=== PATIENT | male | born 1975 ===

== ENCOUNTER 2017-11-29 15:31 | Inpatient (IN) | payer SELFPAY ==
[2017-11-29] MEDS ORDERED: Sodium Chloride 0.9% 1,000 ML IV STA ×2 (16:01→20:28)
--- NOTE | 2017-11-29 16:06 | ED PDOC ---
HPI: Abdomen Chief Complaint (Nursing): Abdominal Pain Chief Complaint (Provider): abdominal pain History Per: Patient Onset/Duration Of Symptoms: Hrs Current Symptoms Are (Timing): Still Present Pain Scale Rating Of: 8 Location Of Pain/Discomfort: LLQ, Suprapubic Quality Of Discomfort: Stabbing, Gas Associated Symptoms: Chills, Urinary Symptoms. denies: Nausea, Vomiting, Diarrhea Exacerbating Factors: Movement Alleviating Factors: Rest Additional Complaint(s): 42 yo M with no known medical hx presented to ED with abdominal pain since 8 pm last night. Pain was 5/10 last night, and 8/10 this morning, which prompted visit to PMD, who referred to ED. Pt describes pain as stabbing in nature, started in LLQ, and radiates to suprapubic area. Alleviating factors- laying down. Aggravating factors - walking/movement. Did not take any meds at home. ROS: positive for dysuria- burning with urination x 2 days, chills, subjective fever; all other systems reviewed and negative. PMD: Dr. Ramiro Reese Denies chronic medical problems Surgeries: appendectomy age 6 Allergies: nkda Meds: none Social hx: denies tobacco, drug use, social alcohol use Fam hx: paternal DM2 Past Medical History Reviewed: Vital Signs Vital Signs: Last Vital Signs Temp 99.2 F 11/29/17 15:35 Pulse 101 H 11/29/17 15:35 Resp 16 11/29/17 15:35 BP 120/83 11/29/17 15:35 Pulse Ox 98 11/29/17 19:47 - Medical History PMH: No Chronic Diseases - Surgical History Surgical History: Appendectomy - Family History Family History: States: Diabetes - Social History Alcohol: Occasional Drugs: Denies - Allergies Allergies/Adverse Reactions: Allergies Allergy/AdvReac Type Severity Reaction Status Date / Time No Known Allergies Allergy Verified 11/29/17 15:35 Review of Systems ROS Statement: Except As Marked, All Systems Reviewed And Found Negative Constitutional: Positive for: Fever, Chills Gastrointestinal: Positive for: Abdominal Pain Genitourinary Male: Positive for: Dysuria Physical Exam - Reviewed Vital Signs Reviewed: Yes - Physical Exam Appears: Positive for: Non-toxic Skin: Positive for: Normal Color, Warm, Dry Eye Exam: Positive for: EOMI, PERRL ENT: Positive for: Pharynx Is (clear) Neck: Positive for: Supple Cardiovascular/Chest: Positive for: Regular Rate, Rhythm, Chest Non Tender Respiratory: Positive for: Normal Breath Sounds. Negative for: Accessory Muscle Use, Wheezing, Respiratory Distress Pulses-Post. Tibialis (L): 2+ Pulses-Post. Tibialis (R): 2+ Pulses-Radial (L): 2+ Pulses-Radial (R): 2+ Gastrointestinal/Abdominal: Positive for: Bowel Sounds, Soft, Tenderness (LLQ> suprapubic>RLQ) Back: Positive for: R CVA Tenderness. Negative for: L CVA Tenderness Extremity: Positive for: Capillary Refill (less than 2 sec). Negative for: Tenderness, Pedal Edema, Deformity Neurologic/Psych: Positive for: Alert, Oriented - Laboratory Results Result Diagrams: 11/29/17 16:25 11/29/17 16:25 - ECG O2 Sat by Pulse Oximetry: 98 Medical Decision Making Medical Decision Making: - CBC - CMP - 1L NS bolus - Urine dip - CT Abd/Pelvis w/ IV contrast -------- CBC: WBC 15.2 CT: IMPRESSION: Findings most compatible with marked segmental colitis affecting the sigmoid colon with prominent sympathetic cystitis favored as well. Two small abscesses are suspected cephalad to the dome of the urinary bladder. Extraluminal loculated peritoneal gas may indicate bowel perforation though this is not definite. Clinically correlate further. Etiology is likely infectious no inflammatory or even ischemic causes are not excluded. Underlying neoplasm is not favored but is not completely excluded. Blood cultures Started zosyn and vancomycin Continue fluids Admit to hospitalist service - Dr. Chowdary contacted, spoke to Dr. Bell. General surgery consult - Dr. Bell spoke to surgical first assistant. Attending: Dr. Missy Marks. Disposition - Clinical Impression Clinical Impression: Colitis, Abdominal pain - Patient ED Disposition Is Patient to be Admitted: Yes - Disposition Disposition Time: 19:46 Condition: STABLE - Pt Status Changed To: Hospital Disposition Of: Inpatient - Admit Certification Admit to Inpatient:: After my assessment, the patient will require hospitalization for at least two midnights. This is because of the severity of symptoms shown, intensity of services needed, and/or the medical risk in this patient being treated as an outpatient.
[2017-11-29 16:39] LABS: BASO % 0.2 % (0.0-2.0); EOS % 0.3 % (0.0-4.0); HEMOGLOBIN 15.5 g/dL (12.0-18.0); LYMPH # 1.8 K/uL (1.0-4.3); LYMPH % 11.9 % (20.0-40.0); MEAN CORPUSCULAR HGB CONC 33.7 g/dL (33.0-37.0); MEAN PLATELET VOLUME 8.8 fl (7.2-11.7); MONO # 1.4 K/uL (0.0-0.8); MONO % 9.2 % (0.0-10.0); NEUT # 11.9 K/uL (1.8-7.0); NEUT % 78.4 % (50.0-75.0); RBC 5.18 Mil/uL (4.40-5.90); RED CELL DISTRIBUTION WIDTH 14.5 % (11.5-14.5); WHITE BLOOD COUNT 15.2 K/uL (4.8-10.8)
[2017-11-29 16:51] LABS: ALB/GLOB RATIO 1.1 (1.0-2.1); ALBUMIN 4.5 g/dL (3.5-5.0); ALT/SGPT 27 U/L (21-72); AST/SGOT 31 U/L (17-59); BLOOD UREA NITROGEN 14 mg/dl (9-20); CALCIUM 9.5 mg/dL (8.4-10.2); GFR AFRICAN-AMERICAN > 60; GFR NON-AFRICAN AMERICAN > 60
[2017-11-29] MEDS ORDERED: Sodium Chloride 0.9% 50 ML IV ONE (16:54)
[2017-11-29] MEDS ORDERED: Iohexol 300 100 ML IJ ONE (16:54)
--- NOTE | 2017-11-29 18:12 | CT ---
Date of service: 11/29/2017 PROCEDURE: CT Abdomen and Pelvis with contrast HISTORY: Abd pain COMPARISON: None. TECHNIQUE: Following the intravenous administration of iodinated contrast material, a CT examination of the abdomen and pelvis performed from the domes of the diaphragms to the symphysis pubis with reformatted datasets provided not only axial but also sagittal and coronal planes. Oral contrast was not administered as per referring physician request. Contrast dose: Omnipaque 300, 95 cc Radiation dose: Total exam DLP = to 68.91 mGy-cm. This CT exam was performed using one or more of the following dose reduction techniques: Automated exposure control, adjustment of the mA and/or kV according to patient size, and/or use of iterative reconstruction technique. FINDINGS: LOWER THORAX: Unremarkable. LIVER: Unremarkable. No gross lesion or ductal dilatation. GALLBLADDER AND BILE DUCTS: Unremarkable. PANCREAS: Unremarkable. No gross lesion or ductal dilatation. SPLEEN: Unremarkable. ADRENALS: Unremarkable. No mass. KIDNEYS AND URETERS: Unremarkable. No hydronephrosis. No solid mass. VASCULATURE: Unremarkable. No aortic aneurysm. BOWEL: Stomach is collapsed and not well evaluated. No bowel obstruction is identified. However, there is gross thickening of the sigmoid colon with local pericolic reaction and limited inferior abdominal ascites associated. Reactive changes appear to extend to the urinary bladder which is collapsed but is suspected to have thickened tsang as well. There is a small area of fluid and gas collected between the urinary bladder and the sigmoid colon but close to the bladder. This may represent 2 small abscesses on the order of 1.5 cm greatest dimension in each case. No large abscess formation is appreciated or prominent free intrarenal gas. Extra luminal loculated gas is not excluded cephalad to the urinary bladder and may reflect sigmoid perforation. APPENDIX: Not clearly identified. Overall pattern does not favor appendicitis. Clinically correlate further. PERITONEUM: Please see bowel section above. No free intra peritoneal gas. LYMPH NODES: Unremarkable. No enlarged lymph nodes. BLADDER: Please see bowel section above. REPRODUCTIVE: Unremarkable. BONES: No acute fracture. OTHER FINDINGS: None. IMPRESSION: Findings most compatible with marked segmental colitis affecting the sigmoid colon with prominent sympathetic cystitis favored as well. Two small abscesses are suspected cephalad to the dome of the urinary bladder. Extraluminal loculated peritoneal gas may indicate bowel perforation though this is not definite. Clinically correlate further. Etiology is likely infectious no inflammatory or even ischemic causes are not excluded. Underlying neoplasm is not favored but is not completely excluded. The appendix is not identified and is not felt to be the cause of the impression described above. Clinically correlate further.
[2017-11-29] MEDS ORDERED: Piperacillin/Tazobact 3.375 GM in Sodium Chloride 0.9% 100 ML IVPB STA (18:54)
--- NOTE | 2017-11-29 19:51 | CP.PCM.HP ---
History of Present Illness - History of Present Illness History of Present Illness: 42 yo male with no significant PMH history came complaining of severe, persistent LLQ pain, non-radiating since last night accompanied with dysuria. Denied nausea or vomiting. Also denied fever or chills. Present on Admission - Present on Admission Any Indicators Present on Admission: No History of DVT/PE: No History of Uncontrolled Diabetes: No Urinary Catheter: No Decubitus Ulcer Present: No Review of Systems - Review of Systems All systems: reviewed and no additional remarkable complaints except (aside from those mentioned above, 12 point system review were negative by me) Past Patient History - Tetanus Immunizations Tetanus Immunization: Unknown - Past Medical History & Family History Past Medical History?: No Past Family History: Reviewed and not pertinent - Past Social History Smoking Status: Never Smoked Chewing Tobacco Use: No Cigar Use: No Alcohol: Occasional Drugs: Denies Home Situation {Lives}: With Family - CARDIAC Hx Cardiac Disorders: No - PULMONARY Hx Respiratory Disorders: No - NEUROLOGICAL Hx Neurological Disorder: No - HEENT Hx HEENT Problems: No - RENAL Hx Chronic Kidney Disease: No - ENDOCRINE/METABOLIC Hx Endocrine Disorders: No - HEMATOLOGICAL/ONCOLOGICAL Hx Blood Disorders: No - INTEGUMENTARY Hx Dermatological Problems: No - MUSCULOSKELETAL/RHEUMATOLOGICAL Hx Musculoskeletal Disorders: No - GASTROINTESTINAL Hx Gastrointestinal Disorders: No - GENITOURINARY/GYNECOLOGICAL Hx Genitourinary Disorders: No - PSYCHIATRIC Hx Psychophysiologic Disorder: No - SURGICAL HISTORY Hx Appendectomy: Yes (at 6 years old) - ANESTHESIA Hx Anesthesia: Yes Meds Allergies/Adverse Reactions: Allergies Allergy/AdvReac Type Severity Reaction Status Date / Time No Known Allergies Allergy Verified 11/29/17 15:35 Physical Exam - Constitutional Appears: No Acute Distress - Head Exam Head Exam: ATRAUMATIC - Eye Exam Eye Exam: PERRL. absent: Scleral icterus - ENT Exam ENT Exam: Mucous Membranes Moist - Neck Exam Neck exam: Negative for: Meningismus - Respiratory Exam Respiratory Exam: absent: Rales, Rhonchi, Wheezes, Respiratory Distress - Cardiovascular Exam Cardiovascular Exam: Tachycardia - GI/Abdominal Exam GI & Abdominal Exam: Soft, Tenderness (tenderness on LLQ on palpation). absent : Guarding, Rebound - Rectal Exam Rectal Exam: Deferred - Extremities Exam Extremities exam: Negative for: calf tenderness, pedal edema - Back Exam Back exam: absent: tenderness - Neurological Exam Neurological exam: Alert, Oriented x3 - Psychiatric Exam Psychiatric exam: Normal Affect - Skin Skin Exam: Dry, Intact Results - Vital Signs Recent Vital Signs: Last Vital Signs Temp 99.2 F 11/29/17 15:35 Pulse 101 H 11/29/17 15:35 Resp 16 11/29/17 15:35 BP 120/83 11/29/17 15:35 Pulse Ox 98 11/29/17 19:47 - Labs Result Diagrams: 11/29/17 16:25 11/29/17 16:25 Labs: Laboratory Results - last 24 hr 11/29/17 11/29/17 16:25 16:25 WBC 15.2 H RBC 5.18 Hgb 15.5 Hct 46.1 MCV 89.0 MCH 30.0 MCHC 33.7 RDW 14.5 Plt Count 284 MPV 8.8 Neut % (Auto) 78.4 H Lymph % (Auto) 11.9 L [place] % (Auto) 9.2 Eos % (Auto) 0.3 Baso % (Auto) 0.2 Neut # (Auto) 11.9 H Lymph # (Auto) 1.8 [place] # (Auto) 1.4 H Eos # (Auto) 0.0 Baso # (Auto) 0.0 Sodium 140 Potassium 4.2 Chloride 98 Carbon Dioxide 30 Anion Gap 16 BUN 14 Creatinine 0.8 Est GFR ( Amer) > 60 Est GFR (Non-Af Amer) > 60 Random Glucose 87 Calcium 9.5 Total Bilirubin 1.2 AST 31 ALT 27 Alkaline Phosphatase 65 Total Protein 8.3 H Albumin 4.5 Globulin 3.9 Albumin/Globulin Ratio 1.1 Assessment & Plan - Assessment and Plan (Free Text) Assessment: 42 yo male with no significant PMH history came complaining of severe, persistent LLQ pain, non-radiating since last night accompanied with dysuria. Denied nausea or vomiting. Also denied fever or chills. 1. Sepsis secondary to Sigmoid Colitis with Abscess Formation and possible Perforation surgical consult with Dr Marks (called by ER) blood culture x 2 keep NPO IV hydration with NSS 200cc/hr Morphine 2mg IV q 4hrs prn continue Zosyn 3.375 gm IV q 6hrs Flagyl 500mg IV q 8
[2017-11-29] MEDS ORDERED: Piperacillin/Tazobact 3.375 gm Inj IVPB ONE (20:16)
[2017-11-29] MEDS ORDERED: Vancomycin 1 g Inj ONE (20:17)
--- NOTE | 2017-11-29 20:34 | CP.PCM.CON ---
<CastroAdilene mendez - Last Filed: 11/29/17 20:23> History of Present Illness - History of Present Illness History of Present Illness: General Surgery - Dr. Marks 42yo M w/ no PMH, presenting with lower abdominal pain x1day. Pt states the pain started yesterday night, sudden onset with gradual worsening of the pain over the course of the evening. He describes it as located in the lower abdomen and suprapubic region, non-radiating, 8/10, worsened by movement and walking around. He also admits to subjective Fevers and Dysuria. Pt denies any Chills, Nausea, Vomiting, Diarrhea, Constipation, Hematuria, Pneumaturia, SOB or chest pain. He states that he had 1 episode of the pain about 1 week ago but it was milder and went away on it's own. PMH: none PSH: Open Appendectomy at age 6 No home medications NKDA Social: No Smoking, Social ETOH, No illicit drug use Family hx: Father w/ DM Pt was seen in the ED. Vitals w/ mild tachycardia in low 100s, Afebrile, Normotensive. Labs significant for WBC of 15.2, otherwise WNL. A CT abdomen/ pelvis was done which showed marked sigmoid colitis and prominent cystitis, 2 small abscesses above the dome of the urinary bladder and extraluminal loculated peritoneal gas. Review of Systems - Review of Systems All systems: reviewed and no additional remarkable complaints except (as per HPI ) Past Patient History - Tetanus Immunizations Tetanus Immunization: Unknown - Past Medical History & Family History Past Medical History?: No Past Family History: Reviewed and not pertinent - Past Social History Alcohol: Occasional Drugs: Denies - CARDIAC Hx Cardiac Disorders: No - PULMONARY Hx Respiratory Disorders: No - NEUROLOGICAL Hx Neurological Disorder: No - HEENT Hx HEENT Problems: No - RENAL Hx Chronic Kidney Disease: No - ENDOCRINE/METABOLIC Hx Endocrine Disorders: No - HEMATOLOGICAL/ONCOLOGICAL Hx Blood Disorders: No - INTEGUMENTARY Hx Dermatological Problems: No - MUSCULOSKELETAL/RHEUMATOLOGICAL Hx Musculoskeletal Disorders: No - GASTROINTESTINAL Hx Gastrointestinal Disorders: No - GENITOURINARY/GYNECOLOGICAL Hx Genitourinary Disorders: No - PSYCHIATRIC Hx Psychophysiologic Disorder: No - SURGICAL HISTORY Hx Appendectomy: Yes - ANESTHESIA Hx Anesthesia: Yes Meds Allergies/Adverse Reactions: Allergies Allergy/AdvReac Type Severity Reaction Status Date / Time No Known Allergies Allergy Verified 11/29/17 15:35 - Medications Medications: Current Medications Sodium Chloride (Sodium Chloride 0.9%) 1,000 mls @ 100 mls/hr IV .Q10H STA Stop: 11/30/17 02:00 Last Admin: 11/29/17 16:29 Dose: 100 mls/hr Metronidazole (Flagyl 500mg/100ml Ns) 100 mls @ 100 mls/hr IVPB Q8 ROSARIO PRN Reason: Protocol Lactated Ringer's (Lactated Ringer's) 1,000 mls @ 125 mls/hr IV .Q8H ROSARIO Piperacillin Sod/Tazobactam (Sod 3.375 gm/ Sodium Chloride) 100 mls @ 100 mls/ hr IVPB Q6 ROSARIO PRN Reason: Protocol Ketorolac Tromethamine (Toradol) 15 mg IVP Q6 PRN PRN Reason: Pain, moderate (4-7) Physical Exam - Constitutional Appears: No Acute Distress - Head Exam Head Exam: ATRAUMATIC, NORMAL INSPECTION, NORMOCEPHALIC - Eye Exam Eye Exam: EOMI, Normal appearance - ENT Exam ENT Exam: Mucous Membranes Dry - Respiratory Exam Respiratory Exam: NORMAL BREATHING PATTERN. absent: Respiratory Distress - Cardiovascular Exam Cardiovascular Exam: Tachycardia, REGULAR RHYTHM - GI/Abdominal Exam GI & Abdominal Exam: Firm (LLQ and Suprapubic region), Guarding, Mass (LLQ/ Suprapubic), Tenderness. absent: Distended, Hernia, Rigid - Neurological Exam Neurological exam: Alert, Oriented x3 - Psychiatric Exam Psychiatric exam: Normal Affect, Normal Mood - Skin Skin Exam: Dry, Intact Results - Vital Signs Recent Vital Signs: Last Vital Signs Temp 99.2 F 11/29/17 15:35 Pulse 101 H 11/29/17 15:35 Resp 16 11/29/17 15:35 BP 120/83 11/29/17 15:35 Pulse Ox 98 11/29/17 20:09 - Labs Result Diagrams: 11/29/17 16:25 11/29/17 16:25 Labs: Laboratory Results - last 24 hr 11/29/17 11/29/17 16:25 16:25 WBC 15.2 H RBC 5.18 Hgb 15.5 Hct 46.1 MCV 89.0 MCH 30.0 MCHC 33.7 RDW 14.5 Plt Count 284 MPV 8.8 Neut % (Auto) 78.4 H Lymph % (Auto) 11.9 L [place] % (Auto) 9.2 Eos % (Auto) 0.3 Baso % (Auto) 0.2 Neut # (Auto) 11.9 H Lymph # (Auto) 1.8 [place] # (Auto) 1.4 H Eos # (Auto) 0.0 Baso # (Auto) 0.0 Sodium 140 Potassium 4.2 Chloride 98 Carbon Dioxide 30 Anion Gap 16 BUN 14 Creatinine 0.8 Est GFR ( Amer) > 60 Est GFR (Non-Af Amer) > 60 Random Glucose 87 Calcium 9.5 Total Bilirubin 1.2 AST 31 ALT 27 Alkaline Phosphatase 65 Total Protein 8.3 H Albumin 4.5 Globulin 3.9 Albumin/Globulin Ratio 1.1 - Imaging and Cardiology CT scan - abdomen Status: Image reviewed by me, Report reviewed by me Assessment & Plan - Assessment and Plan (Free Text) Assessment: 42yo M w/ acute sigmoid colitis, likely diverticulitis, w/ small pericolonic abscess and cystitis -Admitted to medical service -Maintain NPO for now -IVF hydration -IV ABx: Zosyn -Pain control prn -Urinalysis and Urine Cx, r/o colovesical fistula -Serial abdominal exams -No surgical intervention planned at this time, will continue to monitor, possible OR if worsens clinically DW Dr. Kendrick Castro PGY4 <Francheska Marks - Last Filed: 11/30/17 10:57> Meds - Medications Medications: Current Medications Metronidazole (Flagyl 500mg/100ml Ns) 100 mls @ 100 mls/hr IVPB Q8 ROSARIO PRN Reason: Protocol Last Admin: 11/30/17 00:51 Dose: 100 mls/hr Piperacillin Sod/Tazobactam (Sod 3.375 gm/ Sodium Chloride) 100 mls @ 100 mls/ hr IVPB Q6 ROSARIO PRN Reason: Protocol Last Admin: 11/30/17 09:50 Dose: 100 mls/hr Lactated Ringer's (Lactated Ringer's) 1,000 mls @ 150 mls/hr IV .Q6H40M [facility] Last Admin: 11/30/17 09:05 Dose: 150 mls/hr Ketorolac Tromethamine (Toradol) 15 mg IVP Q6 PRN PRN Reason: Pain, moderate (4-7) Morphine Sulfate (Morphine) 2 mg IVP Q6 PRN PRN Reason: Pain, moderate (4-7) Results - Vital Signs Recent Vital Signs: Last Vital Signs Temp 97.8 F 11/30/17 08:00 Pulse 64 11/30/17 08:00 Resp 20 11/30/17 08:00 BP 112/74 11/30/17 08:00 Pulse Ox 100 11/30/17 08:00 - Labs Result Diagrams: 11/30/17 05:00 11/30/17 05:00 Labs: Laboratory Results - last 24 hr 11/29/17 11/29/17 11/29/17 16:25 16:25 20:17 WBC 15.2 H RBC 5.18 Hgb 15.5 Hct 46.1 MCV 89.0 MCH 30.0 MCHC 33.7 RDW 14.5 Plt Count 284 MPV 8.8 Neut % (Auto) 78.4 H Lymph % (Auto) 11.9 L [place] % (Auto) 9.2 Eos % (Auto) 0.3 Baso % (Auto) 0.2 Neut # (Auto) 11.9 H Lymph # (Auto) 1.8 [place] # (Auto) 1.4 H Eos # (Auto) 0.0 Baso # (Auto) 0.0 pO2 VBG pH VBG pCO2 VBG HCO3 VBG Total CO2 VBG O2 Sat (Calc) VBG Base Excess VBG Potassium Glucose Lactate FiO2 Sodium 140 Potassium 4.2 Chloride 98 Carbon Dioxide 30 Anion Gap 16 BUN 14 Creatinine 0.8 Est GFR ( Amer) > 60 Est GFR (Non-Af Amer) > 60 Random Glucose 87 Calcium 9.5 Total Bilirubin 1.2 AST 31 ALT 27 Alkaline Phosphatase 65 Total Protein 8.3 H Albumin 4.5 Globulin 3.9 Albumin/Globulin Ratio 1.1 Venous Blood Potassium Urine Color Yellow Urine Clarity Slighty-cloudy Urine pH 7.0 Ur Specific [place] 1.026 Urine Protein Negative Urine Glucose (UA) Neg Urine Ketones Trace Urine Blood Negative Urine Nitrate Negative Urine Bilirubin Negative Urine Urobilinogen 0.2-1.0 Ur Leukocyte Esterase Large Urine RBC (Auto) 2 Urine Microscopic WBC 34 H 11/29/17 11/30/17 11/30/17 22:55 05:00 05:00 WBC 10.8 RBC 4.77 Hgb 14.6 Hct 42.7 MCV 89.4 MCH 30.6 MCHC 34.2 RDW 14.3 Plt Count 288 MPV 8.9 Neut % (Auto) 66.8 Lymph % (Auto) 21.4 [place] % (Auto) 9.8 Eos % (Auto) 1.4 Baso % (Auto) 0.6 Neut # (Auto) 7.2 H Lymph # (Auto) 2.3 [place] # (Auto) 1.1 H Eos # (Auto) 0.1 Baso # (Auto) 0.1 pO2 34 VBG pH 7.39 VBG pCO2 48 VBG HCO3 26.6 VBG Total CO2 30.6 H VBG O2 Sat (Calc) 78.6 H VBG Base Excess 3.3 H VBG Potassium 3.6 Glucose 83 Lactate 1.0 FiO2 21.0 Sodium 134.0 140 Potassium 4.0 Chloride 101.0 100 Carbon Dioxide 28 Anion Gap 16 BUN 12 Creatinine 1.0 Est GFR ( Amer) > 60 Est GFR (Non-Af Amer) > 60 Random Glucose 81 Calcium 9.2 Total Bilirubin 1.6 H AST 25 ALT 27 Alkaline Phosphatase 55 Total Protein 7.3 Albumin 3.8 Globulin 3.5 Albumin/Globulin Ratio 1.1 Venous Blood Potassium 3.6 Urine Color Urine Clarity Urine pH Ur Specific [place] Urine Protein Urine Glucose (UA) Urine Ketones Urine Blood Urine Nitrate Urine Bilirubin Urine Urobilinogen Ur Leukocyte Esterase Urine RBC (Auto) Urine Microscopic WBC Assessment & Plan - Assessment and Plan (Free Text) Plan: Patient seen and examined at bedside with resident staff. Moderate-severe sigmoid diverticulitis with pericolonic/pelvic fluid. Localized peritonitis. Subjective pain and WBC improved with PO and Abx. Low abd tenderness slightly improved but still significant on my exam. Continue strict NPO for now with IV abx and IVF. Strict in's and out's. Can remove portillo if patient able to void freely. Increase IVF rate and monitor Cr. Serial abdominal exams. - Date & Time Date: 11/30/17
[2017-11-29 20:40] LABS: URINE BILIRUBIN NEGATIVE (NEGATIVE); URINE BLOOD NEGATIVE (NEGATIVE); URINE CLARITY SLIGHTY-CLOUDY (Clear); URINE COLOR YELLOW (YELLOW); URINE GLUCOSE (UA) NEG (Normal); URINE LEUKOCYTE ESTERASE LARGE Leu/uL (Negative); URINE PROTEIN NEGATIVE (NEGATIVE); URINE UROBILINOGEN 0.2-1.0 mg/dL (0.2-1.0)
[2017-11-29] MEDS: Lactated Ringer's 1,000 ML IV SCH (21:44)
[2017-11-29 22:58] LABS: VENOUS BLOOD GAS BASE EXCESS 3.3 mmol/L (0.0-2.0); VENOUS BLOOD GAS PCO2 48 mmHg (40-60); VENOUS BLOOD GAS PO2 34 mm/Hg (30-55); VENOUS BLOOD PH 7.39 (7.32-7.43)
[2017-11-29] MEDS: Piperacillin/Tazobact 3.375 GM in Sodium Chloride 0.9% 100 ML IVPB SCH (23:26)
[2017-11-30] MEDS: metroNIDAZOLE 500mg/100ml NS 100 ML IVPB SCH ×2 (00:51→09:42)
[2017-11-30] MEDS: Piperacillin/Tazobact 3.375 GM in Sodium Chloride 0.9% 100 ML IVPB SCH ×4 (03:58→22:34)
[2017-11-30] MEDS: Lactated Ringer's 1,000 ML IV SCH (04:01)
[2017-11-30 05:39] LABS: BASO # 0.1 K/uL (0.0-0.2); BASO % 0.6 % (0.0-2.0); EOS # 0.1 K/uL (0.0-0.7); EOS % 1.4 % (0.0-4.0); HEMOGLOBIN 14.6 g/dL (12.0-18.0); LYMPH # 2.3 K/uL (1.0-4.3); LYMPH % 21.4 % (20.0-40.0); MEAN CELL VOLUME 89.4 fl (80.0-94.0); MEAN CORPUSCULAR HEMOGLOBIN 30.6 pg (27.0-31.0); MEAN CORPUSCULAR HGB CONC 34.2 g/dL (33.0-37.0); MEAN PLATELET VOLUME 8.9 fl (7.2-11.7); MONO # 1.1 K/uL (0.0-0.8); MONO % 9.8 % (0.0-10.0); NEUT # 7.2 K/uL (1.8-7.0); NEUT % 66.8 % (50.0-75.0); RBC 4.77 Mil/uL (4.40-5.90); RED CELL DISTRIBUTION WIDTH 14.3 % (11.5-14.5); WHITE BLOOD COUNT 10.8 K/uL (4.8-10.8)
[2017-11-30 05:45] LABS: ALB/GLOB RATIO 1.1 (1.0-2.1); ALBUMIN 3.8 g/dL (3.5-5.0); ALT/SGPT 27 U/L (21-72); AST/SGOT 25 U/L (17-59); BLOOD UREA NITROGEN 12 mg/dl (9-20); CALCIUM 9.2 mg/dL (8.4-10.2); GFR AFRICAN-AMERICAN > 60; GFR NON-AFRICAN AMERICAN > 60
--- NOTE | 2017-11-30 07:23 | CP.PCM.PN ---
<Christina Dubon - Last Filed: 11/30/17 07:19> Subjective - Date & Time of Evaluation Date of Evaluation: 11/30/17 Time of Evaluation: 07:20 - Subjective Subjective: Surgery Pt seen and examined. Pain controlled. Not requiring pain meds overnight. ambulates. Chow in place had 800cc yellow urine/12hrs. 70cc/hr. Denies fever, nausea, vomiting, diarrhea. REgular BM yesterday. Objective - Vital Signs/Intake and Output Vital Signs (last 24 hours): Temp Pulse Resp BP Pulse Ox 97.8 F 67 18 110/70 99 11/30/17 04:52 11/30/17 04:52 11/30/17 04:52 11/30/17 04:52 11/30/17 04:52 - Medications Medications: Current Medications Metronidazole (Flagyl 500mg/100ml Ns) 100 mls @ 100 mls/hr IVPB Q8 ROSARIO PRN Reason: Protocol Last Admin: 11/30/17 00:51 Dose: 100 mls/hr Lactated Ringer's (Lactated Ringer's) 1,000 mls @ 125 mls/hr IV .Q8H [facility] Last Admin: 11/30/17 04:01 Dose: Not Given Piperacillin Sod/Tazobactam (Sod 3.375 gm/ Sodium Chloride) 100 mls @ 100 mls/ hr IVPB Q6 ROSARIO PRN Reason: Protocol Last Admin: 11/30/17 03:58 Dose: 100 mls/hr Ketorolac Tromethamine (Toradol) 15 mg IVP Q6 PRN PRN Reason: Pain, moderate (4-7) Morphine Sulfate (Morphine) 2 mg IVP Q6 PRN PRN Reason: Pain, moderate (4-7) - Labs Labs: 11/30/17 05:00 11/30/17 05:00 - Constitutional Appears: No Acute Distress - Head Exam Head Exam: ATRAUMATIC, NORMAL INSPECTION, NORMOCEPHALIC - Eye Exam Eye Exam: EOMI, Normal appearance, PERRL Pupil Exam: NORMAL ACCOMODATION, PERRL - ENT Exam ENT Exam: Mucous Membranes Moist, Normal Exam - Neck Exam Neck Exam: Full ROM, Normal Inspection. absent: Lymphadenopathy - Respiratory Exam Respiratory Exam: NORMAL BREATHING PATTERN - Cardiovascular Exam Cardiovascular Exam: REGULAR RHYTHM - GI/Abdominal Exam GI & Abdominal Exam: Firm, Soft, Tenderness. absent: Distended, Mass, Pulsatile Mass, Rebound Additional comments: Low abd TTP. - Exam Exam: NORMAL INSPECTION (Chow 70cc/hr) - Extremities Exam Extremities Exam: Full ROM, Normal Capillary Refill, Normal Inspection. absent : Joint Swelling, Pedal Edema - Back Exam Back Exam: NORMAL INSPECTION - Neurological Exam Neurological Exam: Alert, Awake, CN II-XII Intact, Normal Gait, Oriented x3 - Psychiatric Exam Psychiatric exam: Normal Affect, Normal Mood - Skin Skin Exam: Dry, Intact, Normal Color, Warm Assessment and Plan - Assessment and Plan (Free Text) Assessment: 42yo M w/ acute sigmoid colitis, likely diverticulitis, w/ small pericolonic abscess and cystitis -Medical management -Maintain NPO for now -IVF hydration: LR 125 -IV ABx: Zosyn, Flagyl -Pain control prn, Toradol IV -Urinalysis and Urine Cx, r/o colovesical fistula -Serial abdominal exams -No surgical intervention planned at this time, will continue to monitor, possible OR if worsens clinically -GI rec Will DW Dr. Marks <Francheska Marks - Last Filed: 11/30/17 11:09> Objective - Vital Signs/Intake and Output Vital Signs (last 24 hours): Temp Pulse Resp BP Pulse Ox 97.8 F 64 20 112/74 100 11/30/17 08:00 11/30/17 08:00 11/30/17 08:00 11/30/17 08:00 11/30/17 08:00 - Medications Medications: Current Medications Metronidazole (Flagyl 500mg/100ml Ns) 100 mls @ 100 mls/hr IVPB Q8 ROSARIO PRN Reason: Protocol Last Admin: 11/30/17 00:51 Dose: 100 mls/hr Piperacillin Sod/Tazobactam (Sod 3.375 gm/ Sodium Chloride) 100 mls @ 100 mls/ hr IVPB Q6 ROSARIO PRN Reason: Protocol Last Admin: 11/30/17 09:50 Dose: 100 mls/hr Lactated Ringer's (Lactated Ringer's) 1,000 mls @ 150 mls/hr IV .Q6H40M [facility] Last Admin: 11/30/17 09:05 Dose: 150 mls/hr Ketorolac Tromethamine (Toradol) 15 mg IVP Q6 PRN PRN Reason: Pain, moderate (4-7) Morphine Sulfate (Morphine) 2 mg IVP Q6 PRN PRN Reason: Pain, moderate (4-7) - Labs Labs: 11/30/17 05:00 11/30/17 05:00 Assessment and Plan - Assessment and Plan (Free Text) Plan: See HPI for recommendations. Continue NPO, IVF and Abx. Serial abdominal exams. Will need colonoscopy post-discharge.
[2017-11-30] MEDS ORDERED: Lactated Ringer's 1,000 ML IV SCH (08:36)
--- NOTE | 2017-11-30 10:00 | CP.PCM.CON ---
<Lovely Marks - Last Filed: 11/30/17 09:52> History of Present Illness - History of Present Illness History of Present Illness: PGY5 Initial GI Consult Jeffrey Moses is a 42M w/ hx of diverticulitis (Jun [id number] who presents to the ER with complaint of periumbical and suprapubic pain. Pt states that the onset was 2 days prior and it was 8 out of 10. He states that it progressively worsened and desctibed it as sharp. He notes radiation to the left groin. He also has associated fevers, but denies any chills or diaphoresis. Pt denies any diarrhea, nausea or vomiting. He had a CT of the Abd in the ER which revealed focal peritoneal air and thickening of the sigmoid with possible abscess. He was started on zosyn and surgery is also on board. PMHx: diverticulits PSHx: appendectomy Social Hx: denies illicit drugs and smoking, social ETOH Family Hx: Denies any GI related malignancies ROS: 12 point ROS conducted, neg other than above Past Patient History - Tetanus Immunizations Tetanus Immunization: Unknown - Past Medical History & Family History Past Medical History?: No - Past Social History Smoking Status: Never Smoked - CARDIAC Hx Cardiac Disorders: No - PULMONARY Hx Respiratory Disorders: No - NEUROLOGICAL Hx Neurological Disorder: No - HEENT Hx HEENT Problems: No - RENAL Hx Chronic Kidney Disease: No - ENDOCRINE/METABOLIC Hx Endocrine Disorders: No - HEMATOLOGICAL/ONCOLOGICAL Hx Blood Disorders: No Hx AIDS: No Hx Human Immunodeficiency Virus (HIV): No - INTEGUMENTARY Hx Dermatological Problems: No - MUSCULOSKELETAL/RHEUMATOLOGICAL Hx Musculoskeletal Disorders: No Hx Falls: No - GASTROINTESTINAL Hx Gastrointestinal Disorders: No - GENITOURINARY/GYNECOLOGICAL Hx Genitourinary Disorders: No - PSYCHIATRIC Hx Psychophysiologic Disorder: No Hx Substance Use: No - SURGICAL HISTORY Hx Appendectomy: Yes - ANESTHESIA Hx Anesthesia: Yes Hx Anesthesia Reactions: No Meds Allergies/Adverse Reactions: Allergies Allergy/AdvReac Type Severity Reaction Status Date / Time No Known Allergies Allergy Verified 11/29/17 15:35 - Medications Medications: Current Medications Metronidazole (Flagyl 500mg/100ml Ns) 100 mls @ 100 mls/hr IVPB Q8 ROSARIO PRN Reason: Protocol Last Admin: 11/30/17 00:51 Dose: 100 mls/hr Piperacillin Sod/Tazobactam (Sod 3.375 gm/ Sodium Chloride) 100 mls @ 100 mls/ hr IVPB Q6 ROSARIO PRN Reason: Protocol Last Admin: 11/30/17 09:50 Dose: 100 mls/hr Lactated Ringer's (Lactated Ringer's) 1,000 mls @ 150 mls/hr IV .Q6H40M [facility] Last Admin: 11/30/17 09:05 Dose: 150 mls/hr Ketorolac Tromethamine (Toradol) 15 mg IVP Q6 PRN PRN Reason: Pain, moderate (4-7) Morphine Sulfate (Morphine) 2 mg IVP Q6 PRN PRN Reason: Pain, moderate (4-7) Physical Exam - Constitutional Appears: Well, No Acute Distress - Head Exam Head Exam: ATRAUMATIC, NORMOCEPHALIC - Eye Exam Eye Exam: Normal appearance - ENT Exam ENT Exam: Mucous Membranes Moist, Normal Exam - Neck Exam Neck exam: Positive for: Normal Inspection - Respiratory Exam Respiratory Exam: Clear to Auscultation Bilateral, NORMAL BREATHING PATTERN. absent: Rales, Rhonchi, Wheezes, Respiratory Distress - Cardiovascular Exam Cardiovascular Exam: REGULAR RHYTHM, +S1, +S2 - GI/Abdominal Exam GI & Abdominal Exam: Normal Bowel Sounds, Soft, Tenderness (periumbilical and suprapubic). absent: Diminished Bowel Sounds, Distended, Guarding, Hernia, Organomegaly, Rigid - Extremities Exam Extremities exam: Negative for: joint swelling, pedal edema - Neurological Exam Neurological exam: Alert, Oriented x3 - Psychiatric Exam Psychiatric exam: Normal Affect, Normal Mood - Skin Skin Exam: Dry, Intact, Normal Color, Warm Results - Vital Signs Recent Vital Signs: Last Vital Signs Temp 97.8 F 11/30/17 08:00 Pulse 64 11/30/17 08:00 Resp 20 11/30/17 08:00 BP 112/74 11/30/17 08:00 Pulse Ox 100 11/30/17 08:00 - Labs Result Diagrams: 11/30/17 05:00 11/30/17 05:00 Labs: Laboratory Results - last 24 hr 11/29/17 11/29/17 11/29/17 16:25 16:25 20:17 WBC 15.2 H RBC 5.18 Hgb 15.5 Hct 46.1 MCV 89.0 MCH 30.0 MCHC 33.7 RDW 14.5 Plt Count 284 MPV 8.8 Neut % (Auto) 78.4 H Lymph % (Auto) 11.9 L [place] % (Auto) 9.2 Eos % (Auto) 0.3 Baso % (Auto) 0.2 Neut # (Auto) 11.9 H Lymph # (Auto) 1.8 [place] # (Auto) 1.4 H Eos # (Auto) 0.0 Baso # (Auto) 0.0 pO2 VBG pH VBG pCO2 VBG HCO3 VBG Total CO2 VBG O2 Sat (Calc) VBG Base Excess VBG Potassium Glucose Lactate FiO2 Sodium 140 Potassium 4.2 Chloride 98 Carbon Dioxide 30 Anion Gap 16 BUN 14 Creatinine 0.8 Est GFR ( Amer) > 60 Est GFR (Non-Af Amer) > 60 Random Glucose 87 Calcium 9.5 Total Bilirubin 1.2 AST 31 ALT 27 Alkaline Phosphatase 65 Total Protein 8.3 H Albumin 4.5 Globulin 3.9 Albumin/Globulin Ratio 1.1 Venous Blood Potassium Urine Color Yellow Urine Clarity Slighty-cloudy Urine pH 7.0 Ur Specific [place] 1.026 Urine Protein Negative Urine Glucose (UA) Neg Urine Ketones Trace Urine Blood Negative Urine Nitrate Negative Urine Bilirubin Negative Urine Urobilinogen 0.2-1.0 Ur Leukocyte Esterase Large Urine RBC (Auto) 2 Urine Microscopic WBC 34 H 11/29/17 11/30/17 11/30/17 22:55 05:00 05:00 WBC 10.8 RBC 4.77 Hgb 14.6 Hct 42.7 MCV 89.4 MCH 30.6 MCHC 34.2 RDW 14.3 Plt Count 288 MPV 8.9 Neut % (Auto) 66.8 Lymph % (Auto) 21.4 [place] % (Auto) 9.8 Eos % (Auto) 1.4 Baso % (Auto) 0.6 Neut # (Auto) 7.2 H Lymph # (Auto) 2.3 [place] # (Auto) 1.1 H Eos # (Auto) 0.1 Baso # (Auto) 0.1 pO2 34 VBG pH 7.39 VBG pCO2 48 VBG HCO3 26.6 VBG Total CO2 30.6 H VBG O2 Sat (Calc) 78.6 H VBG Base Excess 3.3 H VBG Potassium 3.6 Glucose 83 Lactate 1.0 FiO2 21.0 Sodium 134.0 140 Potassium 4.0 Chloride 101.0 100 Carbon Dioxide 28 Anion Gap 16 BUN 12 Creatinine 1.0 Est GFR ( Amer) > 60 Est GFR (Non-Af Amer) > 60 Random Glucose 81 Calcium 9.2 Total Bilirubin 1.6 H AST 25 ALT 27 Alkaline Phosphatase 55 Total Protein 7.3 Albumin 3.8 Globulin 3.5 Albumin/Globulin Ratio 1.1 Venous Blood Potassium 3.6 Urine Color Urine Clarity Urine pH Ur Specific [place] Urine Protein Urine Glucose (UA) Urine Ketones Urine Blood Urine Nitrate Urine Bilirubin Urine Urobilinogen Ur Leukocyte Esterase Urine RBC (Auto) Urine Microscopic WBC Assessment & Plan - Assessment and Plan (Free Text) Assessment: Jeffrey Moses is a 42M w/ hx of diverticulitis who presents to the ED with abd pain Sigmoid Colitis w/ microperforation, likely complicated diverticulitis Complicated Diverticulitis w/ possible abscess and microperformation Abd pain 2/2 above Plan: -keep NPO as per surgery -continue Zosyn -surgery on board and not a surgical candidate -recommend oupt colonoscopy 6-8 weeks after symptoms resolve -will need follow-up in GI clinic -blood cultures pending -avoid NSAID -diet as per surgery D/W Dr. Carter <Cayden Carter - Last Filed: 11/30/17 14:10> Meds - Medications Medications: Current Medications Piperacillin Sod/Tazobactam (Sod 3.375 gm/ Sodium Chloride) 100 mls @ 100 mls/ hr IVPB Q6 ROSARIO PRN Reason: Protocol Last Admin: 11/30/17 09:50 Dose: 100 mls/hr Potassium Chloride/Dextrose/Sod Cl (Potassium Chl 20 Meq In D5-1/2ns) 1,000 mls @ 125 mls/hr IV .Q8H [facility] Stop: 12/01/17 11:14 Ketorolac Tromethamine (Toradol) 15 mg IVP Q6 PRN PRN Reason: Pain, moderate (4-7) Morphine Sulfate (Morphine) 2 mg IVP Q6 PRN PRN Reason: Pain, moderate (4-7) Results - Vital Signs Recent Vital Signs: Last Vital Signs Temp 98.2 F 11/30/17 12:36 Pulse 69 11/30/17 12:36 Resp 20 11/30/17 12:36 BP 100/69 11/30/17 12:36 Pulse Ox 98 11/30/17 12:36 - Labs Result Diagrams: 11/30/17 05:00 11/30/17 05:00 Labs: Laboratory Results - last 24 hr 11/29/17 11/29/17 11/29/17 16:25 16:25 20:17 WBC 15.2 H RBC 5.18 Hgb 15.5 Hct 46.1 MCV 89.0 MCH 30.0 MCHC 33.7 RDW 14.5 Plt Count 284 MPV 8.8 Neut % (Auto) 78.4 H Lymph % (Auto) 11.9 L [place] % (Auto) 9.2 Eos % (Auto) 0.3 Baso % (Auto) 0.2 Neut # (Auto) 11.9 H Lymph # (Auto) 1.8 [place] # (Auto) 1.4 H Eos # (Auto) 0.0 Baso # (Auto) 0.0 pO2 VBG pH VBG pCO2 VBG HCO3 VBG Total CO2 VBG O2 Sat (Calc) VBG Base Excess VBG Potassium Glucose Lactate FiO2 Sodium 140 Potassium 4.2 Chloride 98 Carbon Dioxide 30 Anion Gap 16 BUN 14 Creatinine 0.8 Est GFR ( Amer) > 60 Est GFR (Non-Af Amer) > 60 Random Glucose 87 Calcium 9.5 Total Bilirubin 1.2 AST 31 ALT 27 Alkaline Phosphatase 65 Total Protein 8.3 H Albumin 4.5 Globulin 3.9 Albumin/Globulin Ratio 1.1 Venous Blood Potassium Urine Color Yellow Urine Clarity Slighty-cloudy Urine pH 7.0 Ur Specific [place] 1.026 Urine Protein Negative Urine Glucose (UA) Neg Urine Ketones Trace Urine Blood Negative Urine Nitrate Negative Urine Bilirubin Negative Urine Urobilinogen 0.2-1.0 Ur Leukocyte Esterase Large Urine RBC (Auto) 2 Urine Microscopic WBC 34 H 11/29/17 11/30/17 11/30/17 22:55 05:00 05:00 WBC 10.8 RBC 4.77 Hgb 14.6 Hct 42.7 MCV 89.4 MCH 30.6 MCHC 34.2 RDW 14.3 Plt Count 288 MPV 8.9 Neut % (Auto) 66.8 Lymph % (Auto) 21.4 [place] % (Auto) 9.8 Eos % (Auto) 1.4 Baso % (Auto) 0.6 Neut # (Auto) 7.2 H Lymph # (Auto) 2.3 [place] # (Auto) 1.1 H Eos # (Auto) 0.1 Baso # (Auto) 0.1 pO2 34 VBG pH 7.39 VBG pCO2 48 VBG HCO3 26.6 VBG Total CO2 30.6 H VBG O2 Sat (Calc) 78.6 H VBG Base Excess 3.3 H VBG Potassium 3.6 Glucose 83 Lactate 1.0 FiO2 21.0 Sodium 134.0 140 Potassium 4.0 Chloride 101.0 100 Carbon Dioxide 28 Anion Gap 16 BUN 12 Creatinine 1.0 Est GFR ( Amer) > 60 Est GFR (Non-Af Amer) > 60 Random Glucose 81 Calcium 9.2 Total Bilirubin 1.6 H AST 25 ALT 27 Alkaline Phosphatase 55 Total Protein 7.3 Albumin 3.8 Globulin 3.5 Albumin/Globulin Ratio 1.1 Venous Blood Potassium 3.6 Urine Color Urine Clarity Urine pH Ur Specific [place] Urine Protein Urine Glucose (UA) Urine Ketones Urine Blood Urine Nitrate Urine Bilirubin Urine Urobilinogen Ur Leukocyte Esterase Urine RBC (Auto) Urine Microscopic WBC Assessment & Plan - Assessment and Plan (Free Text) Plan: Patient seen and discussed with GI fellow. I agree with the note.
--- NOTE | 2017-11-30 11:10 | CP.PCM.PN ---
Subjective - Date & Time of Evaluation Date of Evaluation: 11/30/17 Time of Evaluation: 11:08 - Subjective Subjective: pt doing well pain improved, however continues to have some pain hd stable nad Objective - Vital Signs/Intake and Output Vital Signs (last 24 hours): Temp Pulse Resp BP Pulse Ox 97.8 F 64 20 112/74 100 11/30/17 08:00 11/30/17 08:00 11/30/17 08:00 11/30/17 08:00 11/30/17 08:00 - Medications Medications: Current Medications Metronidazole (Flagyl 500mg/100ml Ns) 100 mls @ 100 mls/hr IVPB Q8 ROSARIO PRN Reason: Protocol Last Admin: 11/30/17 00:51 Dose: 100 mls/hr Piperacillin Sod/Tazobactam (Sod 3.375 gm/ Sodium Chloride) 100 mls @ 100 mls/ hr IVPB Q6 ROSARIO PRN Reason: Protocol Last Admin: 11/30/17 09:50 Dose: 100 mls/hr Lactated Ringer's (Lactated Ringer's) 1,000 mls @ 150 mls/hr IV .Q6H40M [facility] Last Admin: 11/30/17 09:05 Dose: 150 mls/hr Ketorolac Tromethamine (Toradol) 15 mg IVP Q6 PRN PRN Reason: Pain, moderate (4-7) Morphine Sulfate (Morphine) 2 mg IVP Q6 PRN PRN Reason: Pain, moderate (4-7) - Labs Labs: 11/30/17 05:00 11/30/17 05:00 - Constitutional Appears: Non-toxic, No Acute Distress - Head Exam Head Exam: ATRAUMATIC, NORMOCEPHALIC - Eye Exam Eye Exam: EOMI, Normal appearance, PERRL Pupil Exam: NORMAL ACCOMODATION - ENT Exam ENT Exam: Mucous Membranes Moist, Normal Oropharynx - Neck Exam Neck Exam: Full ROM, Normal Inspection - Respiratory Exam Respiratory Exam: Clear to Ausculation Bilateral, NORMAL BREATHING PATTERN. absent: Rhonchi, Wheezes - Cardiovascular Exam Cardiovascular Exam: RRR, +S1, +S2 - GI/Abdominal Exam GI & Abdominal Exam: Soft, Tenderness, Normal Bowel Sounds. absent: Mass, Organomegaly - Extremities Exam Extremities Exam: Normal Capillary Refill. absent: Joint Swelling - Back Exam Back Exam: absent: CVA tenderness (L), CVA tenderness (R) - Neurological Exam Neurological Exam: Alert, Awake - Psychiatric Exam Psychiatric exam: Normal Affect, Normal Mood - Skin Skin Exam: Dry, Warm Assessment and Plan - Assessment and Plan (Free Text) Plan: 42 yo male with no significant PMH history came complaining of severe, persistent LLQ pain, non-radiating since last night accompanied with dysuria. Denied nausea or vomiting. Also denied fever or chills. 1. Sepsis 2. Complicated Diverticulitis with possible with Abscess Formation surgical consult with Dr Marks, no surgical intervention at this time GI consult appreciated, will need colonoscopy in 6-8 weeks and follow up in GI clinic blood culture x 2 keep NPO IV hydration with d5 1/2 NS + 20Kcl for maintenance fluids. Morphine 2mg IV q 4hrs prn continue Zosyn 3.375 gm IV q 6hrs will d/c flagyl monitor closely advance diet as tolerated with pain resolution
[2017-11-30] MEDS ORDERED: Potassium Ch 20mEq in D5-1/2NS 1,000 ML IV SCH (11:15)
[2017-12-01] MEDS: Piperacillin/Tazobact 3.375 GM in Sodium Chloride 0.9% 100 ML IVPB SCH ×2 (04:35→09:33)
[2017-12-01 06:59] LABS: BASO # 0.1 K/uL (0.0-0.2); BASO % 0.8 % (0.0-2.0); EOS # 0.3 K/uL (0.0-0.7); EOS % 4.5 % (0.0-4.0); HEMOGLOBIN 15.4 g/dL (12.0-18.0); LYMPH # 1.7 K/uL (1.0-4.3); LYMPH % 26.3 % (20.0-40.0); MEAN CELL VOLUME 88.6 fl (80.0-94.0); MEAN CORPUSCULAR HEMOGLOBIN 30.5 pg (27.0-31.0); MEAN CORPUSCULAR HGB CONC 34.4 g/dL (33.0-37.0); MEAN PLATELET VOLUME 8.7 fl (7.2-11.7); MONO # 0.8 K/uL (0.0-0.8); MONO % 12.1 % (0.0-10.0); NEUT # 3.8 K/uL (1.8-7.0); NEUT % 56.3 % (50.0-75.0); RBC 5.05 Mil/uL (4.40-5.90); RED CELL DISTRIBUTION WIDTH 14.3 % (11.5-14.5); WHITE BLOOD COUNT 6.7 K/uL (4.8-10.8)
[2017-12-01 07:18] LABS: ALB/GLOB RATIO 1.1 (1.0-2.1); ALBUMIN 3.8 g/dL (3.5-5.0); ALT/SGPT 20 U/L (21-72); AST/SGOT 26 U/L (17-59); BLOOD UREA NITROGEN 9 mg/dl (9-20); CALCIUM 9.3 mg/dL (8.4-10.2); GFR AFRICAN-AMERICAN > 60; GFR NON-AFRICAN AMERICAN > 60
[2017-12-01] MEDS ORDERED: Potassium Ch 20mEq in D5-1/2NS 1,000 ML IV SCH (07:19)
--- NOTE | 2017-12-01 07:21 | CP.PCM.PN ---
<Ruth Gonzáles - Last Filed: 12/01/17 07:19> Subjective - Date & Time of Evaluation Date of Evaluation: 12/01/17 Time of Evaluation: 07:20 - Subjective Subjective: General surgery progress note for Dr. Ovidio Gonzáles, PGY-2 Pt S & E at bedside at 0650 Pt reports abdominal pain improved, not currently hungry. Denies N & V, F & C or diarrhea. Ambulating. Voided 1100/12H. Chow removed yesterday. Objective - Vital Signs/Intake and Output Vital Signs (last 24 hours): Temp Pulse Resp BP Pulse Ox 97.6 F 64 18 112/73 98 12/01/17 04:29 12/01/17 04:29 12/01/17 04:29 12/01/17 04:29 12/01/17 04:29 Intake and Output: 12/01/17 12/01/17 06:59 18:59 Output Total 600 Balance -600 - Medications Medications: Current Medications Piperacillin Sod/Tazobactam (Sod 3.375 gm/ Sodium Chloride) 100 mls @ 100 mls/ hr IVPB Q6 [facility] PRN Reason: Protocol Last Admin: 12/01/17 04:35 Dose: 100 mls/hr Potassium Chloride/Dextrose/Sod Cl (Potassium Chl 20 Meq In D5-1/2ns) 1,000 mls @ 125 mls/hr IV .Q8H [facility] Stop: 12/01/17 11:14 Ketorolac Tromethamine (Toradol) 15 mg IVP Q6 PRN PRN Reason: Pain, moderate (4-7) Morphine Sulfate (Morphine) 2 mg IVP Q6 PRN PRN Reason: Pain, moderate (4-7) - Labs Labs: 12/01/17 06:23 12/01/17 06:23 - Constitutional Appears: Non-toxic, No Acute Distress - Head Exam Head Exam: ATRAUMATIC, NORMAL INSPECTION, NORMOCEPHALIC - Eye Exam Eye Exam: EOMI, Normal appearance - ENT Exam ENT Exam: Mucous Membranes Moist, Normal Exam - Neck Exam Neck Exam: Full ROM, Normal Inspection - Respiratory Exam Respiratory Exam: NORMAL BREATHING PATTERN - Cardiovascular Exam Cardiovascular Exam: REGULAR RHYTHM, +S1, +S2 - GI/Abdominal Exam GI & Abdominal Exam: Guarding (LLQ), Soft, Tenderness (LLQ). absent: Distended , Rigid, Mass, Rebound - Neurological Exam Neurological Exam: Alert, Awake, CN II-XII Intact, Oriented x3 - Psychiatric Exam Psychiatric exam: Normal Affect, Normal Mood - Skin Skin Exam: Dry, Intact, Normal Color, Warm Assessment and Plan - Assessment and Plan (Free Text) Assessment: 42M w/acute sigmoid diverticulitis w/small pericolonic abscess & cystitis Plan: Cont ABx - Zosyn, Flagyl Cont NPO Cont IVF: LR @150 Cont pain control- Tordal PRN urine Cx pending U/A w/microscopic WBC-34 Serial ab exams Ambulate OOBTC SCDs while in bed Colonoscopy at outpatient in 6-8 weeks as per GI Futher mgmt as per primary & GI teams DW attending Nivia, PGY-2 <Francheska Marks - Last Filed: 12/01/17 13:05> Objective - Vital Signs/Intake and Output Vital Signs (last 24 hours): Temp Pulse Resp BP Pulse Ox 97.8 F 64 20 120/80 98 12/01/17 08:00 12/01/17 09:00 12/01/17 08:00 12/01/17 08:00 12/01/17 08:00 Intake and Output: 12/01/17 12/01/17 06:59 18:59 Output Total 600 Balance -600 - Medications Medications: Current Medications Piperacillin Sod/Tazobactam (Sod 3.375 gm/ Sodium Chloride) 100 mls @ 100 mls/ hr IVPB Q6 ROSARIO PRN Reason: Protocol Last Admin: 12/01/17 09:33 Dose: 100 mls/hr Ketorolac Tromethamine (Toradol) 15 mg IVP Q6 PRN PRN Reason: Pain, moderate (4-7) Morphine Sulfate (Morphine) 2 mg IVP Q6 PRN PRN Reason: Pain, moderate (4-7) - Labs Labs: 12/01/17 06:23 12/01/17 06:23 Assessment and Plan - Assessment and Plan (Free Text) Plan: Agree with above. 1st attack of complicated sigmoid diverticulitis, with focal peritonitis. IV abx 3-5 days until WBC normalizes, clinical improvement and tendernes minimal. Consider repeat CT if no improvement within 72 hours and IR guided drainage of any found collections. Percutaneous drainage allows for elective surgery rather than emergency surgery and increase the likelihood of a successful 1-stage procedure, if ever needed. Lifestyle and diet modification to prevent further attacks. Increase cardiovascular exercise, low fat diet, bowel regimen consisting of fiber supplementation, stool softeners, increased daily water intake. Outpatient colonoscopy.
--- NOTE | 2017-12-01 15:14 | CP.PCM.DIS ---
Provider - Provider Date of Admission: 11/29/17 18:56 Attending physician: Diego Bush DO Time Spent in preparation of Discharge (in minutes): 45 Diagnosis - Discharge Diagnosis (1) Diverticulitis Status: Acute Hospital Course - Lab Results Lab Results: Micro Results 11/29/17 20:17 Urine,Clean Catch Urine Culture - Preliminary Gram Negative Frederick 11/29/17 20:15 Blood Blood Culture - Preliminary NO GROWTH AFTER 24 HOURS Most Recent Lab Values WBC 6.7 K/uL (4.8-10.8) 12/01/17 06:23 RBC 5.05 Mil/uL (4.40-5.90) 12/01/17 06:23 Hgb 15.4 g/dL (12.0-18.0) 12/01/17 06:23 Hct 44.8 % (35.0-51.0) 12/01/17 06:23 MCV 88.6 fl (80.0-94.0) 12/01/17 06:23 MCH 30.5 pg (27.0-31.0) 12/01/17 06:23 MCHC 34.4 g/dL (33.0-37.0) 12/01/17 06:23 RDW 14.3 % (11.5-14.5) 12/01/17 06:23 Plt Count 295 K/uL (130-400) 12/01/17 06:23 MPV 8.7 fl (7.2-11.7) 12/01/17 06:23 Neut % (Auto) 56.3 % (50.0-75.0) 12/01/17 06:23 Lymph % (Auto) 26.3 % (20.0-40.0) 12/01/17 06:23 [place] % (Auto) 12.1 % (0.0-10.0) H 12/01/17 06:23 Eos % (Auto) 4.5 % (0.0-4.0) H 12/01/17 06:23 Baso % (Auto) 0.8 % (0.0-2.0) 12/01/17 06:23 Neut # (Auto) 3.8 K/uL (1.8-7.0) 12/01/17 06:23 Lymph # (Auto) 1.7 K/uL (1.0-4.3) 12/01/17 06:23 [place] # (Auto) 0.8 K/uL (0.0-0.8) 12/01/17 06:23 Eos # (Auto) 0.3 K/uL (0.0-0.7) 12/01/17 06:23 Baso # (Auto) 0.1 K/uL (0.0-0.2) 12/01/17 06:23 pO2 34 mm/Hg (30-55) 11/29/17 22:55 VBG pH 7.39 (7.32-7.43) 11/29/17 22:55 VBG pCO2 48 mmHg (40-60) 11/29/17 22:55 VBG HCO3 26.6 mmol/L 11/29/17 22:55 VBG Total CO2 30.6 mmol/L (22-28) H 11/29/17 22:55 VBG O2 Sat (Calc) 78.6 % (40-65) H 11/29/17 22:55 VBG Base Excess 3.3 mmol/L (0.0-2.0) H 11/29/17 22:55 VBG Potassium 3.6 mmol/L (3.6-5.2) 11/29/17 22:55 Sodium 134.0 mmol/L (132-148) 11/29/17 22:55 Chloride 101.0 mmol/L (98-107) 11/29/17 22:55 Glucose 83 mg/dL (75-110) 11/29/17 22:55 Lactate 1.0 mmol/L (0.7-2.1) 11/29/17 22:55 FiO2 21.0 % 11/29/17 22:55 Sodium 139 mmol/l (132-148) 12/01/17 06:23 Potassium 4.6 MMOL/L (3.6-5.0) 12/01/17 06:23 Chloride 99 mmol/L (98-107) 12/01/17 06:23 Carbon Dioxide 30 mmol/L (22-30) 12/01/17 06:23 Anion Gap 15 (10-20) 12/01/17 06:23 BUN 9 mg/dl (9-20) 12/01/17 06:23 Creatinine 1.0 mg/dl (0.8-1.5) 12/01/17 06:23 Est GFR ( Amer) > 60 12/01/17 06:23 Est GFR (Non-Af Amer) > 60 12/01/17 06:23 Random Glucose 104 mg/dL (75-110) 12/01/17 06:23 Calcium 9.3 mg/dL (8.4-10.2) 12/01/17 06:23 Total Bilirubin 1.2 mg/dl (0.2-1.3) 12/01/17 06:23 AST 26 U/L (17-59) 12/01/17 06:23 ALT 20 U/L (21-72) L D 12/01/17 06:23 Alkaline Phosphatase 53 U/L (38-126) 12/01/17 06:23 Total Protein 7.3 G/DL (6.3-8.2) 12/01/17 06:23 Albumin 3.8 g/dL (3.5-5.0) 12/01/17 06:23 Globulin 3.4 gm/dL (2.2-3.9) 12/01/17 06:23 Albumin/Globulin Ratio 1.1 (1.0-2.1) 12/01/17 06:23 Venous Blood Potassium 3.6 mmol/L (3.6-5.2) 11/29/17 22:55 Urine Color Yellow (YELLOW) 11/29/17 20:17 Urine Clarity Slighty-cloudy (Clear) 11/29/17 20:17 Urine pH 7.0 (5.0-8.0) 11/29/17 20:17 Ur Specific [place] 1.026 (1.003-1.030) 11/29/17 20:17 Urine Protein Negative mg/dL (NEGATIVE) 11/29/17 20:17 Urine Glucose (UA) Neg mg/dL (Normal) 11/29/17 20:17 Urine Ketones Trace mg/dL (NEGATIVE) 11/29/17 20:17 Urine Blood Negative (NEGATIVE) 11/29/17 20:17 Urine Nitrate Negative (NEGATIVE) 11/29/17 20:17 Urine Bilirubin Negative (NEGATIVE) 11/29/17 20:17 Urine Urobilinogen 0.2-1.0 mg/dL (0.2-1.0) 11/29/17 20:17 Ur Leukocyte Esterase Large Archie/uL (Negative) 11/29/17 20:17 Urine RBC (Auto) 2 /hpf (0-3) 11/29/17 20:17 Urine Microscopic WBC 34 /hpf (0-5) H 11/29/17 20:17 - Hospital Course Hospital Course: 42 yo male with no significant PMH history came complaining of severe, persistent LLQ pain, non-radiating since last night accompanied with dysuria. Denied nausea or vomiting. Also denied fever or chills. 1. Sepsis 2. Complicated Diverticulitis with possible with Abscess Formation Patient improved, tolerated soft diet, normal WBC for 2 days, afebrile, minimal tenderness. Continue with PO abx. Per surgery no intervention at this time and per GI, PO abx and outpatient colonoscopy. Patient improved, to be discharged wtih CIPRO AND FLAGYL and follow up with PCP in one week. Will need colonoscopy in 6-8 weeks and follow up in GI clinic. Discharge Exam - Head Exam Additional comments: Vitals Reviewed GEN: WDWN, alert, cooperative HEENT: NCAT, PERRL, EOMI HEART: RRR, +S1S2, NO MRG LUNG: CTAB, NO WRR ABD: soft, minimal tenderness, ND, No HSM, No masses EXT: normal pedal pulses, normal capillary refill NEURO: awake, alert, no focal deficits SKIN: warm, dry PSYCH: normal mood, normal affect Discharge Plan - Discharge Medications Prescriptions: Ciprofloxacin HCl [Cipro] 500 mg PO Q12 #14 tablet Metronidazole [Flagyl] 500 mg PO Q8 #21 tablet - Follow Up Plan Condition: STABLE Disposition: HOME/ ROUTINE Instructions: Acute Abdominal Pain (DC), Acute Abdominal Pain (GEN) Referrals: [facility] [Provider Group]
[2017-12-01 16:29] VITALS: BP 114/80; PULSE 72; RESP 20; TEMP 97.7; O2SAT 98
== END 2017-12-01 16:25 | disposition home or self-care (01) | DRG 872 ==
LOC: H.ER 15:31 → H.ERHOLD 18:56 → H.TEL 23:20
PROVIDERS: ADMIT Internal Medicine; ATTEND Internal Medicine
DX: A41.9 Sepsis, unspecified organism (principal); K57.20 Diverticulitis of large intestine with perforation and abscess without bleeding; N30.90 Cystitis, unspecified without hematuria; Z16.12 Extended spectrum beta lactamase (ESBL) resistance

== ENCOUNTER 2018-02-08 18:29 | Inpatient (IN) | payer OTHER, SELFPAY ==
[2018-02-08] MEDS ORDERED: Sodium Chloride 0.9% 1,000 ML IV STA (20:23)
[2018-02-08 21:03] LABS: URINE BACTERIA RARE (<OCC); URINE BILIRUBIN NEGATIVE (NEGATIVE); URINE BLOOD LARGE (NEGATIVE); URINE CLARITY TURBID (Clear); URINE COLOR YELLOW (YELLOW); URINE GLUCOSE (UA) NEG (Normal); URINE LEUKOCYTE ESTERASE LARGE Leu/uL (Negative); URINE PROTEIN 100 mg/dL (NEGATIVE); URINE UROBILINOGEN 0.2-1.0 mg/dL (0.2-1.0); WBC CLUMPS MANY /hpf
[2018-02-08 21:20] LABS: BASO # 0.1 K/uL (0.0-0.2); BASO % 0.7 % (0.0-2.0); EOS # 0.4 K/uL (0.0-0.7); EOS % 3.6 % (0.0-4.0); HEMOGLOBIN 15.4 g/dL (12.0-18.0); LYMPH # 3.3 K/uL (1.0-4.3); LYMPH % 29.1 % (20.0-40.0); MEAN CORPUSCULAR HEMOGLOBIN 30.8 pg (27.0-31.0); MEAN CORPUSCULAR HGB CONC 33.9 g/dL (33.0-37.0); MEAN PLATELET VOLUME 8.6 fl (7.2-11.7); MONO % 8.8 % (0.0-10.0); NEUT # 6.5 K/uL (1.8-7.0); NEUT % 57.8 % (50.0-75.0); NRBC % 0.1 % (0.0-0.0); RBC 5.01 Mil/uL (4.40-5.90); RED CELL DISTRIBUTION WIDTH 14.1 % (11.5-14.5)
[2018-02-08 21:28] LABS: WHITE BLOOD COUNT 11.2 K/uL (4.8-10.8)
[2018-02-08 21:30] LABS: ALBUMIN 3.9 g/dL (3.5-5.0); ALT/SGPT 34 U/L (21-72); AST/SGOT 34 U/L (17-59); BLOOD UREA NITROGEN 17 mg/dl (9-20); CALCIUM 9.2 mg/dL (8.4-10.2); GFR NON-AFRICAN AMERICAN > 60
--- NOTE | 2018-02-08 21:58 | ED PDOC ---
HPI: Abdomen Time Seen by Provider: 02/08/18 19:23 Chief Complaint (Nursing): Abdominal Pain Chief Complaint (Provider): Abdominal Pain History Per: Patient History/Exam Limitations: no limitations Onset/Duration Of Symptoms: Days (Yesterday) Location Of Pain/Discomfort: LLQ Associated Symptoms: Urinary Symptoms. denies: Nausea, Vomiting, Diarrhea Additional Complaint(s): Jeffrey Larsen is a 42 year old male with no past medical history who presents to the emergency department complaining of foamy urine, dysuria and intermittent left testicular pain associated with left lower quadrant abdominal pain onset since yesterday. Patient denies having any fever, chills, nausea, vomiting, constipation or diarrhea. No further medical complaints. PMD: Ramiro Reese Past Medical History Reviewed: Historical Data, Nursing Documentation, Vital Signs Vital Signs: Last Vital Signs Temp 98.4 F 02/08/18 18:46 Pulse 67 02/08/18 19:35 Resp 22 02/08/18 19:35 BP 132/71 02/08/18 19:35 Pulse Ox 99 02/08/18 19:35 - Medical History PMH: No Chronic Diseases Denies: HIV, Chronic Kidney Disease - Surgical History Surgical History: Appendectomy - Family History Family History: States: Diabetes - Social History Current smoker - smoking cessation education provided: No (Never smoked) Alcohol: None Drugs: Denies - Home Medications Home Medications: Ambulatory Orders Medication Instructions Recorded Ciprofloxacin HCl [Cipro] 500 mg PO Q12 #14 tablet 12/01/17 Metronidazole [Flagyl] 500 mg PO Q8 #21 tablet 12/01/17 Nitrofurantoin Macrocrystals 100 mg PO Q12 #14 cap 12/02/17 [Macrobid] - Allergies Allergies/Adverse Reactions: Allergies Allergy/AdvReac Type Severity Reaction Status Date / Time No Known Allergies Allergy Verified 11/29/17 15:35 Review of Systems ROS Statement: Except As Marked, All Systems Reviewed And Found Negative Constitutional: Negative for: Fever, Chills Gastrointestinal: Positive for: Abdominal Pain (LLQ ). Negative for: Nausea, Vomiting, Diarrhea, Constipation Genitourinary Male: Positive for: Dysuria, Scrotal Pain (intermittent left testicular pain) Physical Exam - Reviewed Nursing Documentation Reviewed: Yes Vital Signs Reviewed: Yes - Physical Exam Appears: Positive for: Well, No Acute Distress Head Exam: Positive for: ATRAUMATIC, NORMOCEPHALIC Skin: Positive for: Normal Color, Warm, Dry Eye Exam: Positive for: Normal appearance, EOMI, PERRL Neck: Positive for: Normal, Painless ROM, Supple Cardiovascular/Chest: Positive for: Regular Rate, Rhythm. Negative for: Murmur Respiratory: Positive for: Normal Breath Sounds. Negative for: Respiratory Distress Gastrointestinal/Abdominal: Positive for: Tenderness (LLQ ). Negative for: Soft, Guarding, Rebound Male Genital Exam: Positive for: normal genitalia, other (corn popper present Thea ) Back: Positive for: Normal Inspection. Negative for: L CVA Tenderness, R CVA Tenderness Extremity: Positive for: Normal ROM (upper and lower extremities). Negative for: Deformity, Swelling Neurologic/Psych: Positive for: Alert, Oriented, Gait (steady). Negative for: Motor/Sensory Deficits - Laboratory Results Result Diagrams: 02/08/18 21:15 02/08/18 21:15 - ECG O2 Sat by Pulse Oximetry: 99 (RA) Pulse Ox Interpretation: Normal - CT Scan/US Testicular ultrasound Other Rad Studies (CT/US): Read By Radiologist (1. Bilateral epididymal head cysts. 2. Bilateral hydroceles. ) - Physician Consult Information Time Consulting Physican Contacted: 00:14 Physician Contacted: Francheska Marks Outcome Of Conversation: Recommends Aydin and Aristeo, admit to his service. Medical Decision Making Medical Decision Making: Time: 19:23 Initial Impression: UTI, Renal Calculi Initial Plan: --CT abdomen and pelvis --CMP --ED Urine dipstick (POC) --CBC with differential --Partial thromboplastin time [COAG] ROUTINE --Prothrombin time [COAG] routine --Morphine 2 mg IV --Sodium Chloride 0.9 % 1,000 ml IV 1,000 mls/hr --Rocephin 1 gm Sodium chloride 0.9% % 100 ml IV --Urinalysis --Testes duplex complete US Scribe Attestation: Documented by Aidan Singh, acting as a scribe for Shauna Malhotra MD. Provider Scribe Attestation: All medical record entries made by the Scribe were at my direction and personally dictated by me. I have reviewed the chart and agree that the record accurately reflects my personal performance of the history, physical exam, medical decision making, and the department course for this patient. I have also personally directed, reviewed, and agree with the discharge instructions and disposition. Disposition - Clinical Impression Clinical Impression: Colovesical fistula, Cystitis, Acute diverticulitis - Patient ED Disposition Is Patient to be Admitted: Yes - Disposition Disposition Time: 00:15 Condition: STABLE Forms: [facility] (Indonesian) - Pt Status Changed To: Hospital Disposition Of: Inpatient - Admit Certification Admit to Inpatient:: After my assessment, the patient will require hospital ization for at least two midnights. This is because of the severity of symptoms shown, intensity of services needed, and/or the medical risk in this patient being treated as an outpatient. - POA Present On Arrival: None
[2018-02-08 22:00] LABS: INR 1.2; PROTHROMBIN TIME 13.8 Seconds (9.8-13.1)
[2018-02-08] MEDS ORDERED: cefTRIAXone (Rocephin) 1 gm Inj ONE (22:10)
[2018-02-09] MEDS ORDERED: Piperacillin/Tazobact 4.5 GM in Sodium Chloride 0.9% 100 ML IVPB STA (00:09)
[2018-02-09] MEDS ORDERED: metroNIDAZOLE 500mg/100ml NS 100 ML IV STA (00:12)
[2018-02-09] MEDS ORDERED: Sodium Chloride 0.9% 1,000 ML IV STA (00:13)
--- NOTE | 2018-02-09 00:34 | CP.PCM.HP ---
<Jeronimo Carranza - Last Filed: 02/09/18 08:56> History of Present Illness - History of Present Illness History of Present Illness: General Surgery H&P for Dr. Marks Reason for consult: abdominal pain, suspected diverticulitis, suspected colo- vesicular fistula 42 M with PMH of Diverticulosis and Diverticulitis presents to [facility] for complaint of LLQ abdominal pain. Patient was seen and evaluated in the ED. Patient states that pain began Sunday and over 2 days had gotten progressively worse. During same time, he has been experiencing burning with urinating and noticed particles in his urine. Patient was admitted in November for diverticulitis and colitis where he was treated conservatively with antibiotics. Patient was instructed to follow up as outpatient with GI and surgery. Patient had followed up with GI and was schedule to get a colonoscopy in a few weeks. Patient reports pain is similar to last episode. He admits to associated constipation and only small infrequent BMs. He rates pain as moderate to severe. He describes pain as constant and sharp located LLQ with radiation to suprapubic region. Denies any aggravating or alleviating factors. Denies fever/chills, chest pain, SOB, palpitations, nausea/vomiting, diarrhea, incontinence. PMD: Dr. Ramiro Reese PMH: as above MEds: Denies ALL: NKDA PSH: appendectomy FH: non-contributory Social: denies tobacco/EtOH/illicit drugs use Present on Admission - Present on Admission Any Indicators Present on Admission: No Review of Systems - Review of Systems All systems: reviewed and no additional remarkable complaints except (as per HPI) Past Patient History - Infectious Disease Hx of Infectious Diseases: None - Tetanus Immunizations Tetanus Immunization: Unknown - Past Medical History & Family History Past Medical History?: No - Past Social History Alcohol: None Drugs: Denies - CARDIAC Hx Cardiac Disorders: No - PULMONARY Hx Respiratory Disorders: No - NEUROLOGICAL Hx Neurological Disorder: No - HEENT Hx HEENT Problems: No - RENAL Hx Chronic Kidney Disease: No - ENDOCRINE/METABOLIC Hx Endocrine Disorders: No - HEMATOLOGICAL/ONCOLOGICAL Hx Human Immunodeficiency Virus (HIV): No - INTEGUMENTARY Hx Dermatological Problems: No - MUSCULOSKELETAL/RHEUMATOLOGICAL Hx Musculoskeletal Disorders: No Hx Falls: No - GASTROINTESTINAL Hx Gastrointestinal Disorders: No - GENITOURINARY/GYNECOLOGICAL Hx Genitourinary Disorders: No - PSYCHIATRIC Hx Psychophysiologic Disorder: No Hx Substance Use: No - SURGICAL HISTORY Hx Appendectomy: Yes - ANESTHESIA Hx Anesthesia: Yes Hx Anesthesia Reactions: No Meds Allergies/Adverse Reactions: Allergies Allergy/AdvReac Type Severity Reaction Status Date / Time No Known Allergies Allergy Verified 11/29/17 15:35 Physical Exam - Constitutional Appears: Non-toxic, No Acute Distress - Head Exam Head Exam: ATRAUMATIC, NORMOCEPHALIC - Eye Exam Eye Exam: EOMI, Normal appearance Pupil Exam: PERRL - ENT Exam ENT Exam: Mucous Membranes Moist - Neck Exam Neck exam: Positive for: Normal Inspection - Respiratory Exam Respiratory Exam: NORMAL BREATHING PATTERN - Cardiovascular Exam Cardiovascular Exam: REGULAR RHYTHM - GI/Abdominal Exam GI & Abdominal Exam: Normal Bowel Sounds, Soft, Tenderness (LLQ/Suprapubic). absent: Distended, Firm, Guarding, Hernia, Rebound, Rigid - Rectal Exam Rectal Exam: Deferred - Extremities Exam Extremities exam: Positive for: normal capillary refill, pedal pulses present. Negative for: calf tenderness - Back Exam Back exam: absent: CVA tenderness (L), CVA tenderness (R) - Neurological Exam Neurological exam: Alert, CN II-XII Intact, Oriented x3 - Psychiatric Exam Psychiatric exam: Normal Affect, Normal Mood - Skin Skin Exam: Dry, Intact, Normal Color, Warm Results - Vital Signs Recent Vital Signs: Last Vital Signs Temp 98.4 F 02/08/18 18:46 Pulse 67 02/08/18 19:35 Resp 22 02/08/18 19:35 BP 132/71 02/08/18 19:35 Pulse Ox 99 02/09/18 00:15 - Labs Result Diagrams: 02/08/18 21:15 02/08/18 21:15 Labs: Laboratory Results - last 24 hr 02/08/18 02/08/18 02/08/18 20:48 21:15 21:15 WBC 11.2 H D RBC 5.01 Hgb 15.4 Hct 45.6 MCV 91.0 D MCH 30.8 MCHC 33.9 RDW 14.1 Plt Count 239 MPV 8.6 Neut % (Auto) 57.8 Lymph % (Auto) 29.1 [place] % (Auto) 8.8 Eos % (Auto) 3.6 Baso % (Auto) 0.7 Neut # (Auto) 6.5 Lymph # (Auto) 3.3 [place] # (Auto) 1.0 H Eos # (Auto) 0.4 Baso # (Auto) 0.1 PT INR APTT Sodium 142 Potassium 4.2 Chloride 106 Carbon Dioxide 29 Anion Gap 11 BUN 17 Creatinine 1.0 Est GFR ( Amer) > 60 Est GFR (Non-Af Amer) > 60 Random Glucose 84 Calcium 9.2 Total Bilirubin 0.6 AST 34 ALT 34 Alkaline Phosphatase 74 Total Protein 7.8 Albumin 3.9 Globulin 3.9 Albumin/Globulin Ratio 1.0 Urine Color Yellow Urine Clarity Turbid Urine pH 6.0 Ur Specific [place] 1.018 Urine Protein 100 Urine Glucose (UA) Neg Urine Ketones Negative Urine Blood Large Urine Nitrate Negative Urine Bilirubin Negative Urine Urobilinogen 0.2-1.0 Ur Leukocyte Esterase Large Urine RBC (Auto) 394 H Urine WBC Clumps (Auto) Many H Urine Microscopic WBC 1654 H Urine Bacteria Rare 02/08/18 21:46 WBC RBC Hgb Hct MCV MCH MCHC RDW Plt Count MPV Neut % (Auto) Lymph % (Auto) [place] % (Auto) Eos % (Auto) Baso % (Auto) Neut # (Auto) Lymph # (Auto) [place] # (Auto) Eos # (Auto) Baso # (Auto) PT 13.8 H INR 1.2 APTT 36.0 Sodium Potassium Chloride Carbon Dioxide Anion Gap BUN Creatinine Est GFR ( Amer) Est GFR (Non-Af Amer) Random Glucose Calcium Total Bilirubin AST ALT Alkaline Phosphatase Total Protein Albumin Globulin Albumin/Globulin Ratio Urine Color Urine Clarity Urine pH Ur Specific [place] Urine Protein Urine Glucose (UA) Urine Ketones Urine Blood Urine Nitrate Urine Bilirubin Urine Urobilinogen Ur Leukocyte Esterase Urine RBC (Auto) Urine WBC Clumps (Auto) Urine Microscopic WBC Urine Bacteria Assessment & Plan - Assessment and Plan (Free Text) Assessment: 42 M with PMH of diverticulosis/diverticulitis who presents with LLQ abdominal pain and suspected colovesicular fistula Plan: -NPO -IV fluids -IV abx -Analgesics PRN -Urology consult, help appreciated -Further recommendations as per Dr. Kendrick Carranza PGY2 - Date & Time Date: 02/09/18 Time: 00:51 <Francheska Marks - Last Filed: 02/09/18 17:20> Results - Vital Signs Recent Vital Signs: Last Vital Signs Temp 98.2 F 09/29/18 15:50 Pulse 72 02/09/18 15:50 Resp 18 02/09/18 15:50 BP 117/68 02/09/18 15:50 Pulse Ox 98 02/09/18 15:50 - Labs Result Diagrams: 02/09/18 08:50 02/09/18 08:50 Labs: Laboratory Results - last 24 hr 02/08/18 02/08/18 02/08/18 20:48 21:15 21:15 WBC 11.2 H D RBC 5.01 Hgb 15.4 Hct 45.6 MCV 91.0 D MCH 30.8 MCHC 33.9 RDW 14.1 Plt Count 239 MPV 8.6 Neut % (Auto) 57.8 Lymph % (Auto) 29.1 [place] % (Auto) 8.8 Eos % (Auto) 3.6 Baso % (Auto) 0.7 Neut # (Auto) 6.5 Lymph # (Auto) 3.3 [place] # (Auto) 1.0 H Eos # (Auto) 0.4 Baso # (Auto) 0.1 PT INR APTT Sodium 142 Potassium 4.2 Chloride 106 Carbon Dioxide 29 Anion Gap 11 BUN 17 Creatinine 1.0 Est GFR ( Amer) > 60 Est GFR (Non-Af Amer) > 60 Random Glucose 84 Calcium 9.2 Phosphorus Magnesium Total Bilirubin 0.6 AST 34 ALT 34 Alkaline Phosphatase 74 Total Protein 7.8 Albumin 3.9 Globulin 3.9 Albumin/Globulin Ratio 1.0 Urine Color Yellow Urine Clarity Turbid Urine pH 6.0 Ur Specific [place] 1.018 Urine Protein 100 Urine Glucose (UA) Neg Urine Ketones Negative Urine Blood Large Urine Nitrate Negative Urine Bilirubin Negative Urine Urobilinogen 0.2-1.0 Ur Leukocyte Esterase Large Urine RBC (Auto) 394 H Urine WBC Clumps (Auto) Many H Urine Microscopic WBC 1654 H Urine Bacteria Rare 02/08/18 02/09/18 02/09/18 21:46 08:50 08:50 WBC 7.1 RBC 4.96 Hgb 15.3 Hct 44.9 MCV 90.6 MCH 30.9 MCHC 34.2 RDW 14.3 Plt Count 232 MPV 8.3 Neut % (Auto) 55.6 Lymph % (Auto) 30.3 [place] % (Auto) 8.9 Eos % (Auto) 4.6 H Baso % (Auto) 0.6 Neut # (Auto) 3.9 Lymph # (Auto) 2.1 [place] # (Auto) 0.6 Eos # (Auto) 0.3 Baso # (Auto) 0.0 PT 13.8 H INR 1.2 APTT 36.0 Sodium 141 Potassium 4.3 Chloride 104 Carbon Dioxide 31 H Anion Gap 10 BUN 13 Creatinine 1.0 Est GFR ( Amer) > 60 Est GFR (Non-Af Amer) > 60 Random Glucose 78 Calcium 8.8 Phosphorus 3.0 Magnesium 1.9 Total Bilirubin 1.0 AST 29 ALT 26 Alkaline Phosphatase 54 Total Protein 7.1 Albumin 3.5 Globulin 3.6 Albumin/Globulin Ratio 1.0 Urine Color Urine Clarity Urine pH Ur Specific [place] Urine Protein Urine Glucose (UA) Urine Ketones Urine Blood Urine Nitrate Urine Bilirubin Urine Urobilinogen Ur Leukocyte Esterase Urine RBC (Auto) Urine WBC Clumps (Auto) Urine Microscopic WBC Urine Bacteria Assessment & Plan - Assessment and Plan (Free Text) Plan: I personally saw and examined the patient with the resident staff and agree with the above assessment and plan. I personally reviewed the available diagnostic images and imaging reports. 42 Male recurrent complicated sigmoid diverticulitis colovesicular fistula without peritonitis. Continue as above. Repeat CTAP with PO and IV contrast in am. Operative planning following urology recs, ideally in elective setting after acute inflammation subsides and colonoscopy.
[2018-02-09] MEDS ORDERED: HYDROmorphone 0.5 mg/0.5 ml ISec IVP PRN (01:06)
[2018-02-09] MEDS: Lactated Ringer's 1,000 ML IV SCH ×4 (01:15→20:26)
[2018-02-09] MEDS: Piperacillin/Tazobact 3.375 GM in Sodium Chloride 0.9% 100 ML IVPB SCH ×4 (03:57→21:11)
[2018-02-09] MEDS: metroNIDAZOLE 500mg/100ml NS 100 ML IVPB SCH ×2 (09:13→16:31)
--- NOTE | 2018-02-09 09:33 | US ---
Date of service: 02/08/2018 HISTORY: L testicular pain TECHNIQUE: Realtime sonography through the scrotum with color and doppler flow. COMPARISON: None Available. FINDINGS: RIGHT TESTICLE: Measures 4.9 x 2.0 x 3.3 cm. Normal echotexture and flow. RIGHT EPIDIDYMIS: Epididymal head measures 1.4 x 1.3 x 1.3 cm. Grossly unremarkable appearance with normal flow. 0.4 x 0.3 x 0.4 cm cyst/spermatocele. LEFT TESTICLE: Measures 4.4 x 2.0 x 3.4 cm. Normal echotexture and flow. LEFT EPIDIDYMIS: Epididymal head measures 1.2 x 1.0 x 1.8 cm. Grossly unremarkable appearance with normal flow. 0.5 x 0.3 x 0.6 cm cyst/spermatocele. HYDROCELE: Small bilateral hydroceles. VARICOCELE: None. OTHER FINDINGS: None. IMPRESSION: No evidence of testicular torsion or epididymo-orchitis. Small bilateral hydroceles. Subcentimeter bilateral epididymal head cysts/spermatoceles.
--- NOTE | 2018-02-09 09:50 | CT ---
Date of service: 02/08/2018 PROCEDURE: CT Abdomen and Pelvis without intravenous contrast HISTORY: LLQ pain, dysuria, hematuria, L testicular pain COMPARISON: CT scan of the abdomen and pelvis dated 11/29/2017 TECHNIQUE: Contiguous images were obtained from the domes of the diaphragms to the upper thighs without the administration of intravenous contrast. Oral contrast was not administered. Radiation dose: Total exam DLP = 345.4 mGy-cm. This CT exam was performed using one or more of the following dose reduction techniques: Automated exposure control, adjustment of the mA and/or kV according to patient size, and/or use of iterative reconstruction technique. FINDINGS: LOWER THORAX: Unremarkable. LIVER: Unremarkable. No gross lesion or ductal dilatation. GALLBLADDER AND BILE DUCTS: Unremarkable. PANCREAS: Unremarkable. No gross lesion or ductal dilatation. SPLEEN: Unremarkable. ADRENALS: Unremarkable. No mass. KIDNEYS AND URETERS: 4 mm nonobstructive right upper pole calculus. Punctate left lower pole nonobstructive calculus. No hydronephrosis. No solid mass. VASCULATURE: Unremarkable. No aortic aneurysm. BOWEL: Sigmoid diverticulosis with severe wall thickening and pericolic inflammatory change. There appears to be a fistulous connection coursing inferiorly from the mid sigmoid to the bladder dome. No obstruction. No gross mural thickening. APPENDIX: No findings to suggest acute appendicitis. PERITONEUM: Unremarkable. No free fluid. No free air. LYMPH NODES: Unremarkable. No enlarged lymph nodes. BLADDER: Marked thickening of the left lateral and superior bladder wall with foci of air superiorly. REPRODUCTIVE: Unremarkable. BONES: No acute fracture. OTHER FINDINGS: None. IMPRESSION: Acute sigmoid diverticulitis with fistulous tract to the bladder dome consistent with colovesicular fistula. Bilateral nonobstructive nephrolithiasis.
[2018-02-09 09:58] LABS: BASO % 0.6 % (0.0-2.0); EOS # 0.3 K/uL (0.0-0.7); EOS % 4.6 % (0.0-4.0); HEMOGLOBIN 15.3 g/dL (12.0-18.0); LYMPH # 2.1 K/uL (1.0-4.3); LYMPH % 30.3 % (20.0-40.0); MEAN CELL VOLUME 90.6 fl (80.0-94.0); MEAN CORPUSCULAR HEMOGLOBIN 30.9 pg (27.0-31.0); MEAN CORPUSCULAR HGB CONC 34.2 g/dL (33.0-37.0); MEAN PLATELET VOLUME 8.3 fl (7.2-11.7); MONO # 0.6 K/uL (0.0-0.8); MONO % 8.9 % (0.0-10.0); NEUT # 3.9 K/uL (1.8-7.0); NEUT % 55.6 % (50.0-75.0); RBC 4.96 Mil/uL (4.40-5.90); RED CELL DISTRIBUTION WIDTH 14.3 % (11.5-14.5); WHITE BLOOD COUNT 7.1 K/uL (4.8-10.8)
[2018-02-09 10:21] LABS: ALBUMIN 3.5 g/dL (3.5-5.0); ALT/SGPT 26 U/L (21-72); AST/SGOT 29 U/L (17-59); BLOOD UREA NITROGEN 13 mg/dl (9-20); CALCIUM 8.8 mg/dL (8.4-10.2); GFR NON-AFRICAN AMERICAN > 60
--- NOTE | 2018-02-09 10:40 | RAD ---
Date of service: 02/09/2018 HISTORY: Admission COMPARISON: No prior. FINDINGS: LUNGS: No active pulmonary disease. PLEURA: No significant pleural effusion identified, no pneumothorax apparent. CARDIOVASCULAR: Normal. OSSEOUS STRUCTURES: No significant abnormalities. VISUALIZED UPPER ABDOMEN: Normal. OTHER FINDINGS: None. IMPRESSION: No active disease.
--- NOTE | 2018-02-09 17:44 | CP.PCM.PN ---
Subjective - Date & Time of Evaluation Date of Evaluation: 02/09/18 Time of Evaluation: 17:40 - Subjective Subjective: 42 year old male with clinical Diverticulitis, ct consistant with colo vesicle fistula. suggest consider GS consult for diverting colostomy. treat UTI w sensitive antibiotics. Pt then should have Colonoscopy,and cysto BX and cystogram to confirm bningn nature of fistula. Monika Objective - Vital Signs/Intake and Output Vital Signs (last 24 hours): Temp Pulse Resp BP Pulse Ox 98.2 F 72 18 117/68 98 02/09/18 15:50 02/09/18 15:50 02/09/18 15:50 02/09/18 15:50 02/09/18 15:50 - Medications Medications: Current Medications Metronidazole (Flagyl 500mg/100ml Ns) 100 mls @ 100 mls/hr IVPB Q8 ROSARIO; Protoc ol Last Admin: 02/09/18 16:31 Dose: 100 mls/hr Piperacillin Sod/Tazobactam (Sod 3.375 gm/ Sodium Chloride) 100 mls @ 100 mls/hr IVPB Q6 ROSARIO; Protocol Last Admin: 02/09/18 16:32 Dose: 100 mls/hr Lactated Ringer's (Lactated Ringer's) 1,000 mls @ 125 mls/hr IV .Q8H ROSARIO Last Admin: 02/09/18 12:09 Dose: 125 mls/hr Morphine Sulfate (Morphine) 2 mg IVP Q4 PRN PRN Reason: Pain, moderate (4-7) Ondansetron HCl (Zofran Inj) 4 mg IVP Q6 PRN PRN Reason: Nausea/Vomiting - Labs Labs: 02/09/18 08:50 02/09/18 08:50 PT 13.8 Seconds (9.8-13.1) H 02/08/18 21:46 INR 1.2 02/08/18 21:46 APTT 36.0 Seconds (25.6-37.1) 02/08/18 21:46
[2018-02-10] MEDS: metroNIDAZOLE 500mg/100ml NS 100 ML IVPB SCH ×3 (01:09→17:43)
[2018-02-10] MEDS: Piperacillin/Tazobact 3.375 GM in Sodium Chloride 0.9% 100 ML IVPB SCH ×4 (03:47→21:39)
[2018-02-10] MEDS: Lactated Ringer's 1,000 ML IV SCH ×3 (03:51→20:27)
[2018-02-10] MEDS ORDERED: Iohexol 240 (50 ml) PO ONE (05:37)
--- NOTE | 2018-02-10 10:05 | CP.PCM.PN ---
Subjective - Date & Time of Evaluation Date of Evaluation: 02/10/18 Time of Evaluation: 07:15 - Subjective Subjective: General Surgery Pt seen and examined. Afebrile, no acute events overnight. Awaiting CT with contrast. Pain improved since yesterday. No new complaints. Objective - Vital Signs/Intake and Output Vital Signs (last 24 hours): Temp Pulse Resp BP Pulse Ox 97.8 F 72 18 115/78 97 02/10/18 08:44 02/10/18 08:44 02/10/18 08:44 02/10/18 08:44 02/10/18 08:44 - Medications Medications: Current Medications Metronidazole (Flagyl 500mg/100ml Ns) 100 mls @ 100 mls/hr IVPB Q8 [facility]; Protocol Last Admin: 02/10/18 08:46 Dose: 100 mls/hr Piperacillin Sod/Tazobactam (Sod 3.375 gm/ Sodium Chloride) 100 mls @ 100 ml s/hr IVPB Q6 [facility]RAIO; Protocol Last Admin: 02/10/18 03:47 Dose: 100 mls/hr Lactated Ringer's (Lactated Ringer's) 1,000 mls @ 125 mls/hr IV .Q8H [facility] Last Admin: 02/10/18 03:51 Dose: Not Given Morphine Sulfate (Morphine) 2 mg IVP Q4 PRN PRN Reason: Pain, moderate (4-7) Ondansetron HCl (Zofran Inj) 4 mg IVP Q6 PRN PRN Reason: Nausea/Vomiting - Labs Labs: 02/09/18 08:50 02/09/18 08:50 PT 13.8 Seconds (9.8-13.1) H 02/08/18 21:46 INR 1.2 02/08/18 21:46 APTT 36.0 Seconds (25.6-37.1) 02/08/18 21:46 - Constitutional Appears: Non-toxic, No Acute Distress - Head Exam Head Exam: ATRAUMATIC, NORMOCEPHALIC - Eye Exam Eye Exam: EOMI. absent: Scleral icterus - Respiratory Exam Respiratory Exam: Respiratory Distress. absent: NORMAL BREATHING PATTERN - Cardiovascular Exam Cardiovascular Exam: RRR, +S1, +S2 - GI/Abdominal Exam GI & Abdominal Exam: Soft, Tenderness (in LLQ and suprapubic area). 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 Kendrick Ge PGY4
[2018-02-10] MEDS ORDERED: Sodium Chloride 0.9% 50 ML IV ONE (15:38)
[2018-02-10] MEDS ORDERED: Iohexol 300 100 ML IJ ONE (15:38)
--- NOTE | 2018-02-10 16:28 | CT ---
Date of service: 02/10/2018 PROCEDURE: CT Abdomen and Pelvis with contrast HISTORY: possible colovesicular fistula COMPARISON: CT scan of the abdomen and pelvis dated 02/08/2018. TECHNIQUE: Contrast dose: 95 mL Omnipaque 300 Radiation dose: Total exam DLP = 311.9 mGy-cm. This CT exam was performed using one or more of the following dose reduction techniques: Automated exposure control, adjustment of the mA and/or kV according to patient size, and/or use of iterative reconstruction technique. FINDINGS: LOWER THORAX: Unremarkable. LIVER: Hepatic steatosis. No gross lesion or ductal dilatation. GALLBLADDER AND BILE DUCTS: Unremarkable. PANCREAS: Unremarkable. No gross lesion or ductal dilatation. SPLEEN: Unremarkable. ADRENALS: Unremarkable. No mass. KIDNEYS AND URETERS: 4 mm nonobstructive right upper pole calculus. Punctate left lower pole nonobstructive calculus. No hydronephrosis. No solid mass. VASCULATURE: Unremarkable. No aortic aneurysm. BOWEL: Redemonstration of sigmoid diverticulitis with fistulous connection coursing inferiorly to the bladder dome as well as to the right laterally to a more distal portion of sigmoid. Oral contrast has not yet progressed past the proximal descending colon at the time of the examination. No obstruction. No gross mural thickening. APPENDIX: No findings to suggest acute appendicitis. PERITONEUM: Unremarkable. No free fluid. No free air. LYMPH NODES: Unremarkable. No enlarged lymph nodes. BLADDER: Marked thickening of the left lateral and superior bladder wall with foci of air superiorly. REPRODUCTIVE: Unremarkable. BONES: No acute fracture. OTHER FINDINGS: None. IMPRESSION: Oral contrast has not yet progressed passed the proximal descending colon at the time of the examination. Redemonstration of sigmoid diverticulitis with colovesicular fistula and sigmoid sigmoid fistula. Direct visualization is recommended after resolution of the acute presentation. No significant interval change.
[2018-02-11] MEDS: metroNIDAZOLE 500mg/100ml NS 100 ML IVPB SCH ×3 (01:52→18:11)
[2018-02-11] MEDS: Lactated Ringer's 1,000 ML IV SCH ×3 (03:58→16:30)
[2018-02-11] MEDS: Piperacillin/Tazobact 3.375 GM in Sodium Chloride 0.9% 100 ML IVPB SCH ×4 (04:49→22:05)
[2018-02-11 06:12] LABS: BASO % 0.4 % (0.0-2.0); EOS # 0.3 K/uL (0.0-0.7); EOS % 2.4 % (0.0-4.0); HEMOGLOBIN 15.9 g/dL (12.0-18.0); LYMPH # 2.2 K/uL (1.0-4.3); LYMPH % 20.1 % (20.0-40.0); MEAN CELL VOLUME 90.4 fl (80.0-94.0); MEAN CORPUSCULAR HEMOGLOBIN 30.5 pg (27.0-31.0); MEAN CORPUSCULAR HGB CONC 33.7 g/dL (33.0-37.0); MEAN PLATELET VOLUME 8.6 fl (7.2-11.7); MONO # 0.8 K/uL (0.0-0.8); MONO % 7.4 % (0.0-10.0); NEUT # 7.5 K/uL (1.8-7.0); NEUT % 69.7 % (50.0-75.0); RBC 5.22 Mil/uL (4.40-5.90); WHITE BLOOD COUNT 10.8 K/uL (4.8-10.8)
[2018-02-11 06:27] LABS: ALB/GLOB RATIO 1.1 (1.0-2.1); ALBUMIN 3.8 g/dL (3.5-5.0); ALT/SGPT 39 U/L (21-72); AST/SGOT 26 U/L (17-59); BLOOD UREA NITROGEN 14 mg/dl (9-20); CALCIUM 8.9 mg/dL (8.4-10.2); GFR NON-AFRICAN AMERICAN > 60
--- NOTE | 2018-02-11 08:31 | CON ---
DATE: 02/09/2018 CHIEF COMPLAINT: Left lower quadrant pain. HISTORY OF PRESENT ILLNESS: The patient was admitted to the [facility] with left lower quadrant pain. He was started on IV antibiotics. Workup was undertaken, and he had a CAT scan of the abdomen and pelvis, which shows free air in the bladder and thickening of the left wall of the bladder, consistent with vesicocolic fistula. The patient has improved since being placed on antibiotics, has less pain and less discomfort. He gives no history of having vesicocolic fistula before he does say that he passes air when he urinates, and there has been particular matter in his urine. PHYSICAL EXAMINATION: VITAL SIGNS: Within normal limits. The patient is afebrile. HEAD, EARS, EYES, NOSE, AND THROAT: Within normal limits. NECK: Supple. There are no bruits, nodes, or masses. CHEST: Clear bilaterally. There are no rales or rhonchi. HEART: Normal sinus rhythm. ABDOMEN: Soft. There is slight left lower quadrant tenderness. No guarding or rebound. RECTAL: Shows a 2+ non-nodular prostate. Testicles, epididymis, and cords are normal. EXTREMITIES: Normal. VASCULAR: Normal. DIAGNOSTIC DATA: I have also reviewed the CAT scan films and reports and urinalysis, which shows 394 rbc's and 1354 wbc's. 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 I suggest the patient should be treated with aggressive IV antibiotic therapy. Once the infection is controlled, the patient should have an elective cystoscopy and colonoscopy to rule out malignant etiology of the patient's vesicocolic fistula. Once the fistula is further documented, the patient would need diverting colostomy, and after the appropriate delay, a bowel resection and closure of vesicocolic fistula. Mark Frank MD
--- NOTE | 2018-02-11 09:45 | CP.PCM.PN ---
<China Ron - Last Filed: 02/11/18 09:41> Subjective - Date & Time of Evaluation Date of Evaluation: 02/11/18 Time of Evaluation: 07:00 - Subjective Subjective: Surgery: Dr. Marks Pt seen and examined. No acute overnight events. States he feels better this morning and his abdominal pain is improved. He denies any nausea/vomiting, fevers or chills overnight. Continues to have pneumaturia. Admits to having regular soft BMs. Denies other complaints at this time. Objective - Vital Signs/Intake and Output Vital Signs (last 24 hours): Temp Pulse Resp BP Pulse Ox 97.8 F 65 20 122/77 97 02/11/18 08:10 02/11/18 08:10 02/11/18 08:10 02/11/18 08:10 02/11/18 08:10 Intake and Output: 02/11/18 02/11/18 06:59 18:59 Intake Total 765 Balance 765 - Medications Medications: Current Medications Docusate Sodium (Colace) 100 mg PO BID ROSARIO Last Admin: 02/10/18 21:38 Dose: 100 mg Metronidazole (Flagyl 500mg/100ml Ns) 100 mls @ 100 mls/hr IVPB Q8 ROSARIO; Prot ocol Last Admin: 02/11/18 08:46 Dose: 100 mls/hr Piperacillin Sod/Tazobactam (Sod 3.375 gm/ Sodium Chloride) 100 mls @ 100 mls/hr IVPB Q6 [facility]IO; Protocol Last Admin: 02/11/18 04:49 Dose: 100 mls/hr Lactated Ringer's (Lactated Ringer's) 1,000 mls @ 125 mls/hr IV .Q8H ROSARIO Last Admin: 02/11/18 04:50 Dose: 125 mls/hr Morphine Sulfate (Morphine) 2 mg IVP Q4 PRN PRN Reason: Pain, moderate (4-7) Ondansetron HCl (Zofran Inj) 4 mg IVP Q6 PRN PRN Reason: Nausea/Vomiting - Labs Labs: 02/11/18 05:50 02/11/18 05:50 PT 13.8 Seconds (9.8-13.1) H 02/08/18 21:46 INR 1.2 02/08/18 21:46 APTT 36.0 Seconds (25.6-37.1) 02/08/18 21:46 - Constitutional Appears: Well, No Acute Distress - Head Exam Head Exam: ATRAUMATIC, NORMOCEPHALIC - ENT Exam ENT Exam: Mucous Membranes Moist - Respiratory Exam Respiratory Exam: NORMAL BREATHING PATTERN - Cardiovascular Exam Cardiovascular Exam: RRR - GI/Abdominal Exam GI & Abdominal Exam: Soft, Tenderness (in the LLQ to deep palpation ). absent: Distended, Guarding, Rebound - Neurological Exam Neurological Exam: Alert, Awake, Oriented x3 - Skin Skin Exam: Dry, Warm Assessment and Plan - Assessment and Plan (Free Text) Assessment: 42M with acute diverticulitis & colovesicular fistula Plan: - cont NPO with IVF - IV ABX - will need outpt colonoscopy & cystoscopy once acute infection is resolved - serial abdominal exams - d/w Dr. Kendrick Ron <Francheska Marks - Last Filed: 02/11/18 11:50> Objective - Vital Signs/Intake and Output Vital Signs (last 24 hours): Temp Pulse Resp BP Pulse Ox 97.8 F 65 20 122/77 97 02/11/18 08:10 02/11/18 08:10 02/11/18 08:10 02/11/18 08:10 02/11/18 08:10 Intake and Output: 02/11/18 02/11/18 06:59 18:59 Intake Total 765 Balance 765 - Medications Medications: Current Medications Docusate Sodium (Colace) 100 mg PO BID [facility] Last Admin: 02/11/18 10:15 Dose: Not Given Metronidazole (Flagyl 500mg/100ml Ns) 100 mls @ 100 mls/hr IVPB Q8 ROSARIO; Protocol Last Admin: 02/11/18 08:46 Dose: 100 mls/hr Piperacillin Sod/Tazobactam (Sod 3.375 gm/ Sodium Chloride) 100 mls @ 100 mls/hr IVPB Q6 ROSARIO; Protocol Last Admin: 02/11/18 10:26 Dose: 100 mls/hr Lactated Ringer's (Lactated Ringer's) 1,000 mls @ 125 mls/hr IV .Q8H [facility] Last Admin: 02/11/18 04:50 Dose: 125 mls/hr Morphine Sulfate (Morphine) 2 mg IVP Q4 PRN PRN Reason: Pain, moderate (4-7) Ondansetron HCl (Zofran Inj) 4 mg IVP Q6 PRN PRN Reason: Nausea/Vomiting - Labs Labs: 02/11/18 05:50 02/11/18 05:50 PT 13.8 Seconds (9.8-13.1) H 02/08/18 21:46 INR 1.2 02/08/18 21:46 APTT 36.0 Seconds (25.6-37.1) 02/08/18 21:46 Assessment and Plan - Assessment and Plan (Free Text) Plan: seen and examined with resident staff. Agree with above. Clinically improving. still with pneumaturia but no dysuria. Start clears today. cont. abx.
[2018-02-12] MEDS: metroNIDAZOLE 500mg/100ml NS 100 ML IVPB SCH ×3 (00:21→16:21)
[2018-02-12] MEDS: Piperacillin/Tazobact 3.375 GM in Sodium Chloride 0.9% 100 ML IVPB SCH ×4 (04:44→21:50)
[2018-02-12] MEDS: Lactated Ringer's 1,000 ML IV SCH ×4 (04:45→20:00)
--- NOTE | 2018-02-12 08:31 | CP.PCM.PN ---
Subjective - Date & Time of Evaluation Date of Evaluation: 02/12/18 Time of Evaluation: 07:00 - Subjective Subjective: GENERAL SURGERY PROGRESS NOTE FOR DR. GILL Pt seen and examined at bedside. No acute overnight events. Still reports some pain in LLQ/suprapubic area. Tolerating CLD. He denies any nausea/vomiting, fevers or chills overnight. Continues to have pneumaturia. Had 4 BMs yesterday. Objective - Vital Signs/Intake and Output Vital Signs (last 24 hours): Temp Pulse Resp BP Pulse Ox 98.1 F 69 18 119/80 97 02/12/18 08:08 02/12/18 08:08 02/12/18 08:08 02/12/18 08:08 02/12/18 08:08 - Medications Medications: Current Medications Docusate Sodium (Colace) 100 mg PO BID ROSARIO Last Admin: 02/12/18 08:07 Dose: 100 mg Metronidazole (Flagyl 500mg/100ml Ns) 100 mls @ 100 mls/hr IVPB Q8 ROSARIO; Protocol Last Admin: 02/12/18 08:05 Dose: 100 mls/hr Piperacillin Sod/Tazobactam (Sod 3.375 gm/ Sodium Chloride) 100 mls @ 100 mls/hr IVPB Q6 ROSARIO; Protocol Last Admin: 02/12/18 04:44 Dose: 100 mls/hr Lactated Ringer's (Lactated Ringer's) 1,000 mls @ 125 mls/hr IV .Q8H [facility]ARIO Last Admin: 02/12/18 05:50 Dose: Not Given Morphine Sulfate (Morphine) 2 mg IVP Q4 PRN PRN Reason: Pain, moderate (4-7) Last Admin: 02/11/18 20:35 Dose: 2 mg Ondansetron HCl (Zofran Inj) 4 mg IVP Q6 PRN PRN Reason: Nausea/Vomiting - Labs Labs: 02/11/18 05:50 02/11/18 05:50 PT 13.8 Seconds (9.8-13.1) H 02/08/18 21:46 INR 1.2 02/08/18 21:46 APTT 36.0 Seconds (25.6-37.1) 02/08/18 21:46 - Constitutional Appears: Well, Non-toxic, No Acute Distress - Head Exam Head Exam: ATRAUMATIC, NORMAL INSPECTION - Eye Exam Eye Exam: EOMI, Normal appearance - Respiratory Exam Respiratory Exam: NORMAL BREATHING PATTERN. absent: Respiratory Distress - Cardiovascular Exam Cardiovascular Exam: +S1, +S2 - GI/Abdominal Exam GI & Abdominal Exam: Soft, Tenderness (tender to LLQ/suprapubic area). absent: Distended, Firm, Guarding, Rigid, Rebound - Neurological Exam Neurological Exam: Alert, Awake, Oriented x3 - Psychiatric Exam Psychiatric exam: Normal Affect, Normal Mood - Skin Skin Exam: Dry, Normal Color, Warm Assessment and Plan - Assessment and Plan (Free Text) Assessment: 42M with acute diverticulitis & colovesicular fistula Plan: - Continue CLD - IV ABX - Urine cx: gram negative rods - FU GI recs - Will need outpt colonoscopy & cystoscopy once acute infection is resolved - Will likely need outpatient surgery in 6-8 weeks - d/w Dr. Kendrick Aguilar PGY-4
--- NOTE | 2018-02-12 20:10 | CP.PCM.CON ---
History of Present Illness - History of Present Illness History of Present Illness: GI consult note for Dr. Carter-Ruth Gonzáles, PGY-2 Pt S & E at bedside at 1947 42 yo male w/PMH sig for diverticulitis (2nd episodes, last one 2 mos ago) consulted for colovesicular fistula 2/2 diverticulitis. Pt reports onset of LLQ abdominal pain 4 days prior to evaluation- constant, radiates to left testicle, severe. Admits to hematuria, pneumoturia, mucus while voiding, diarrhea, dysuria. Currently on clear liquid diet. Denies N & V, F & C, CP, SOB, constipation, sore throat, recent URI, other complaints. Pt reports that he was to set up colonoscopy with Dr. Carter prior to being admitted to hospital for abdominal pain. Denies ever having a colonoscopy. Hospital work up: CT ab w/acute sigmoid diverticulitis w/fistulous tract to bladder dome - colovesicular fistula, B/L non obstructive nephrolithiasis. Admitted with leukocytosis of 11.2 - now 10.8. Afebrile throughout hospitalization. PMH: Diverticulitis, colitis, diverticulosis PSH: Open appendectomy All: NKDA SH; Denies ETOH, tobacco, or illicit drug use PMD: Ramiro Reese Review of Systems - Review of Systems All systems: reviewed and no additional remarkable complaints except - Constitutional Constitutional: absent: Chills, Fever, Headache - EENT Nose/Mouth/Throat: absent: Sore Throat - Cardiovascular Cardiovascular: absent: Chest Pain - Respiratory Respiratory: absent: Cough - Gastrointestinal Gastrointestinal: Abdominal Pain, Change in Bowel Habits, Change in Stool Character, Diarrhea, Loose Stools. absent: Constipation, Hematemesis, Hematochezia, Melena, Nausea, Vomiting - Genitourinary Genitourinary: Dysuria, Hematuria, Other (pneumoturia) - Musculoskeletal Musculoskeletal: absent: Back Pain - Integumentary Integumentary: absent: Rash - Psychiatric Psychiatric: Change in Appetite (decreased) Past Patient History - Infectious Disease Hx of Infectious Diseases: None - Tetanus Immunizations Tetanus Immunization: Unknown - Past Medical History & Family History Past Medical History?: No - Past Social History Alcohol: None Drugs: Denies - CARDIAC Hx Cardiac Disorders: No - PULMONARY Hx Respiratory Disorders: No - NEUROLOGICAL Hx Neurological Disorder: No - HEENT Hx HEENT Problems: No - RENAL Hx Chronic Kidney Disease: No - ENDOCRINE/METABOLIC Hx Endocrine Disorders: No - HEMATOLOGICAL/ONCOLOGICAL Hx Human Immunodeficiency Virus (HIV): No - INTEGUMENTARY Hx Dermatological Problems: No - MUSCULOSKELETAL/RHEUMATOLOGICAL Hx Musculoskeletal Disorders: No Hx Falls: No - GASTROINTESTINAL Hx Gastrointestinal Disorders: No - GENITOURINARY/GYNECOLOGICAL Hx Genitourinary Disorders: No - PSYCHIATRIC Hx Psychophysiologic Disorder: No Hx Substance Use: No - SURGICAL HISTORY Hx Appendectomy: Yes - ANESTHESIA Hx Anesthesia: Yes Hx Anesthesia Reactions: No Meds Allergies/Adverse Reactions: Allergies Allergy/AdvReac Type Severity Reaction Status Date / Time No Known Allergies Allergy Verified 11/29/17 15:35 - Medications Medications: Current Medications Docusate Sodium (Colace) 100 mg PO BID ROSARIO Last Admin: 02/12/18 16:21 Dose: 100 mg Metronidazole (Flagyl 500mg/100ml Ns) 100 mls @ 100 mls/hr IVPB Q8 ROSARIO; Protocol Last Admin: 02/12/18 16:21 Dose: 100 mls/hr Piperacillin Sod/Tazobactam (Sod 3.375 gm/ Sodium Chloride) 100 mls @ 100 mls/hr IVPB Q6 ROSARIO; Protocol Last Admin: 02/12/18 16:20 Dose: 100 mls/hr Lactated Ringer's (Lactated Ringer's) 1,000 mls @ 125 mls/hr IV .Q8H [facility]ARIO Last Admin: 02/12/18 16:21 Dose: 125 mls/hr Ondansetron HCl (Zofran Inj) 4 mg IVP Q6 PRN PRN Reason: Nausea/Vomiting Physical Exam - Constitutional Appears: Non-toxic, No Acute Distress - Head Exam Head Exam: ATRAUMATIC, NORMAL INSPECTION, NORMOCEPHALIC - Eye Exam Eye Exam: EOMI, Normal appearance - ENT Exam ENT Exam: Mucous Membranes Moist, Normal Exam - Neck Exam Neck exam: Positive for: Full Rom, Normal Inspection - Respiratory Exam Respiratory Exam: NORMAL BREATHING PATTERN - Cardiovascular Exam Cardiovascular Exam: REGULAR RHYTHM, +S1, +S2 - GI/Abdominal Exam GI & Abdominal Exam: Guarding (LLQ), Soft, Tenderness (LLQ). absent: Distended, Firm Additional comments: Well healed paramedian scar in RLQ - Extremities Exam Extremities exam: Positive for: normal inspection. Negative for: tenderness - Back Exam Back exam: NORMAL INSPECTION - Neurological Exam Neurological exam: Alert, CN II-XII Intact, Oriented x3 - Psychiatric Exam Psychiatric exam: Normal Affect, Normal Mood - Skin Skin Exam: Dry, Intact, Normal Color, Warm Results - Vital Signs Recent Vital Signs: Last Vital Signs Temp 99.2 F 02/12/18 15:59 Pulse 78 02/12/18 15:59 Resp 18 02/12/18 15:59 BP 119/82 02/12/18 15:59 Pulse Ox 98 02/12/18 15:59 - Labs Result Diagrams: 02/11/18 05:50 02/11/18 05:50 Assessment & Plan - Assessment and Plan (Free Text) Assessment: 42M w/PMH sig for sigmoid diverticulitis now with colovesicular fistula Plan: Cont Abx Advance diet as tolerated Pain control Need to speak to radiology for recommendations regarding better imaging study to identify location of fistula Will need outpatient colonoscopy in [address] Raul Gonzáles, PGY-2 - Date & Time Date: 02/12/18 Time: 20:13
[2018-02-13] MEDS: metroNIDAZOLE 500mg/100ml NS 100 ML IVPB SCH ×2 (01:23→10:36)
[2018-02-13] MEDS: Lactated Ringer's 1,000 ML IV SCH (03:39)
[2018-02-13] MEDS: Piperacillin/Tazobact 3.375 GM in Sodium Chloride 0.9% 100 ML IVPB SCH ×3 (03:39→16:21)
[2018-02-13 08:26] VITALS: PULSE 61
--- NOTE | 2018-02-13 12:29 | CP.PCM.DIS ---
Provider - Provider Date of Admission: 02/09/18 00:13 Attending physician: Francheska Marks MD Consults: Monika - Urology Raul - GI Time Spent in preparation of Discharge (in minutes): 30 Diagnosis - Discharge Diagnosis (1) Acute diverticulitis Status: Acute (2) Colovesical fistula Status: Acute Hospital Course - Lab Results Lab Results: Micro Results 02/09/18 00:00 Blood-Venous Blood Culture - Preliminary NO GROWTH AFTER 4 DAYS 02/09/18 00:30 Blood-Venous Blood Culture - Preliminary NO GROWTH AFTER 4 DAYS 02/09/18 00:00 Urine,Clean Catch Urine Culture - Final Gram Negative [place] Most Recent Lab Values WBC 10.8 K/uL (4.8-10.8) D 02/11/18 05:50 RBC 5.22 Mil/uL (4.40-5.90) 02/11/18 05:50 Hgb 15.9 g/dL (12.0-18.0) 02/11/18 05:50 Hct 47.2 % (35.0-51.0) 02/11/18 05:50 MCV 90.4 fl (80.0-94.0) 02/11/18 05:50 MCH 30.5 pg (27.0-31.0) 02/11/18 05:50 MCHC 33.7 g/dL (33.0-37.0) 02/11/18 05:50 RDW 14.0 % (11.5-14.5) 02/11/18 05:50 Plt Count 257 K/uL (130-400) 02/11/18 05:50 MPV 8.6 fl (7.2-11.7) 02/11/18 05:50 Neut % (Auto) 69.7 % (50.0-75.0) 02/11/18 05:50 Lymph % (Auto) 20.1 % (20.0-40.0) 02/11/18 05:50 [place] % (Auto) 7.4 % (0.0-10.0) 02/11/18 05:50 Eos % (Auto) 2.4 % (0.0-4.0) 02/11/18 05:50 Baso % (Auto) 0.4 % (0.0-2.0) 02/11/18 05:50 Neut # (Auto) 7.5 K/uL (1.8-7.0) H 02/11/18 05:50 Lymph # (Auto) 2.2 K/uL (1.0-4.3) 02/11/18 05:50 [place] # (Auto) 0.8 K/uL (0.0-0.8) 02/11/18 05:50 Eos # (Auto) 0.3 K/uL (0.0-0.7) 02/11/18 05:50 Baso # (Auto) 0.0 K/uL (0.0-0.2) 02/11/18 05:50 PT 13.8 Seconds (9.8-13.1) H 02/08/18 21:46 INR 1.2 02/08/18 21:46 APTT 36.0 Seconds (25.6-37.1) 02/08/18 21:46 Sodium 138 mmol/l (132-148) 02/11/18 05:50 Potassium 4.3 MMOL/L (3.6-5.0) 02/11/18 05:50 Chloride 103 mmol/L (98-107) 02/11/18 05:50 Carbon Dioxide 22 mmol/L (22-30) 02/11/18 05:50 Anion Gap 17 (10-20) 02/11/18 05:50 BUN 14 mg/dl (9-20) 02/11/18 05:50 Creatinine 1.0 mg/dl (0.8-1.5) 02/11/18 05:50 Est GFR ( Amer) > 60 02/11/18 05:50 Est GFR (Non-Af Amer) > 60 02/11/18 05:50 Random Glucose 63 mg/dL (75-110) L 02/11/18 05:50 Calcium 8.9 mg/dL (8.4-10.2) 02/11/18 05:50 Phosphorus 3.2 mg/dl (2.5-4.5) 02/11/18 05:50 Magnesium 1.6 MG/DL (1.6-2.3) 02/11/18 05:50 Total Bilirubin 1.5 mg/dl (0.2-1.3) H 02/11/18 05:50 AST 26 U/L (17-59) 02/11/18 05:50 ALT 39 U/L (21-72) 02/11/18 05:50 Alkaline Phosphatase 58 U/L (38-126) 02/11/18 05:50 Total Protein 7.4 G/DL (6.3-8.2) 02/11/18 05:50 Albumin 3.8 g/dL (3.5-5.0) 02/11/18 05:50 Globulin 3.6 gm/dL (2.2-3.9) 02/11/18 05:50 Albumin/Globulin Ratio 1.1 (1.0-2.1) 02/11/18 05:50 Urine Color Yellow (YELLOW) 02/08/18 20:48 Urine Clarity Turbid (Clear) 02/08/18 20:48 Urine pH 6.0 (5.0-8.0) 02/08/18 20:48 Ur Specific [place] 1.018 (1.003-1.030) 02/08/18 20:48 Urine Protein 100 mg/dL (NEGATIVE) 02/08/18 20:48 Urine Glucose (UA) Neg mg/dL (Normal) 02/08/18 20:48 Urine Ketones Negative mg/dL (NEGATIVE) 02/08/18 20:48 Urine Blood Large (NEGATIVE) 02/08/18 20:48 Urine Nitrate Negative (NEGATIVE) 02/08/18 20:48 Urine Bilirubin Negative (NEGATIVE) 02/08/18 20:48 Urine Urobilinogen 0.2-1.0 mg/dL (0.2-1.0) 02/08/18 20:48 Ur Leukocyte Esterase Large Archie/uL (Negative) 02/08/18 20:48 Urine RBC (Auto) 394 /hpf (0-3) H 02/08/18 20:48 Urine WBC Clumps (Auto) Many /hpf (NONE) H 02/08/18 20:48 Urine Microscopic WBC 1654 /hpf (0-5) H 02/08/18 20:48 Urine Bacteria Rare (<OCC) 02/08/18 20:48 - Hospital Course Hospital Course: 42M presented to ED with LLQ pain and pneumaturia with CT findings consistent with diverticulitis and colovesciculo fistula. Pt was treated conservatively with abx/NPO, symptoms improved. Pt was started on CLD and is currently tolerating it. Pain is currently improved, pt has had no further episodes of pn eumaturia. Pt is clear for d/c from surgical standpoint. Pt is to follow up with consultants as instructed. Pt is to take medications as instructed. Discharge Exam - Head Exam Head Exam: ATRAUMATIC, NORMAL INSPECTION, NORMOCEPHALIC - Eye Exam Eye Exam: EOMI - ENT Exam ENT Exam: Mucous Membranes Moist - Neck Exam Neck exam: Full Rom - Respiratory Exam Respiratory Exam: NORMAL BREATHING PATTERN. absent: Accessory Muscle Use, Respiratory Distress - GI/Abdominal Exam GI & Abdominal Exam: Soft, Tenderness (mild LLQ). absent: Distended, Firm, Guarding, Rebound, Rigid - Neurological Exam Neurological exam: Alert, Oriented x3 - Psychiatric Exam Psychiatric exam: Normal Affect, Normal Mood - Skin Skin Exam: Dry, Normal Color, Warm Discharge Plan - Discharge Medications Prescriptions: Amoxicillin/Clavulanate [Augmentin 875 MG-125 MG] 1 tab PO Q12 #28 tab Docusate Sodium/Sennosides A [Senokot S 50 MG-8.6 MG] 1 tab PO DAILY #30 tab Psyllium [Hydrocil Instant] 3.5 gm PO DAILY #30 packet - Follow Up Plan Condition: STABLE Disposition: HOME/ ROUTINE Patient education suggested?: Yes Instructions: Low Fiber Diet, Diverticulitis (DC) Additional Instructions: Clear liquid diet for 5 days Take meds as instructed Follow up with primary MD/consultants in 1 week Return to ED if symptoms worsen Referrals: [facility] [Provider Group] - 1 Week Mark Frank Jr., MD [Staff Provider] - 1 Week Francheska Marks MD [Staff Provider] - 1 Week Ramiro Reese MD [Family Provider] - Cayden Carter MD [Staff Provider] - 1 Week
[2018-02-13 13:30] LABS: HEMOGLOBIN 16.2 g/dL (12.0-18.0); MEAN CELL VOLUME 88.7 fl (80.0-94.0); MEAN CORPUSCULAR HEMOGLOBIN 31.1 pg (27.0-31.0); MEAN CORPUSCULAR HGB CONC 35.1 g/dL (33.0-37.0); RBC 5.22 Mil/uL (4.40-5.90); RED CELL DISTRIBUTION WIDTH 13.9 % (11.5-14.5); WHITE BLOOD COUNT 8.7 K/uL (4.8-10.8)
[2018-02-13 15:56] VITALS: BP 124/76; RESP 18; TEMP 98.2; O2SAT 97
--- NOTE | 2018-02-18 12:38 | PQF ---
PROVIDER RESPONSE TEXT: Cystitis, UTI, pneumaturia all present and secondary to colovesicular fistula from complicated recurr ent diverticulitis REVIEWER QUERY TEXT: Documentation Clarification Your help is requested in clarifying the following clinical documentation, if you can please further specify in the medical record and discharge summary. Cystitis, Uti and Pneumaturia documented in medical record. Please specify after study if patient had a diagnosis of cystitis, uti, pneumaturia, other or unspecified. Thank you The patient's Clinical Indicators include: Cystitis, Uti and pneumaturia Query created by: Zakiya Alvarenga on 02/15/2018 9:23 AM Electronically signed by: Francheska MEDINA 02/18/2018 12:35 PM
== END 2018-02-13 17:55 | disposition home or self-care (01) | DRG 332 ==
LOC: H.ER 18:29 → H.ERHOLD 02-09 00:13 → H.MEDSURG1 02-09 02:42
PROVIDERS: ADMIT Surgery; ATTEND Surgery
DX: N32.1 Vesicointestinal fistula (principal); K57.32 Diverticulitis of large intestine without perforation or abscess without bleeding; N30.90 Cystitis, unspecified without hematuria; K59.00 Constipation, unspecified; N20.0 Calculus of kidney; R39.89 Other symptoms and signs involving the genitourinary system

== ENCOUNTER 2018-03-13 07:08 | Day surgery (SDC) | payer SELFPAY ==
[2018-03-13 07:53] VITALS: BMI 22.6
[2018-03-13] MEDS ORDERED: Midazolam 2 MG/2 ML VIAL ONE (09:03)
[2018-03-13] MEDS ORDERED: Propofol 10 mg/ml Inj (20 ML) ONE (09:03)
[2018-03-13] MEDS ORDERED: cefTRIAXone (Rocephin) 1 gm Inj ONE (09:06)
[2018-03-13] MEDS ORDERED: Iohexol 240 200 ML ONE ×2 (09:06→09:16)
[2018-03-13] MEDS ORDERED: Lactated Ringer's 1,000 ML IV ONE (09:07)
[2018-03-13] MEDS ORDERED: Ciprofloxacin 400mg/200ml D5W 400 MG/200 ML BAG IVPB ONE (09:12)
[2018-03-13] MEDS ORDERED: Gentamicin 80mg/50ml NS 160 MG/100 ML BAG IVPB ONE (09:12)
[2018-03-13] MEDS ORDERED: Lidocaine 2% Jelly (Uro-Jet) ONE (09:20)
--- NOTE | 2018-03-13 09:42 | PCM.SURG1 ---
Surgeon's Initial Post Op Note - Surgeon's Notes Surgeon: Monika [employer] Administrator: HIREN Type of Anesthesia: General LMA Anesthesia Administered By: staff Pre-Operative Diagnosis: Vesico colic fistula Operative Findings: Lesion post wall consistant w vesico colic fistula Post-Operative Diagnosis: Visual evidence of fistula/no radiological evidence of fistula Operation Performed: Cysto W BX cystogram Specimen/Specimens Removed: Bladder lesion bx Estimated Blood Loss: EBL {In ML}: 0 Blood Products Given: N/A Drains Used: No Drains Post-Op Condition: Good Date of Surgery/Procedure: 03/13/18 Time of Surgery/Procedure: 09:43
[2018-03-13] MEDS ORDERED: Lactated Ringer's 1,000 ML IV SCH (10:15)
[2018-03-13 11:32] VITALS: RESP 18
--- NOTE | 2018-03-13 11:37 | RAD ---
Date of service: 03/13/2018 PROCEDURE: Intraoperative Fluoroscopy. HISTORY: CYSTOSCOPY FINDINGS: Fluoroscopic assistance was provided for cystoscopy. Please refer to the operative report from TASHA Ashraf. Total fluoroscopic time (continuous mode) utilized during the procedure 24 (seconds).
[2018-03-13 12:25] VITALS: BP 118/74; PULSE 69; TEMP 97.4; O2SAT 98
--- NOTE | 2018-03-14 08:45 | OP ---
PROCEDURE DATE: 03/13/2018 PREOPERATIVE DIAGNOSIS: Suspected vesicovaginal fistula. POSTOPERATIVE DIAGNOSES: Visual evidence of vesicovaginal fistula. No radiological evidence of vesicovaginal fistula. PROCEDURE: Cystoscopy, biopsy of suspected perifistulous tract tissue, and cystogram. DESCRIPTION OF PROCEDURE: Prior to the procedure, detailed informed consent was obtained from the patient. The patient agreed to accept all risks after full explanation of all possible methods of managing suspected vesicocolic fistula. The patient was given prophylactic antibiotics and draped and prepped in the usual manner. Time-out had been taken according to the rules and regulations of [facility]. Xylocaine 2% jelly was instilled per urethra and the patient was cystoscoped with a #20 Olympus panendoscope. The pendulous membranes of the urethra were normal . The prostatic urethra showed no evidence of significant outlet obstruction. The patient had a small amount of debris floating within the bladder. On the posterior left side of the bladder, was noted a lesion consistent with vesicocolic fistula. There was perifistular erythema and a heaped up mucosa. The area of the mucosa was biopsied to rule out tumor. No bleeding occurred. The patient tolerated this very well. The bladder was then catheterized with a #18 Chow catheter and the bladder was filled with dye. Multiple films were taken and failed to demonstrate any fistulous tract even on the drainage film. Based on the above findings, there was equivocal evidence of vesicocolic fistula. The patient will be referred to General Surgery for further treatment and evaluation. Mark Frank MD
== END 2018-03-13 12:32 | disposition home or self-care (01) ==
LOC: H.OPSURG 07:08
PROVIDERS: ATTEND Urology
DX: N32.2 Vesical fistula, not elsewhere classified (principal)
CPT/HCPCS: 52204; 88305; J0744; J1580; J1885; J2001; J2250; J2405; J2704; J3010; J7120; Q9966

== ENCOUNTER 2018-03-18 07:12 | Day surgery (SDC) | payer SELFPAY ==
[2018-03-18] MEDS ORDERED: Lactated Ringer's 500 ML IV ONE ×2 (07:55→09:41)
[2018-03-18] MEDS ORDERED: Propofol 10 mg/ml Inj (20 ML) ONE (09:10)
[2018-03-18] MEDS ORDERED: Midazolam 2 MG/2 ML VIAL ONE (09:10)
[2018-03-18 09:53] VITALS: TEMP 98
[2018-03-18 10:13] VITALS: BP 103/55; PULSE 72; RESP 16; O2SAT 99
== END 2018-03-18 10:34 | disposition home or self-care (01) ==
LOC: H.ENDO 07:12
PROVIDERS: ATTEND Internal Medicine Gastroenterology
DX: K57.32 Diverticulitis of large intestine without perforation or abscess without bleeding (principal); K64.8 Other hemorrhoids; D49.0 Neoplasm of unspecified behavior of digestive system; K57.30 Diverticulosis of large intestine without perforation or abscess without bleeding
CPT/HCPCS: 45380; 45381; 88305; J2001; J2250; J2704; J7120

== ENCOUNTER 2018-05-24 16:23 | Inpatient (IN) | payer SELFPAY ==
[2018-05-24 16:23] VITALS: BMI 22.6
[2018-05-24] MEDS ORDERED: Iohexol 240 (50 ml) PO ONE (17:24)
[2018-05-24] MEDS ORDERED: Piperacillin/Tazobact 4.5 GM in Sodium Chloride 0.9% 100 ML IVPB ONE (17:34)
--- NOTE | 2018-05-24 18:04 | ED PDOC ---
HPI: General Adult Time Seen by Provider: 05/24/18 16:52 Chief Complaint (Nursing): Male Genitourinary Chief Complaint (Provider): Abdominal pain History Per: Patient History/Exam Limitations: no limitations Onset/Duration Of Symptoms: Days (2x) Current Symptoms Are (Timing): Still Present Severity: Moderate Additional Complaint(s): 43 year old male recently diagnosed with diverticulitis with colovesicular fistula presents to the ED with complaints of recurring left lower quadrant abdominal pain and urinary symptoms. Patient reports that his most recent CT scan (abdomen and pelvis) was on 05/11/2018 which showed a colovesicular fistula. Patient was managed without surgery, and his symptoms improved. Yesterday patient again began experiencing burning with urination and noted frothy urine with puss and some stool. Patient began having abdominal pain aswell in the same area as previously. Patient's daughter spoke with (surgeon who patient was being evaluated by for surgery in the near future) recommended that the patient present to the ED for further evaluation. Patient reports having chills, a tactile fever, although when he measured his temperature last night it was 99 F. Patient's last bowel movement was today. Ot erwise patent denies having nausea, vomiting, and diarrhea. PMD: None provided. Past Medical History Reviewed: Historical Data, Nursing Documentation, Vital Signs Vital Signs: Last Vital Signs Temp 98.0 F 05/24/18 16:39 Pulse 96 H 05/24/18 16:39 Resp 16 05/24/18 16:39 BP 135/93 H 05/24/18 16:39 Pulse Ox 98 05/24/18 16:39 JAEN Report Viewed: Yes - Medical History PMH: Diverticulitis (with a colovesicular fistula) Denies: HIV, Chronic Kidney Disease - Surgical History Surgical History: Appendectomy - Family History Family History: States: Diabetes - Social History Current smoker - smoking cessation education provided: No Alcohol: None Drugs: Denies - Home Medications Home Medications: Ambulatory Orders Medication Instructions Recorded No Known Home Med 03/07/18 - Allergies Allergies/Adverse Reactions: Allergies Allergy/AdvReac Type Severity Reaction Status Date / Time No Known Allergies Allergy Verified 03/13/18 07:21 Review of Systems ROS Statement: Except As Marked, All Systems Reviewed And Found Negative Constitutional: Positive for: Fever (tactile, when measured temperature was 99 F), Chills Gastrointestinal: Positive for: Abdominal Pain (left lower quadrant). Negative for: Nausea, Vomiting, Diarrhea Genitourinary Male: Positive for: Dysuria (urine is frothy with puss and some stool) Physical Exam - Reviewed Nursing Documentation Reviewed: Yes Vital Signs Reviewed: Yes - Physical Exam Appears: Positive for: Non-toxic, Uncomfortable Head Exam: Positive for: ATRAUMATIC, NORMOCEPHALIC Cardiovascular/Chest: Positive for: Regular Rate, Rhythm Respiratory: Positive for: Normal Breath Sounds Gastrointestinal/Abdominal: Positive for: Tenderness (tenderness on palpation of both LLQ and RLQ, suprapubic tenderness.), Guarding (of LLQ). Negative for: Mass, Rebound, Other (erythema, edema, or drainage noted to LLQ) Neurologic/Psych: Positive for: Alert, Oriented (3x) - Laboratory Results Result Diagrams: 06/03/18 06:55 06/03/18 06:55 - ECG O2 Sat by Pulse Oximetry: 98 (RA) Pulse Ox Interpretation: Normal - CT Scan/US CT abdomen and pelvis Other Rad Studies (CT/US): Read By Radiologist, Radiology Report Reviewed (see MDM note) Medical Decision Making Medical Decision Makin:52 Initial impression: 43 year old male with abdominal pain and urinary symptoms Initial plan: * CBC * CMP * bood culture * morphine 2 mg IV Discussed case with who recommended admitting patient for IV antibiotics and a repeat abdominal scan. states that patient will likely need surgery on this admission, but not tomorrow. CT abdomen and pelvis with PO contrast ordered. Vancomycin ordered. 18:15 Admission discussed with . Patient to be admitted to med/surg for diverticulitis and colovesicular fistula. Patient is signed out by me to for admission. 21:20 CT abdomen and pelvis read and reviewed by radiologist FINDINGS: LUNG BASES: The lung bases appear clear. No pleural effusions are seen. LIVER: Unremarkable. GALLBLADDER AND BILE DUCTS: The gallbladder appears within normal limits. No radioopaque gallstones are seen. No biliary ductal dilatation is evident. PANCREAS: Unremarkable. SPLEEN: Unremarkable. ADRENAL GLANDS: Unremarkable. KIDNEYS, URETERS, AND BLADDER: Several punctate 1-2 mm non-obstructing calculi are present in the right and left kidney. Bladder wall thickening is noted measuring up to 5 mm, consistent with cystitis. Bubbles of air present within the urinary bladder and there are findings consistent with colovesicular fistula. STOMACH AND BOWEL: Moderate amount of fecal material is seen throughout the colon compatible with constipation. There is diffuse diverticulosis noted involving sigmoid colon. There is marked inflammatory stranding noted adjacent to the sigmoid colon compatible with acute diverticulitis. APPENDIX: No evidence of acute appendicitis on CT examination. PERITONEUM: No free fluid. No free air. LYMPH NODES: No lymphadenopathy is evident. REPRODUCTIVE: Unremarkable as visualized. VASCULATURE: No evidence of abdominal aortic aneurysm. BONES: No aggressive appearing osseous lesion. No acute osseous pathology evident. MISCELLANEOUS: Severe inflammatory stranding is present in the lower pelvis. IMPRESSION: 1. Several punctate 1-2 mm non-obstructing calculi are present in the right and left kidney. 2. Moderate amount of fecal material is seen throughout the colon compatible with constipation. 3. Severe inflammatory stranding is present in the lower pelvis. 4. There is diffuse diverticulosis noted involving sigmoid colon. There is marked inflammatory stranding noted adjacent to the sigmoid colon compatible with acute diverticulitis. 5. Bladder wall thickening is noted measuring up to 5 mm, consistent with cystitis. Bubbles of air present within the urinary bladder and there are findings consistent with colovesicular fistula Scribe Attestation: Documented Karri Mena, acting as a scribe for Cat Escobar PA-C. Provider Scribe Attestation: All medical record entries made by the Scribe were at my direction and personally dictated by me. I have reviewed the chart and agree that the record accurately reflects my personal performance of the history, physical exam, medical decision making, and the department course for this patient. I have also personally directed, reviewed, and agree with the discharge instructions and disposition. Disposition - Clinical Impression Clinical Impression: Colovesical fistula - Patient ED Disposition Is Patient to be Admitted: Yes Discussed With : Rodrick Dupree Doctor Will See Patient In The: Hospital - Disposition Disposition: Transfer of Care Disposition Time: 18:15 Condition: STABLE
[2018-05-24] MEDS ORDERED: Iohexol 240 (50 ml) ONE (18:07)
[2018-05-24 18:26] LABS: BASO # 0.1 K/uL (0.0-0.2); BASO % 0.5 % (0.0-2.0); EOS # 0.2 K/uL (0.0-0.7); EOS % 1.1 % (0.0-4.0); HEMOGLOBIN 15.7 g/dL (12.0-18.0); LYMPH # 2.4 K/uL (1.0-4.3); LYMPH % 16.4 % (20.0-40.0); MEAN CELL VOLUME 91.6 fl (80.0-94.0); MEAN CORPUSCULAR HEMOGLOBIN 31.4 pg (27.0-31.0); MEAN CORPUSCULAR HGB CONC 34.3 g/dL (33.0-37.0); MEAN PLATELET VOLUME 8.6 fl (7.2-11.7); MONO # 1.2 K/uL (0.0-0.8); MONO % 8.3 % (0.0-10.0); NEUT # 10.7 K/uL (1.8-7.0); NEUT % 73.7 % (50.0-75.0); RBC 4.99 Mil/uL (4.40-5.90); RED CELL DISTRIBUTION WIDTH 13.5 % (11.5-14.5); WHITE BLOOD COUNT 14.6 K/uL (4.8-10.8)
[2018-05-24 18:35] LABS: URINE BACTERIA RARE (<OCC); URINE BILIRUBIN NEGATIVE (NEGATIVE); URINE BLOOD LARGE (NEGATIVE); URINE CLARITY CLOUDY (Clear); URINE COLOR YELLOW (YELLOW); URINE GLUCOSE (UA) NEG (NEGATIVE); URINE LEUKOCYTE ESTERASE LARGE Leu/uL (Negative); URINE PROTEIN NEGATIVE (NEGATIVE); URINE UROBILINOGEN 0.2-1.0 mg/dL (0.2-1.0); WBC CLUMPS FEW /hpf
[2018-05-24 18:37] LABS: ALB/GLOB RATIO 1.1 (1.0-2.1); ALBUMIN 4.5 g/dL (3.5-5.0); ALT/SGPT 40 U/L (21-72); AST/SGOT 35 U/L (17-59); BLOOD UREA NITROGEN 17 mg/dl (9-20); CALCIUM 9.4 mg/dL (8.4-10.2); GFR NON-AFRICAN AMERICAN > 60
[2018-05-24] MEDS ORDERED: Vancomycin 1 g Inj ONE (18:51)
[2018-05-24] MEDS ORDERED: Morphine 4 MG/ML VIAL ONE (18:52)
[2018-05-24] MEDS ORDERED: Morphine 4 MG/ML VIAL IVP ONE (19:00)
[2018-05-25] MEDS: Dextrose 5%/0.9% NS 1,000 ML IV SCH ×2 (00:03→12:16)
[2018-05-25] MEDS: Piperacillin/Tazobact 4.5 GM in Sodium Chloride 0.9% 100 ML IVPB SCH ×3 (04:52→21:16)
[2018-05-25 07:34] LABS: HEMOGLOBIN 15.3 g/dL (12.0-18.0); MEAN CORPUSCULAR HEMOGLOBIN 31.9 pg (27.0-31.0); MEAN CORPUSCULAR HGB CONC 34.6 g/dL (33.0-37.0); RBC 4.79 Mil/uL (4.40-5.90); RED CELL DISTRIBUTION WIDTH 13.4 % (11.5-14.5); WHITE BLOOD COUNT 8.1 K/uL (4.8-10.8)
[2018-05-25 07:54] LABS: ALBUMIN 3.9 g/dL (3.5-5.0); ALT/SGPT 47 U/L (21-72); AST/SGOT 40 U/L (17-59); BLOOD UREA NITROGEN 14 mg/dl (9-20); CALCIUM 9.1 mg/dL (8.4-10.2); GFR NON-AFRICAN AMERICAN > 60; HDL CHOLESTEROL 29 MG/DL (30-70); LDL CHOLESTEROL 93 mg/dL (0-129)
[2018-05-25 08:00] LABS: T4 8.32 ug/dl (5.5-11.0)
[2018-05-25 08:27] LABS: INR 1.2
[2018-05-25 08:30] LABS: PARTIAL THROMBOPLASTIN TIME 34.7 Seconds (25.6-37.1)
--- NOTE | 2018-05-25 12:23 | CT ---
Date of service: 05/24/2018 PROCEDURE: CT Abdomen and Pelvis with contrast HISTORY: LLQ abd pain, known colovesicular fistula COMPARISON: Abdomen pelvis CT without contrast 05/11/2018. TECHNIQUE: Helical CT of the abdomen and pelvis was performed following oral contrast administration only. Intravenous contrast was not administered as per referring physician request. Coronal and sagittal reformats were generated. Contrast dose: None Radiation dose: Total exam DLP = 288.95 mGy-cm. This CT exam was performed using one or more of the following dose reduction techniques: Automated exposure control, adjustment of the mA and/or kV according to patient size, and/or use of iterative reconstruction technique. FINDINGS: LOWER THORAX: Unremarkable. LIVER: Unremarkable. No gross lesion or ductal dilatation. GALLBLADDER AND BILE DUCTS: Unremarkable. PANCREAS: Unremarkable. No gross lesion or ductal dilatation. SPLEEN: Unremarkable. ADRENALS: Unremarkable. No mass. KIDNEYS AND URETERS: Nonobstructing punctate intrarenal calculi identified bilaterally with 1 in each of the lower pole bilateral kidneys and a solitary focus at the upper pole right kidney as well. No hydronephrosis. No solid mass. VASCULATURE: Unremarkable. No aortic aneurysm. No aortic atherosclerotic calcification or mural plaque present. BOWEL: Prominent fecal loading seen in the ascending and transverse large-bowel segments. Prominent mural thickening seen affecting sigmoid segment which also exhibits diverticulosis. Prominent pericolic reaction surrounds thickened sigmoid bowel loops compatible with diverticulitis. There is gas seen which is felt to be extra luminal immediately cephalad to the urinary bladder. This suspicious for a small abscess or possibly a colovesical fistula. Follow-up cystogram may be helpful for further characterization. APPENDIX: Normal appendix. PERITONEUM: Unremarkable. No free fluid. No free air. LYMPH NODES: Unremarkable. No enlarged lymph nodes. BLADDER: Unremarkable. REPRODUCTIVE: Borderline enlarged prostate gland evident. BONES: No acute fracture. OTHER FINDINGS: None. IMPRESSION: 1. Complicated sigmoid diverticulitis with abscess or possible colovesical fistula at the dome of the urinary bladder. Consider follow-up cystogram or consider repeat CT following significant delay after oral contrast administration or following water-soluble contrast enema. 2. Punctate nonobstructing intrarenal calculi infrequent noted bilateral kidneys. Concordant preliminary report from [facility], 05/24/2018, 9:20 p.m..
--- NOTE | 2018-05-25 16:39 | CP.PCM.HP ---
History of Present Illness - History of Present Illness History of Present Illness: CC: Abdominal pain. 43 y/o M, PMHx: Diverticulitis with colovesicular fistula, [facility] be [facility] for abdominal pain LLQ > RLQ,suprapubic area, pain has been intermittent, moderate to severe severity up to 8:10, gradually increased from 4 days [employer] with no relief, associated to tactile fever and chills while at home. Hx of Colovesical fistula Worsening symptoms: As per PT, painful/ burning urination on and off since October 2017, now with puss and blood mixed Aggravated factor: Painful urination. Pt denied: Diarrhea, CP, tachycardia, syncope, dizziness, SOB, cough, sick contact, recent travel out of [facility]. Abd/Pelvis CT: Diverticulitis, abdominal abscess with colovesicular fistula. Present on Admission - Present on Admission Any Indicators Present on Admission: No Review of Systems - Constitutional Constitutional: Chills, Fever - EENT Eyes: Other (negative) Ears: Other (negative) Nose/Mouth/Throat: Other (negative) - Cardiovascular Cardiovascular: Other (negative) - Respiratory Respiratory: Other (negative) - Genitourinary Genitourinary: As Per HPI, Dysuria, Hematuria, Other (burning urination, puss with the urine) - Musculoskeletal Musculoskeletal: Other (negative) - Integumentary Integumentary: Other (negative) - Neurological Neurological: Other (negative) - Psychiatric Psychiatric: Other (negative) - Endocrine Endocrine: Other (negative) - Hematologic/Lymphatic Hematologic: Other (negative) Past Patient History - Infectious Disease Hx of Infectious Diseases: None - Tetanus Immunizations Tetanus Immunization: Unknown - Past Medical History & Family History Past Medical History?: No Pertinent Family History: DM - Past Social History Smoking Status: Never Smoked Alcohol: None Drugs: Denies Home Situation {Lives}: Alone - CARDIAC Hx Cardiac Disorders: No - PULMONARY Hx Respiratory Disorders: No - NEUROLOGICAL Hx Neurological Disorder: No - HEENT Hx HEENT Problems: No - RENAL Hx Chronic Kidney Disease: No - ENDOCRINE/METABOLIC Hx Endocrine Disorders: No - HEMATOLOGICAL/ONCOLOGICAL Hx Blood Disorders: No Hx Human Immunodeficiency Virus (HIV): No - INTEGUMENTARY Hx Dermatological Problems: No - MUSCULOSKELETAL/RHEUMATOLOGICAL Hx Musculoskeletal Disorders: No Hx Falls: No - GASTROINTESTINAL Hx Gastrointestinal Disorders: Yes Hx Diverticulitis: Yes (colovesical fistula) - GENITOURINARY/GYNECOLOGICAL Hx Genitourinary Disorders: No Other/Comment: HX: COLOVESICAL FISTULA - PSYCHIATRIC Hx Psychophysiologic Disorder: No Hx Substance Use: No - SURGICAL HISTORY Hx Surgeries: Yes Hx Appendectomy: Yes (at age 8) - ANESTHESIA Hx Anesthesia: Yes Hx Anesthesia Reactions: No Hx Malignant Hyperthermia: No Has any member of the family had a problem w/ anesthesia?: No Meds Allergies/Adverse Reactions: Allergies Allergy/AdvReac Type Severity Reaction Status Date / Time No Known Allergies Allergy Verified 03/13/18 07:21 Physical Exam - Constitutional Appears: No Acute Distress - Head Exam Head Exam: NORMAL INSPECTION - Eye Exam Eye Exam: PERRL - ENT Exam ENT Exam: Normal Exam - Neck Exam Neck exam: Positive for: Normal Inspection - Respiratory Exam Respiratory Exam: NORMAL BREATHING PATTERN - Cardiovascular Exam Cardiovascular Exam: REGULAR RHYTHM - GI/Abdominal Exam GI & Abdominal Exam: Guarding (LLQ-suprapubic), Tenderness (LLQ>RLQ, suprapubic) - Extremities Exam Extremities exam: Positive for: normal inspection - Back Exam Back exam: NORMAL INSPECTION - Neurological Exam Neurological exam: Alert, Oriented x3 Additional comments: No motor/sensory deficit - Psychiatric Exam Psychiatric exam: Normal Mood - Skin Skin Exam: Warm Results - Vital Signs Recent Vital Signs: Last Vital Signs Temp 97.8 F 05/25/18 09:00 Pulse 66 05/25/18 09:00 Resp 20 05/25/18 09:00 BP 115/75 05/25/18 09:00 Pulse Ox 98 05/25/18 09:00 conrad Celis - Labs Result Diagrams: 05/27/18 05:35 05/27/18 05:35 Labs: Laboratory Results - last 24 hr 05/24/18 05/24/18 05/24/18 17:30 17:30 17:30 WBC 14.6 H D RBC 4.99 Hgb 15.7 Hct 45.7 MCV 91.6 D MCH 31.4 H MCHC 34.3 RDW 13.5 Plt Count 282 MPV 8.6 Neut % (Auto) 73.7 Lymph % (Auto) 16.4 L Lawrence % (Auto) 8.3 Eos % (Auto) 1.1 Baso % (Auto) 0.5 Neut # (Auto) 10.7 H Lymph # (Auto) 2.4 Lawrence # (Auto) 1.2 H Eos # (Auto) 0.2 Baso # (Auto) 0.1 PT INR APTT Sodium 137 Potassium 4.0 Chloride 99 Carbon Dioxide 27 Anion Gap 15 BUN 17 Creatinine 0.9 Est GFR ( Amer) > 60 Est GFR (Non-Af Amer) > 60 Random Glucose 98 Calcium 9.4 Total Bilirubin 0.6 AST 35 ALT 40 Alkaline Phosphatase 76 Total Protein 8.6 H Albumin 4.5 Globulin 4.1 H Albumin/Globulin Ratio 1.1 Triglycerides Cholesterol LDL Cholesterol Direct HDL Cholesterol Thyroxine (T4) TSH 3rd Generation Urine Color Yellow Urine Clarity Cloudy Urine pH 6.0 Ur Specific [place] 1.008 Urine Protein Negative Urine Glucose (UA) Neg Urine Ketones Negative Urine Blood Large Urine Nitrate Negative Urine Bilirubin Negative Urine Urobilinogen 0.2-1.0 Ur Leukocyte Esterase Large Urine RBC (Auto) 129 H Urine WBC Clumps (Auto) Few H Urine Microscopic WBC 268 H Urine Bacteria Rare 05/25/18 05/25/18 05/25/18 05:30 05:30 08:00 WBC 8.1 RBC 4.79 Hgb 15.3 Hct 44.0 MCV 92.0 MCH 31.9 H MCHC 34.6 RDW 13.4 Plt Count 276 MPV Neut % (Auto) Lymph % (Auto) Lawrence % (Auto) Eos % (Auto) Baso % (Auto) Neut # (Auto) Lymph # (Auto) Lawrence # (Auto) Eos # (Auto) Baso # (Auto) PT 14.0 H INR 1.2 APTT 34.7 Sodium 139 Potassium 4.4 Chloride 101 Carbon Dioxide 31 H Anion Gap 11 BUN 14 Creatinine 1.1 Est GFR ( Amer) > 60 Est GFR (Non-Af Amer) > 60 Random Glucose 87 Calcium 9.1 Total Bilirubin 1.2 AST 40 ALT 47 Alkaline Phosphatase 69 Total Protein 7.6 Albumin 3.9 Globulin 3.8 Albumin/Globulin Ratio 1.0 Triglycerides 83 Cholesterol 134 LDL Cholesterol Direct 93 HDL Cholesterol 29 L Thyroxine (T4) 8.32 TSH 3rd Generation 3.11 Urine Color Urine Clarity Urine pH Ur Specific [place] Urine Protein Urine Glucose (UA) Urine Ketones Urine Blood Urine Nitrate Urine Bilirubin Urine Urobilinogen Ur Leukocyte Esterase Urine RBC (Auto) Urine WBC Clumps (Auto) Urine Microscopic WBC Urine Bacteria reviewed J.P. - Imaging and Cardiology CT scan - abdomen Status: Report reviewed by me (Vimal) CT scan - pelvis Status: Report reviewed by me (Vimal) Assessment & Plan (1) Abdominal pain Status: Acute Priority: High (2) Acute diverticulitis Status: Acute Priority: High (3) Colovesical fistula Status: Acute Priority: High (4) Abdominal abscess Status: Acute Priority: High - Assessment and Plan (Free Text) Plan: F/U U C-S, Blood C-S, continue Merren, Zosyn, Morphine, Dextrose and rest of tx. Surgical consult. - Date & Time Date: 05/25/18 Time: 16:20
[2018-05-25] MEDS: Morphine 4 MG/ML VIAL IVP PRN (21:42)
--- NOTE | 2018-05-25 22:10 | CP.PCM.CON ---
History of Present Illness - History of Present Illness History of Present Illness: Surgery Consult note. Dr. Diaz 43yo M with PMHx of recurrent diverticulitis here for evaluation of LLQ abdominal pain. Patient states that he has had similar symptoms in the past and this is his third episode. He denies any associated fevers but does report chills. This episode of abd pain started 4 days ago and has gradually gotten worse. He has been tolerating diet at home, denies any N/V. No CP/SOB. He does report pneumaturia. He does report having bowel movements with some blood mixed in at times. PMHx: Recurrent Diverticulitis PSHx: Appendectomy, open Family Hx: Non-contributory Social Hx: Denies tobacco use, Denies ETOH use, Denies illicit drugs NKDA Review of Systems - Review of Systems All systems: reviewed and no additional remarkable complaints except - Constitutional Constitutional: As Per HPI, Chills. absent: Fever Past Patient History - Infectious Disease Hx of Infectious Diseases: None - Tetanus Immunizations Tetanus Immunization: Unknown - Past Medical History & Family History Past Medical History?: No Past Family History: Reviewed and not pertinent - Past Social History Smoking Status: Never Smoked Alcohol: None Drugs: Denies - CARDIAC Hx Cardiac Disorders: No - PULMONARY Hx Respiratory Disorders: No - NEUROLOGICAL Hx Neurological Disorder: No - HEENT Hx HEENT Problems: No - RENAL Hx Chronic Kidney Disease: No - ENDOCRINE/METABOLIC Hx Endocrine Disorders: No - HEMATOLOGICAL/ONCOLOGICAL Hx Blood Disorders: No Hx Human Immunodeficiency Virus (HIV): No - INTEGUMENTARY Hx Dermatological Problems: No - MUSCULOSKELETAL/RHEUMATOLOGICAL Hx Musculoskeletal Disorders: No Hx Falls: No - GASTROINTESTINAL Hx Gastrointestinal Disorders: Yes Hx Diverticulitis: Yes (with a colovesicular fistula) - GENITOURINARY/GYNECOLOGICAL Hx Genitourinary Disorders: No Other/Comment: HX: COLOVESICAL FISTULA - PSYCHIATRIC Hx Psychophysiologic Disorder: No Hx Substance Use: No - SURGICAL HISTORY Hx Surgeries: Yes Hx Appendectomy: Yes (at age 8) - ANESTHESIA Hx Anesthesia: Yes Hx Anesthesia Reactions: No Hx Malignant Hyperthermia: No Has any member of the family had a problem w/ anesthesia?: No Meds Allergies/Adverse Reactions: Allergies Allergy/AdvReac Type Severity Reaction Status Date / Time No Known Allergies Allergy Verified 03/13/18 07:21 - Medications Medications: Current Medications Piperacillin Sod/Tazobactam (Sod 4.5 gm/ Sodium Chloride) 100 mls @ 100 mls/hr IVPB Q8H [facility]; Protocol Last Admin: 05/25/18 21:16 Dose: 100 mls/hr Vancomycin HCl 1 gm/ Sodium (Chloride) 250 mls @ 166.667 mls/hr IVPB Q12H [facility]; Protocol Last Admin: 05/25/18 09:35 Dose: 166.667 mls/hr Dextrose/Sodium Chloride (Dextrose 5%/0.9% Ns 1000 Ml) 1,000 mls @ 80 mls/hr IV .[id number] [facility] Stop: 05/25/18 23:28 Last Admin: 05/25/18 12:16 Dose: 80 mls/hr Morphine Sulfate (Morphine) 2 mg IVP Q4 PRN PRN Reason: Pain, moderate (4-7) Last Admin: 05/25/18 21:42 Dose: 2 mg Physical Exam - Constitutional Appears: Non-toxic, No Acute Distress - Head Exam Head Exam: ATRAUMATIC, NORMAL INSPECTION, NORMOCEPHALIC - Eye Exam Eye Exam: EOMI, Normal appearance. absent: Scleral icterus - ENT Exam ENT Exam: Mucous Membranes Moist - Respiratory Exam Respiratory Exam: NORMAL BREATHING PATTERN. absent: Accessory Muscle Use, Respiratory Distress - Cardiovascular Exam Cardiovascular Exam: absent: JVD - GI/Abdominal Exam GI & Abdominal Exam: Soft. absent: Distended, Firm, Rebound, Rigid Additional comments: Left lower quadrant tenderness. No peritoneal signs - Extremities Exam Extremities exam: Positive for: normal inspection. Negative for: calf tenderness - Back Exam Back exam: NORMAL INSPECTION - Neurological Exam Neurological exam: Alert, Oriented x3 - Psychiatric Exam Psychiatric exam: Normal Affect, Normal Mood - Skin Skin Exam: Dry, Intact, Normal Color, Warm Results - Vital Signs Recent Vital Signs: Last Vital Signs Temp 98.3 F 05/25/18 17:00 Pulse 63 05/25/18 17:00 Resp 18 05/25/18 17:00 BP 105/68 05/25/18 17:00 Pulse Ox 98 05/25/18 16:41 - Labs Result Diagrams: 05/25/18 05:30 05/25/18 05:30 Labs: Laboratory Results - last 24 hr 05/25/18 05/25/18 05/25/18 05:30 05:30 08:00 WBC 8.1 RBC 4.79 Hgb 15.3 Hct 44.0 MCV 92.0 MCH 31.9 H MCHC 34.6 RDW 13.4 Plt Count 276 PT 14.0 H INR 1.2 APTT 34.7 Sodium 139 Potassium 4.4 Chloride 101 Carbon Dioxide 31 H Anion Gap 11 BUN 14 Creatinine 1.1 Est GFR ( Amer) > 60 Est GFR (Non-Af Amer) > 60 Random Glucose 87 Calcium 9.1 Total Bilirubin 1.2 AST 40 ALT 47 Alkaline Phosphatase 69 Total Protein 7.6 Albumin 3.9 Globulin 3.8 Albumin/Globulin Ratio 1.0 Triglycerides 83 Cholesterol 134 LDL Cholesterol Direct 93 HDL Cholesterol 29 L Thyroxine (T4) 8.32 TSH 3rd Generation 3.11 Assessment & Plan - Assessment and Plan (Free Text) Assessment: 43yo M with recurrent diverticulitis and concerns for colovesicular fistula Plan: - Continue IV Abx - Pain management - CLD - Will plan for OR next week Further recs as per Dr. Joe Leavitt PGY2 Surgery
[2018-05-25] MEDS ORDERED: Morphine 4 MG/ML VIAL IVP ONE (22:48)
[2018-05-26] MEDS: Piperacillin/Tazobact 4.5 GM in Sodium Chloride 0.9% 100 ML IVPB SCH (04:27)
[2018-05-26 07:55] LABS: BLOOD UREA NITROGEN 11 mg/dl (9-20); GFR NON-AFRICAN AMERICAN > 60
[2018-05-26 08:21] LABS: BASO # 0.1 K/uL (0.0-0.2); BASO % 0.6 % (0.0-2.0); EOS # 0.4 K/uL (0.0-0.7); EOS % 3.2 % (0.0-4.0); HEMOGLOBIN 14.7 g/dL (12.0-18.0); LYMPH % 16.7 % (20.0-40.0); MEAN CELL VOLUME 92.3 fl (80.0-94.0); MEAN CORPUSCULAR HEMOGLOBIN 31.7 pg (27.0-31.0); MEAN CORPUSCULAR HGB CONC 34.4 g/dL (33.0-37.0); MEAN PLATELET VOLUME 8.5 fl (7.2-11.7); MONO # 0.9 K/uL (0.0-0.8); MONO % 7.4 % (0.0-10.0); NEUT # 8.5 K/uL (1.8-7.0); NEUT % 72.1 % (50.0-75.0); NRBC % 0.1 % (0.0-0.0); RBC 4.63 Mil/uL (4.40-5.90); RED CELL DISTRIBUTION WIDTH 13.3 % (11.5-14.5); WHITE BLOOD COUNT 11.8 K/uL (4.8-10.8)
--- NOTE | 2018-05-26 08:59 | CP.PCM.PN ---
Subjective - Date & Time of Evaluation Date of Evaluation: 05/26/18 Time of Evaluation: 08:54 - Subjective Subjective: SURGERY NOTE FOR DR. RG 43M seen and examined at bedside. Patient continues to complain of pain in the supra pubic region, NPO since admission, denies fevers or chills. Objective - Vital Signs/Intake and Output Vital Signs (last 24 hours): Temp Pulse Resp BP Pulse Ox 97.7 F 72 20 99/65 L 97 05/26/18 08:04 05/26/18 08:04 05/26/18 08:04 05/26/18 08:04 05/26/18 08:04 - Medications Medications: Current Medications Piperacillin Sod/Tazobactam (Sod 4.5 gm/ Sodium Chloride) 100 mls @ 100 mls/hr IVPB Q8H [facility]; Protocol Last Admin: 05/26/18 04:27 Dose: 100 mls/hr Vancomycin HCl 1 gm/ Sodium (Chloride) 250 mls @ 166.667 mls/hr IVPB Q12H [facility]; Protocol Last Admin: 05/25/18 22:45 Dose: 166.667 mls/hr Morphine Sulfate (Morphine) 2 mg IVP Q4 PRN PRN Reason: Pain, moderate (4-7) Last Admin: 05/25/18 21:42 Dose: 2 mg - Labs Labs: 05/25/18 05:30 05/26/18 05:30 PT 14.0 Seconds (9.8-13.1) H 05/25/18 08:00 INR 1.2 05/25/18 08:00 APTT 34.7 Seconds (25.6-37.1) 05/25/18 08:00 - Constitutional Appears: Non-toxic, No Acute Distress - Respiratory Exam Respiratory Exam: Clear to Ausculation Bilateral, NORMAL BREATHING PATTERN - Cardiovascular Exam Cardiovascular Exam: REGULAR RHYTHM, +S1, +S2 - GI/Abdominal Exam GI & Abdominal Exam: Soft, Tenderness (Suprapubic moderate tenderness). 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 Joe Calvillo, PGY3
[2018-05-26] MEDS: Morphine 4 MG/ML VIAL IVP PRN (09:30)
[2018-05-26] MEDS ORDERED: Meropenem 1 GM in Sodium Chloride 0.9% 100 ML IVPB ONE (11:58)
--- NOTE | 2018-05-26 17:05 | CP.PCM.PN ---
Subjective - Date & Time of Evaluation Date of Evaluation: 05/26/18 Time of Evaluation: 12:05 - Subjective Subjective: F/U Diverticulitis. pain LLQ suprapubic Objective - Vital Signs/Intake and Output Vital Signs (last 24 hours): Temp Pulse Resp BP Pulse Ox 98.4 F 81 18 116/74 99 05/26/18 16:46 05/26/18 16:46 05/26/18 16:46 05/26/18 16:46 05/26/18 16:46 - Medications Medications: Current Medications Dextrose/Sodium Chloride (Dextrose 5%/0.9% Ns 1000 Ml) 1,000 mls @ 80 mls/hr IV .[id number] [facility] Stop: 05/27/18 15:13 Morphine Sulfate (Morphine) 2 mg IVP Q4 PRN PRN Reason: Pain, moderate (4-7) Last Admin: 05/26/18 09:30 Dose: 2 mg - Labs Labs: 05/26/18 05:30 05/26/18 05:30 PT 14.0 Seconds (9.8-13.1) H 05/25/18 08:00 INR 1.2 05/25/18 08:00 APTT 34.7 Seconds (25.6-37.1) 05/25/18 08:00 - Constitutional Appears: No Acute Distress - Head Exam Head Exam: NORMAL INSPECTION - Eye Exam Eye Exam: PERRL - ENT Exam ENT Exam: Normal Exam - Neck Exam Neck Exam: Normal Inspection - Respiratory Exam Respiratory Exam: NORMAL BREATHING PATTERN - Cardiovascular Exam Cardiovascular Exam: REGULAR RHYTHM - GI/Abdominal Exam GI & Abdominal Exam: Guarding (LLQ, suprapubic), Tenderness (LLQ>RLQ, suprapubic ) - Extremities Exam Extremities Exam: Normal Inspection - Back Exam Back Exam: NORMAL INSPECTION - Neurological Exam Neurological Exam: Alert, Oriented x3. absent: Motor Sensory Deficit - Psychiatric Exam Psychiatric exam: Normal Mood - Skin Skin Exam: Warm Assessment and Plan (1) Abdominal abscess Status: Acute (2) Acute diverticulitis Status: Acute (3) Colovesical fistula Status: Acute (4) UTI due to extended-spectrum beta lactamase (ESBL) producing Escherichia coli Status: Acute - Assessment and Plan (Free Text) Plan: U C-S E Coli ESBL, contact precautions, add Merren, f/u ID consult, Surgical consult appreciated, f/u Urology , GI consult, continue rest of treatment
[2018-05-26] MEDS ORDERED: metroNIDAZOLE 500mg/100ml NS 100 ML IVPB SCH (19:15)
--- NOTE | 2018-05-26 19:15 | CP.PCM.PN ---
Subjective - Date & Time of Evaluation Date of Evaluation: 05/26/18 Time of Evaluation: :19 - Subjective Subjective: I D NOTE PATIENT EXAMINED.EMR REVIEWED HAVE STARTED MEROPENEM AND FLAGYL Objective - Vital Signs/Intake and Output Vital Signs (last 24 hours): Temp Pulse Resp BP Pulse Ox 98.4 F 81 18 116/74 99 05/26/18 17:00 05/26/18 17:00 05/26/18 17:00 05/26/18 17:00 05/26/18 17:00 - Medications Medications: Current Medications Dextrose/Sodium Chloride (Dextrose 5%/0.9% Ns 1000 Ml) 1,000 mls @ 80 mls/hr IV .[id number] [facility] Stop: 05/27/18 15:13 Meropenem 1 gm/ Sodium (Chloride) 100 mls @ 100 mls/hr IVPB Q8 [facility]; Protocol Metronidazole (Flagyl 500mg/100ml Ns) 100 mls @ 100 mls/hr IVPB Q8 [facility]; Protocol Morphine Sulfate (Morphine) 2 mg IVP Q4 PRN PRN Reason: Pain, moderate (4-7) Last Admin: 05/26/18 09:30 Dose: 2 mg - Labs Labs: 05/26/18 05:30 05/26/18 05:30 PT 14.0 Seconds (9.8-13.1) H 05/25/18 08:00 INR 1.2 05/25/18 08:00 APTT 34.7 Seconds (25.6-37.1) 05/25/18 08:00
--- NOTE | 2018-05-26 20:27 | CP.PCM.PN ---
Subjective - Date & Time of Evaluation Date of Evaluation: 05/26/18 Time of Evaluation: 20:19 - Subjective Subjective: Pt was seen in february. and underwent cystoscopy which showed no evidence of fistula despite free air being seen on ct scan Pt presents again with uti symtoms Suggestif you feel there is a question if fistula present Repeat cat scan again with and without iv contrast a aand without oral contrast and re consult Dr whaley. Most probably pt will require bowel resection Hosay Objective - Vital Signs/Intake and Output Vital Signs (last 24 hours): Temp Pulse Resp BP Pulse Ox 98.4 F 81 18 116/74 99 05/26/18 17:00 05/26/18 17:00 05/26/18 17:00 05/26/18 17:00 05/26/18 17:00 - Medications Medications: Current Medications Dextrose/Sodium Chloride (Dextrose 5%/0.9% Ns 1000 Ml) 1,000 mls @ 80 mls/hr IV .[id number] [facility] Stop: 05/27/18 15:13 Meropenem 1 gm/ Sodium (Chloride) 100 mls @ 100 mls/hr IVPB Q8 [facility]; Protocol Metronidazole (Flagyl 500mg/100ml Ns) 100 mls @ 100 mls/hr IVPB Q8 [facility]; Protocol Morphine Sulfate (Morphine) 2 mg IVP Q4 PRN PRN Reason: Pain, moderate (4-7) Last Admin: 05/26/18 09:30 Dose: 2 mg - Labs Labs: 05/26/18 05:30 05/26/18 05:30 PT 14.0 Seconds (9.8-13.1) H 05/25/18 08:00 INR 1.2 05/25/18 08:00 APTT 34.7 Seconds (25.6-37.1) 05/25/18 08:00
[2018-05-27] MEDS: Meropenem 1 GM in Sodium Chloride 0.9% 100 ML IVPB SCH ×3 (00:18→16:35)
[2018-05-27] MEDS: Dextrose 5%/0.9% NS 1,000 ML IV SCH ×3 (02:08→21:21)
--- NOTE | 2018-05-27 04:09 | CON ---
DATE: 05/26/2018 INFECTIOUS DISEASE CONSULT HISTORY OF PRESENT ILLNESS: The patient is a 43-year-old male who was recently diagnosed with diverticulitis with a colovesical fistula. He came to emergency room with complaints of recurrent left lower quadrant, abdominal pain and urinary symptoms. He has a history of recent CT scan which showed a fistula as explained above. He was managed without surgery and his symptoms improved yesterday. He began experiencing burning with urination and noted frothy urine with pus and some stool. The patient also had abdominal pain where he had it previously. The patient then came to the emergency room for evaluation. He also had chills and sweats and fever. He had a bowel movement on 05/24/2018 prior to admission. I am seeing the patient for infectious disease consult because of a urine culture which grew E. coli that was ESBL positive but beyond that it was resistant to Cipro, ceftriaxone, cefepime, cefazolin and ampicillin, and also basically resistant to piperacillin The patient had good MICs to meropenem and ertapenem and also gentamicin. At this point in time, I stopped the other antibiotics and has started the patient on meropenem of which he received the dose earlier in the day but he will be meropenem 1 g IV piggyback every 8 hours and also Flagyl 500 mg IV piggyback every 8 hours. His WBC count is 14.6 on the and today is 11.8; hemoglobin is 14.7 today, platelets are 265. He has a normal shift at the moment and his creatinine is 1.1. GFR is greater than 60. Urine have 268 microscopic wbc and there are wbc clumps and rbcs. So at this point in time, the patient has a colovesical fistula, awaiting probable surgery. PLANS: At the moment, I am treating him with meropenem and with Flagyl. Yan Yi MD
[2018-05-27] MEDS: metroNIDAZOLE 500mg/100ml NS 100 ML IVPB SCH ×3 (05:53→21:21)
[2018-05-27 06:38] LABS: HEMOGLOBIN 14.2 g/dL (12.0-18.0); MEAN CELL VOLUME 91.6 fl (80.0-94.0); MEAN CORPUSCULAR HEMOGLOBIN 31.6 pg (27.0-31.0); MEAN CORPUSCULAR HGB CONC 34.5 g/dL (33.0-37.0); RBC 4.5 Mil/uL (4.40-5.90); RED CELL DISTRIBUTION WIDTH 13.3 % (11.5-14.5); WHITE BLOOD COUNT 6.1 K/uL (4.8-10.8)
[2018-05-27 06:47] LABS: BLOOD UREA NITROGEN 9 mg/dl (9-20); CALCIUM 9.1 mg/dL (8.4-10.2); GFR NON-AFRICAN AMERICAN > 60
--- NOTE | 2018-05-27 07:58 | CP.PCM.PN ---
Subjective - Date & Time of Evaluation Date of Evaluation: 05/27/18 Time of Evaluation: 07:56 - Subjective Subjective: SURGERY NOTE FOR DR. RG 43M seen and examined at bedside. Patient continues to have mild abdominal pain, denies nausea of vomiting. Expressed that he has had these symptoms multiple times in the past. Tolerated clears last night. Objective - Vital Signs/Intake and Output Vital Signs (last 24 hours): Temp Pulse Resp BP Pulse Ox 98.4 F 63 18 96/63 L 98 05/27/18 00:19 05/27/18 00:19 05/27/18 00:19 05/27/18 00:19 05/27/18 00:19 - Medications Medications: Current Medications Dextrose/Sodium Chloride (Dextrose 5%/0.9% Ns 1000 Ml) 1,000 mls @ 80 mls/hr IV .[id number] [facility] Stop: 05/27/18 15:13 Last Admin: 05/27/18 02:08 Dose: 80 mls/hr Meropenem 1 gm/ Sodium (Chloride) 100 mls @ 100 mls/hr IVPB Q8 [facility]; Protocol Last Admin: 05/27/18 00:18 Dose: 100 mls/hr Metronidazole (Flagyl 500mg/100ml Ns) 100 mls @ 100 mls/hr IVPB Q8@0600,1400,2200 [facility]; Protocol Last Admin: 05/27/18 05:53 Dose: 100 mls/hr Morphine Sulfate (Morphine) 2 mg IVP Q4 PRN PRN Reason: Pain, moderate (4-7) Last Admin: 05/26/18 09:30 Dose: 2 mg - Labs Labs: 05/27/18 05:35 05/27/18 05:35 PT 14.0 Seconds (9.8-13.1) H 05/25/18 08:00 INR 1.2 05/25/18 08:00 APTT 34.7 Seconds (25.6-37.1) 05/25/18 08:00 - Constitutional Appears: Non-toxic, No Acute Distress - Respiratory Exam Respiratory Exam: Clear to Ausculation Bilateral, NORMAL BREATHING PATTERN - Cardiovascular Exam Cardiovascular Exam: REGULAR RHYTHM, +S1, +S2 - GI/Abdominal Exam GI & Abdominal Exam: Soft. 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 Joe Calvillo, PGY3
[2018-05-27] MEDS ORDERED: Iohexol 300 100 ML IJ ONE (14:17)
[2018-05-27] MEDS ORDERED: Sodium Chloride 0.9% 50 ML IV ONE (14:18)
--- NOTE | 2018-05-27 15:31 | CT ---
Date of service: 05/27/2018 PROCEDURE: CT Abdomen and Pelvis with and without intravenous contrast HISTORY: colovesicular fistula COMPARISON: Abdomen and pelvis CT with oral contrast 05/24/2018. TECHNIQUE: Following intravenous contrast administration, a CT examination of the abdomen and pelvis performed from the domes of the diaphragms to the symphysis pubis with reformatted datasets provided not only axial but also sagittal and coronal series. Preliminary CT was performed prior to intravenous contrast administration. Coronal and sagittal reformats were generated. Contrast dose: Omnipaque 300, 95 cc Radiation dose: Total exam DLP = 624.07 mGy-cm. This CT exam was performed using one or more of the following dose reduction techniques: Automated exposure control, adjustment of the mA and/or kV according to patient size, and/or use of iterative reconstruction technique. FINDINGS: Preliminary CT through the abdomen pelvis reveals relatively prominent amount of oral contrast material identified throughout the mid and vast majority of the colon with exception of the mid and distal sigmoid colon. Minimal volume of oral contrast identified in the rectum. Extensive sigmoid colitis is identified presumably on the basis of diverticulitis. No oral contrast identified within the lumen of the urinary bladder at this time. The liver, spleen, pancreas, bilateral adrenal glands and kidneys stable in appearance. No interval free intra peritoneal gas collection or ascites. Abdominal aorta is normal in caliber once again with relatively prominent appearing prostate gland again evident. Bowel pattern appears stable. OTHER FINDINGS: None. IMPRESSION: No definitive pattern of oral contrast within the urinary bladder however oral contrast has not yet reached the sigmoid colon. Further delayed CT through the pelvis will be obtained to give time oral contrast to transit through the area in question. Given that is been days since contrast was administered, it would likely be proven to re-scanned the pelvis in the morning of 05/28/2018 after which time an addendum to this report can be provided. As an alternative, pelvis CT following rectal administration of diluted water-soluble contrast can be considered as well. Prominent segmental colitis or even neoplasm affecting the sigmoid colon is reiterated with potential abscess cephalad to the urinary bladder dome and with nondependent gas in the urinary bladder lumen.
--- NOTE | 2018-05-27 16:59 | CP.PCM.PN ---
Subjective - Date & Time of Evaluation Date of Evaluation: 05/27/18 Time of Evaluation: 14:00 - Subjective Subjective: F/U Diverticulitis. no AD, N/C of abdominal pain now Objective - Vital Signs/Intake and Output Vital Signs (last 24 hours): Temp Pulse Resp BP Pulse Ox 98.3 F 68 18 111/76 98 05/27/18 16:25 05/27/18 16:25 05/27/18 16:25 05/27/18 16:25 05/27/18 16:25 - Medications Medications: Current Medications Enoxaparin Sodium (Lovenox) 40 mg SC DAILY [facility]; Protocol Meropenem 1 gm/ Sodium (Chloride) 100 mls @ 100 mls/hr IVPB Q8 [facility]; Protocol Last Admin: 05/27/18 16:35 Dose: 100 mls/hr Metronidazole (Flagyl 500mg/100ml Ns) 100 mls @ 100 mls/hr IVPB Q8@0600,1400,2200 [facility]; Protocol Last Admin: 05/27/18 13:17 Dose: 100 mls/hr Morphine Sulfate (Morphine) 2 mg IVP Q4 PRN PRN Reason: Pain, moderate (4-7) Last Admin: 05/26/18 09:30 Dose: 2 mg - Labs Labs: 05/27/18 05:35 05/27/18 05:35 PT 14.0 Seconds (9.8-13.1) H 05/25/18 08:00 INR 1.2 05/25/18 08:00 APTT 34.7 Seconds (25.6-37.1) 05/25/18 08:00 - Constitutional Appears: No Acute Distress - Head Exam Head Exam: NORMAL INSPECTION - Eye Exam Eye Exam: PERRL - ENT Exam ENT Exam: Normal Exam - Neck Exam Neck Exam: Normal Inspection - Respiratory Exam Respiratory Exam: NORMAL BREATHING PATTERN - Cardiovascular Exam Cardiovascular Exam: REGULAR RHYTHM - GI/Abdominal Exam GI & Abdominal Exam: Guarding (LLQ-suprapubic), Tenderness (LLQ>RLQ, suprapubic), Normal Bowel Sounds. absent: Rebound - Extremities Exam Extremities Exam: Normal Inspection - Back Exam Back Exam: NORMAL INSPECTION - Neurological Exam Neurological Exam: Alert, Oriented x3. absent: Motor Sensory Deficit - Psychiatric Exam Psychiatric exam: Normal Mood - Skin Skin Exam: Warm Assessment and Plan (1) Abdominal abscess Status: Acute (2) Acute diverticulitis Status: Acute (3) Colovesical fistula Status: Acute (4) UTI due to extended-spectrum beta lactamase (ESBL) producing Escherichia coli Status: Acute - Assessment and Plan (Free Text) Plan: CT Abd/Pelvis, contact precautions, continue Merren, Flagyl, Surgical and GI f/u
--- NOTE | 2018-05-27 17:07 | RAD ---
Date of service: 05/27/2018 HISTORY: pre-op COMPARISON: 02/09/2018. FINDINGS: LUNGS: The lungs are well inflated and clear. PLEURA: No pleural effusions or pneumothorax. CARDIOVASCULAR: The heart is normal in size. No aortic atherosclerotic calcifications present. OSSEOUS STRUCTURES: Within normal limits for the patient's age. VISUALIZED UPPER ABDOMEN: Normal. OTHER FINDINGS: None. IMPRESSION: No active pulmonary disease.
--- NOTE | 2018-05-27 17:24 | CP.PCM.PN ---
Subjective - Date & Time of Evaluation Date of Evaluation: 05/27/18 Time of Evaluation: 17:23 Objective - Vital Signs/Intake and Output Vital Signs (last 24 hours): Temp Pulse Resp BP Pulse Ox 98.3 F 68 18 111/76 98 05/27/18 16:25 05/27/18 16:25 05/27/18 16:25 05/27/18 16:25 05/27/18 16:25 - Medications Medications: Current Medications Enoxaparin Sodium (Lovenox) 40 mg SC DAILY [facility]; Protocol Meropenem 1 gm/ Sodium (Chloride) 100 mls @ 100 mls/hr IVPB Q8 [facility]; Protocol Last Admin: 05/27/18 16:35 Dose: 100 mls/hr Metronidazole (Flagyl 500mg/100ml Ns) 100 mls @ 100 mls/hr IVPB Q8@0600,1400,2200 [facility]; Protocol Last Admin: 05/27/18 13:17 Dose: 100 mls/hr Morphine Sulfate (Morphine) 2 mg IVP Q4 PRN PRN Reason: Pain, moderate (4-7) Last Admin: 05/26/18 09:30 Dose: 2 mg - Labs Labs: 05/27/18 05:35 05/27/18 05:35 PT 14.0 Seconds (9.8-13.1) H 05/25/18 08:00 INR 1.2 05/25/18 08:00 APTT 34.7 Seconds (25.6-37.1) 05/25/18 08:00
[2018-05-27] MEDS: Enoxaparin 40 mg Syringe SC SCH (19:47)
--- NOTE | 2018-05-27 20:27 | CP.PCM.CON ---
History of Present Illness - History of Present Illness History of Present Illness: 43 yo male with h/o diverticulitis and colovesicular fistula admitted with LLQ abdominal pain. Patient has had episodes of diverticulitis in the past. Most recent colonoscopy was 03/18/2018 Review of Systems - Constitutional Constitutional: Chills - EENT Eyes: absent: Blurred Vision Ears: absent: Ear Discharge Nose/Mouth/Throat: absent: Epistaxis - Cardiovascular Cardiovascular: absent: Chest Pain - Gastrointestinal Gastrointestinal: As Per HPI, Abdominal Pain Past Patient History - Infectious Disease Hx of Infectious Diseases: None - Tetanus Immunizations Tetanus Immunization: Unknown - Past Medical History & Family History Past Medical History?: No - Past Social History Smoking Status: Never Smoked Alcohol: None Drugs: Denies Home Situation {Lives}: Alone - CARDIAC Hx Cardiac Disorders: No - PULMONARY Hx Respiratory Disorders: No - NEUROLOGICAL Hx Neurological Disorder: No - HEENT Hx HEENT Problems: No - RENAL Hx Chronic Kidney Disease: No - ENDOCRINE/METABOLIC Hx Endocrine Disorders: No - HEMATOLOGICAL/ONCOLOGICAL Hx Blood Disorders: No Hx Human Immunodeficiency Virus (HIV): No - INTEGUMENTARY Hx Dermatological Problems: No - MUSCULOSKELETAL/RHEUMATOLOGICAL Hx Musculoskeletal Disorders: No Hx Falls: No - GASTROINTESTINAL Hx Gastrointestinal Disorders: Yes Hx Diverticulitis: Yes (colovesical fistula) - GENITOURINARY/GYNECOLOGICAL Hx Genitourinary Disorders: No Other/Comment: HX: COLOVESICAL FISTULA - PSYCHIATRIC Hx Psychophysiologic Disorder: No Hx Substance Use: No - SURGICAL HISTORY Hx Surgeries: Yes Hx Appendectomy: Yes (at age 8) - ANESTHESIA Hx Anesthesia: Yes Hx Anesthesia Reactions: No Hx Malignant Hyperthermia: No Has any member of the family had a problem w/ anesthesia?: No Meds Allergies/Adverse Reactions: Allergies Allergy/AdvReac Type Severity Reaction Status Date / Time No Known Allergies Allergy Verified 03/13/18 07:21 - Medications Medications: Current Medications Enoxaparin Sodium (Lovenox) 40 mg SC DAILY [facility]; Protocol Last Admin: 05/27/18 19:47 Dose: 40 mg Meropenem 1 gm/ Sodium (Chloride) 100 mls @ 100 mls/hr IVPB Q8 [facility]; Protocol Last Admin: 05/27/18 16:35 Dose: 100 mls/hr Metronidazole (Flagyl 500mg/100ml Ns) 100 mls @ 100 mls/hr IVPB Q8@0600,1400,2200 [facility]; Protocol Last Admin: 05/27/18 13:17 Dose: 100 mls/hr Dextrose/Sodium Chloride (Dextrose 5%/0.9% Ns 1000 Ml) 1,000 mls @ 80 mls/hr IV .[id number] [facility] Stop: 05/28/18 19:48 Morphine Sulfate (Morphine) 2 mg IVP Q4 PRN PRN Reason: Pain, moderate (4-7) Last Admin: 05/26/18 09:30 Dose: 2 mg Physical Exam - Constitutional Appears: No Acute Distress - Head Exam Head Exam: ATRAUMATIC - Eye Exam Eye Exam: PERRL - ENT Exam ENT Exam: Mucous Membranes Moist - Neck Exam Neck exam: Positive for: Normal Inspection - Respiratory Exam Respiratory Exam: Clear to Auscultation Bilateral - Cardiovascular Exam Cardiovascular Exam: REGULAR RHYTHM, +S1, +S2 - GI/Abdominal Exam GI & Abdominal Exam: Normal Bowel Sounds, Soft, Tenderness Additional comments: marked LLQ tenderness Results - Vital Signs Recent Vital Signs: Last Vital Signs Temp 98.3 F 05/27/18 17:00 Pulse 68 05/27/18 16:25 Resp 18 05/27/18 16:25 BP 111/76 05/27/18 16:25 Pulse Ox 98 05/27/18 16:25 - Labs Result Diagrams: 05/27/18 05:35 05/27/18 05:35 Labs: Laboratory Results - last 24 hr 05/27/18 05/27/18 05:35 05:35 WBC 6.1 RBC 4.50 Hgb 14.2 Hct 41.3 MCV 91.6 MCH 31.6 H MCHC 34.5 RDW 13.3 Plt Count 280 Sodium 140 Potassium 4.1 Chloride 103 Carbon Dioxide 30 Anion Gap 11 BUN 9 Creatinine 0.9 Est GFR ( Amer) > 60 Est GFR (Non-Af Amer) > 60 Random Glucose 89 Calcium 9.1 - Imaging and Cardiology CT scan - abdomen Status: Report reviewed by me CT scan - pelvis Status: Report reviewed by me Assessment & Plan (1) Acute diverticulitis Assessment and Plan: Patient with LLQ pain and evidence on CT of diverticulitis. Most recent colonoscopy showed sigmoid diverticuli as well as a submucosal nodule at 30 cm which may have been the site of a previous fistula. No evidence of fluid or air leakage seen at this nodule and it was tattooed to allow for localization. Continue broad spectrum abx. Patient also being seen by Surgery and Urology. Status: Acute Priority: High
[2018-05-28] MEDS: Meropenem 1 GM in Sodium Chloride 0.9% 100 ML IVPB SCH ×3 (00:19→18:30)
[2018-05-28] MEDS: metroNIDAZOLE 500mg/100ml NS 100 ML IVPB SCH ×3 (05:07→21:56)
[2018-05-28 06:21] LABS: BASO % 0.7 % (0.0-2.0); EOS # 0.4 K/uL (0.0-0.7); EOS % 5.9 % (0.0-4.0); HEMOGLOBIN 14.3 g/dL (12.0-18.0); LYMPH # 2.4 K/uL (1.0-4.3); LYMPH % 35.5 % (20.0-40.0); MEAN CELL VOLUME 90.9 fl (80.0-94.0); MEAN CORPUSCULAR HEMOGLOBIN 31.4 pg (27.0-31.0); MEAN CORPUSCULAR HGB CONC 34.6 g/dL (33.0-37.0); MEAN PLATELET VOLUME 8.2 fl (7.2-11.7); MONO # 0.7 K/uL (0.0-0.8); MONO % 9.9 % (0.0-10.0); NEUT # 3.2 K/uL (1.8-7.0); NRBC % 0.1 % (0.0-0.0); RBC 4.56 Mil/uL (4.40-5.90); RED CELL DISTRIBUTION WIDTH 13.1 % (11.5-14.5); WHITE BLOOD COUNT 6.7 K/uL (4.8-10.8)
[2018-05-28 06:29] LABS: INR 1.3; PROTHROMBIN TIME 14.5 Seconds (9.8-13.1)
[2018-05-28 06:32] LABS: PARTIAL THROMBOPLASTIN TIME 38.8 Seconds (25.6-37.1)
[2018-05-28 06:33] LABS: ALBUMIN 3.5 g/dL (3.5-5.0); ALT/SGPT 37 U/L (21-72); AST/SGOT 29 U/L (17-59); BLOOD UREA NITROGEN 10 mg/dl (9-20); CALCIUM 8.8 mg/dL (8.4-10.2); GFR NON-AFRICAN AMERICAN > 60
--- NOTE | 2018-05-28 07:29 | CP.PCM.PN ---
Subjective - Date & Time of Evaluation Date of Evaluation: 05/28/18 Time of Evaluation: 07:27 - Subjective Subjective: Patient seen and examined. No acute events over night. Denies fever/chills. Reports some abdominal discomfort along left lower quadrant. Reports pneumaturia in AM. Objective - Vital Signs/Intake and Output Vital Signs (last 24 hours): Temp Pulse Resp BP Pulse Ox 97.7 F 61 18 109/64 98 05/28/18 00:03 05/28/18 00:03 05/28/18 00:03 05/28/18 00:03 05/28/18 00:03 - Medications Medications: Current Medications Enoxaparin Sodium (Lovenox) 40 mg SC DAILY [facility]; Protocol Last Admin: 05/27/18 19:47 Dose: 40 mg Meropenem 1 gm/ Sodium (Chloride) 100 mls @ 100 mls/hr IVPB Q8 [facility]; Protocol Last Admin: 05/28/18 00:19 Dose: 100 mls/hr Metronidazole (Flagyl 500mg/100ml Ns) 100 mls @ 100 mls/hr IVPB Q8@0 600,1400,2200 [facility]; Protocol Last Admin: 05/28/18 05:07 Dose: 100 mls/hr Dextrose/Sodium Chloride (Dextrose 5%/0.9% Ns 1000 Ml) 1,000 mls @ 80 mls/hr IV .[id number] [facility] Stop: 05/28/18 19:48 Last Admin: 05/27/18 21:21 Dose: 80 mls/hr Vancomycin HCl 1 gm/ Sodium (Chloride) 250 mls @ 166.667 mls/hr IVPB Q12 [facility]; Protocol Last Admin: 05/27/18 22:37 Dose: 166.667 mls/hr Morphine Sulfate (Morphine) 2 mg IVP Q4 PRN PRN Reason: Pain, moderate (4-7) Last Admin: 05/26/18 09:30 Dose: 2 mg - Labs Labs: 05/28/18 05:35 05/28/18 05:35 PT 14.5 Seconds (9.8-13.1) H 05/28/18 05:35 INR 1.3 05/28/18 05:35 APTT 38.8 Seconds (25.6-37.1) H 05/28/18 05:35 - Constitutional Appears: No Acute Distress - Head Exam Head Exam: NORMOCEPHALIC - Eye Exam Eye Exam: Normal appearance - ENT Exam ENT Exam: Mucous Membranes Moist - Respiratory Exam Respiratory Exam: NORMAL BREATHING PATTERN - Cardiovascular Exam Cardiovascular Exam: +S1, +S2 - GI/Abdominal Exam GI & Abdominal Exam: Soft, Tenderness. absent: Distended, Firm, Guarding, Rigid Additional comments: mild LLQ tenderness - Neurological Exam Neurological Exam: Alert, Awake, Oriented x3 - Psychiatric Exam Psychiatric exam: Normal Mood - Skin Skin Exam: Dry, Intact, Warm Assessment and Plan - Assessment and Plan (Free Text) Assessment: CLD NPO p MN IVF ABx per ID For ureteral stent placement Sunday05/29/[address] Frank' Bowel prep Sun Plan for OR 05/30/[address] Joe Carlos PGY3
[2018-05-28] MEDS: Enoxaparin 40 mg Syringe SC SCH (10:45)
--- NOTE | 2018-05-28 15:52 | CP.PCM.PN ---
Subjective - Date & Time of Evaluation Date of Evaluation: 05/28/18 Time of Evaluation: 10:30 - Subjective Subjective: F/U Diverticulitis. No A/D, no c/o of abdominal pain, passing gas while voiding. Objective - Vital Signs/Intake and Output Vital Signs (last 24 hours): Temp Pulse Resp BP Pulse Ox 97.5 F L 64 18 111/71 98 05/28/18 08:14 05/28/18 08:14 05/28/18 08:14 05/28/18 08:14 05/28/18 08:14 - Medications Medications: Current Medications Enoxaparin Sodium (Lovenox) 40 mg SC DAILY [facility]; Protocol Last Admin: 05/28/18 10:45 Dose: 40 mg Meropenem 1 gm/ Sodium (Chloride) 100 mls @ 100 mls/hr IVPB Q8 [facility]; Protocol Last Admin: 05/28/18 10:45 Dose: 100 mls/hr Metronidazole (Flagyl 500mg/100ml Ns) 100 mls @ 100 mls/hr IVPB Q8@0600,1400,2200 [facility]; Protocol Last Admin: 05/28/18 14:54 Dose: 100 mls/hr Dextrose/Sodium Chloride (Dextrose 5%/0.9% Ns 1000 Ml) 1,000 mls @ 80 mls/hr IV .[id number] [facility] Stop: 05/28/18 19:48 Last Admin: 05/27/18 21:21 Dose: 80 mls/hr Vancomycin HCl 1 gm/ Sodium (Chloride) 250 mls @ 166.667 mls/hr IVPB Q12 [facility]; Protocol Last Admin: 05/28/18 10:46 Dose: 166.667 mls/hr Morphine Sulfate (Morphine) 2 mg IVP Q4 PRN PRN Reason: Pain, moderate (4-7) Last Admin: 05/26/18 09:30 Dose: 2 mg - Labs Labs: 05/28/18 05:35 05/28/18 05:35 PT 14.5 Seconds (9.8-13.1) H 05/28/18 05:35 INR 1.3 05/28/18 05:35 APTT 38.8 Seconds (25.6-37.1) H 05/28/18 05:35 - Constitutional Appears: No Acute Distress - Head Exam Head Exam: NORMAL INSPECTION - Eye Exam Eye Exam: PERRL - ENT Exam ENT Exam: Normal Exam - Neck Exam Neck Exam: Normal Inspection - Respiratory Exam Respiratory Exam: NORMAL BREATHING PATTERN - Cardiovascular Exam Cardiovascular Exam: REGULAR RHYTHM - GI/Abdominal Exam GI & Abdominal Exam: Guarding (LLQ, suprapubic, tenderness LLQ>RLQ, suprapubic) - Extremities Exam Extremities Exam: Normal Inspection - Back Exam Back Exam: NORMAL INSPECTION - Neurological Exam Neurological Exam: Alert, Oriented x3. absent: Motor Sensory Deficit - Psychiatric Exam Psychiatric exam: Normal Mood - Skin Skin Exam: Warm Assessment and Plan (1) Abdominal abscess Status: Acute (2) Acute diverticulitis Status: Acute (3) Colovesical fistula Status: Acute (4) UTI due to extended-spectrum beta lactamase (ESBL) producing Escherichia coli Status: Acute - Assessment and Plan (Free Text) Plan: Continue Vanco, Merren and rest of Tx.
--- NOTE | 2018-05-28 19:02 | CARD ---
APPROVED REPORT Date of service: 05/28/2018 EKG Measurement Heart [id number] <Conclusion> Sinus bradycardia Voltage criteria for left ventricular hypertrophy Abnormal ECG
--- NOTE | 2018-05-28 19:07 | CP.PCM.PN ---
Subjective - Date & Time of Evaluation Date of Evaluation: 05/28/18 Time of Evaluation: 19:04 - Subjective Subjective: I D NOTE HAS POSITIVE BLOOD CULTURE FOR GRAM POSITIVE COCCI IN [employer](LIKELY STAPH ,COULD BE STAPH EPIDERMIDIS CARROL CONTAMINENT) FOR PRESENT AGREE c VANCOMYCIN COVERAGE. HAVE ORDERED F/U BLOOD CULTURE Objective - Vital Signs/Intake and Output Vital Signs (last 24 hours): Temp Pulse Resp BP Pulse Ox 98.2 F 58 L 18 112/76 98 05/28/18 16:11 05/28/18 16:11 05/28/18 16:11 05/28/18 16:11 05/28/18 16:11 - Medications Medications: Current Medications Enoxaparin Sodium (Lovenox) 40 mg SC DAILY [facility]; Protocol Last Admin: 05/28/18 10:45 Dose: 40 mg Meropenem 1 gm/ Sodium (Chloride) 100 mls @ 100 mls/hr IVPB Q8 [facility]; Protocol Last Admin: 05/28/18 18:30 Dose: 100 mls/hr Metronidazole (Flagyl 500mg/100ml Ns) 100 mls @ 100 mls/hr IVPB Q8@0600,1400,2200 [facility]; Protocol Last Admin: 05/28/18 14:54 Dose: 100 mls/hr Dextrose/Sodium Chloride (Dextrose 5%/0.9% Ns 1000 Ml) 1,000 mls @ 80 mls/hr IV .[id number] [facility] Stop: 05/28/18 19:48 Last Admin: 05/27/18 21:21 Dose: 80 mls/hr Vancomycin HCl 1 gm/ Sodium (Chloride) 250 mls @ 166.667 mls/hr IVPB Q12 [facility]; Protocol Last Admin: 05/28/18 10:46 Dose: 166.667 mls/hr Morphine Sulfate (Morphine) 2 mg IVP Q4 PRN PRN Reason: Pain, moderate (4-7) Last Admin: 05/26/18 09:30 Dose: 2 mg - Labs Labs: 05/28/18 05:35 05/28/18 05:35 PT 14.5 Seconds (9.8-13.1) H 05/28/18 05:35 INR 1.3 05/28/18 05:35 APTT 38.8 Seconds (25.6-37.1) H 05/28/18 05:35
[2018-05-29] MEDS: Meropenem 1 GM in Sodium Chloride 0.9% 100 ML IVPB SCH ×3 (01:47→16:50)
[2018-05-29] MEDS: metroNIDAZOLE 500mg/100ml NS 100 ML IVPB SCH ×3 (06:02→21:28)
[2018-05-29] MEDS: Enoxaparin 40 mg Syringe SC SCH (09:23)
[2018-05-29] MEDS: Dextrose 5%/0.9% NS 1,000 ML IV SCH (09:23)
--- NOTE | 2018-05-29 10:22 | CP.PCM.PN ---
Subjective - Date & Time of Evaluation Date of Evaluation: 05/29/18 Time of Evaluation: 10:18 - Subjective Subjective: The pt is re scheduled for stent insertion on sunday before colectomy. Monika Objective - Vital Signs/Intake and Output Vital Signs (last 24 hours): Temp Pulse Resp BP Pulse Ox 97.9 F 65 20 109/62 99 05/29/18 07:48 05/29/18 07:48 05/29/18 07:48 05/29/18 07:48 05/29/18 07:48 - Medications Medications: Current Medications Enoxaparin Sodium (Lovenox) 40 mg SC DAILY [facility]; Protocol Last Admin: 05/29/18 09:23 Dose: 40 mg Meropenem 1 gm/ Sodium (Chloride) 100 mls @ 100 mls/hr IVPB Q8 [facility]; Protocol Last Admin: 05/29/18 09:22 Dose: 100 mls/hr Metronidazole (Flagyl 500mg/100ml Ns) 100 mls @ 100 mls/hr IVPB Q8@0600,1400,2200 [facility]; Protocol Last Admin: 05/29/18 06:02 Dose: 100 mls/hr Vancomycin HCl 1 gm/ Sodium (Chloride) 250 mls @ 166.667 mls/hr IVPB Q12 [facility]; Protocol Last Admin: 05/28/18 20:35 Dose: 166.667 mls/hr Morphine Sulfate (Morphine) 2 mg IVP Q4 PRN PRN Reason: Pain, moderate (4-7) Last Admin: 05/26/18 09:30 Dose: 2 mg - Labs Labs: 05/28/18 05:35 05/28/18 05:35 PT 14.5 Seconds (9.8-13.1) H 05/28/18 05:35 INR 1.3 05/28/18 05:35 APTT 38.8 Seconds (25.6-37.1) H 05/28/18 05:35
--- NOTE | 2018-05-29 11:47 | CP.PCM.PN ---
Subjective - Date & Time of Evaluation Date of Evaluation: 05/29/18 Time of Evaluation: 11:47 - Subjective Subjective: SURGERY NOTE FOR DR. RG No acute events overnight, Patient seen by urology and GI. Objective - Vital Signs/Intake and Output Vital Signs (last 24 hours): Temp Pulse Resp BP Pulse Ox 97.9 F 65 20 109/62 99 05/29/18 07:48 05/29/18 07:48 05/29/18 07:48 05/29/18 07:48 05/29/18 07:48 - Medications Medications: Current Medications Enoxaparin Sodium (Lovenox) 40 mg SC DAILY [facility]; Protocol Last Admin: 05/29/18 09:23 Dose: 40 mg Meropenem 1 gm/ Sodium (Chloride) 100 mls @ 100 mls/hr IVPB Q8 [facility]; Protocol Last Admin: 05/29/18 09:22 Dose: 100 mls/hr Metronidazole (Flagyl 500mg/100ml Ns) 100 mls @ 100 mls/hr IVPB Q8@0600,1400,2200 [facility]; Protocol Last Admin: 05/29/18 06:02 Dose: 100 mls/hr Vancomycin HCl 1 gm/ Sodium (Chloride) 250 mls @ 166.667 mls/hr IVPB Q12 [facility]; Protocol Last Admin: 05/29/18 11:30 Dose: 166.667 mls/hr Morphine Sulfate (Morphine) 2 mg IVP Q4 PRN PRN Reason: Pain, moderate (4-7) Last Admin: 05/26/18 09:30 Dose: 2 mg - Labs Labs: 05/28/18 05:35 05/28/18 05:35 PT 14.5 Seconds (9.8-13.1) H 05/28/18 05:35 INR 1.3 05/28/18 05:35 APTT 38.8 Seconds (25.6-37.1) H 05/28/18 05:35 Assessment and Plan - Assessment and Plan (Free Text) Assessment: 43M with recurrent diverticulitis and colovesicular fistula Plan: - Pre-op patient for sunday - Seen by urology , per note and schedule, patient will have stents placed sunday before case - OR sunday for colectomy with likely colostomy, repair of fistula Discussed with Dr. Joe Calvillo, PGY3
[2018-05-29] MEDS ORDERED: Dextrose 5%/0.9% NS 1,000 ML IV SCH ×2 (13:00→15:40)
--- NOTE | 2018-05-29 13:53 | CP.PCM.PN ---
Subjective - Date & Time of Evaluation Date of Evaluation: 05/29/18 Time of Evaluation: 12:40 - Subjective Subjective: F/U Diverticulitis. Pt c/o of minimal lower quadrants /suprapubic pain, passing gas when voiding. Objective - Vital Signs/Intake and Output Vital Signs (last 24 hours): Temp Pulse Resp BP Pulse Ox 97.9 F 65 20 109/62 99 05/29/18 07:48 05/29/18 07:48 05/29/18 07:48 05/29/18 07:48 05/29/18 07:48 - Medications Medications: Current Medications Enoxaparin Sodium (Lovenox) 40 mg SC DAILY [facility]; Protocol Last Admin: 05/29/18 09:23 Dose: 40 mg Meropenem 1 gm/ Sodium (Chloride) 100 mls @ 100 mls/hr IVPB Q8 [facility]; Protocol Last Admin: 05/29/18 09:22 Dose: 100 mls/hr Metronidazole (Flagyl 500mg/100ml Ns) 100 mls @ 100 mls/hr IVPB Q8@0600,1400,2200 [facility]; Protocol Last Admin: 05/29/18 06:02 Dose: 100 mls/hr Vancomycin HCl 1 gm/ Sodium (Chloride) 250 mls @ 166.667 mls/hr IVPB Q12 [facility]; Protocol Last Admin: 05/29/18 11:30 Dose: 166.667 mls/hr Dextrose/Sodium Chloride (Dextrose 5%/0.9% Ns 1000 Ml) 1,000 mls @ 100 mls/hr IV .Q10H [facility] Stop: 05/30/18 12:49 Morphine Sulfate (Morphine) 2 mg IVP Q4 PRN PRN Reason: Pain, moderate (4-7) Last Admin: 05/26/18 09:30 Dose: 2 mg - Labs Labs: 05/28/18 05:35 05/28/18 05:35 PT 14.5 Seconds (9.8-13.1) H 05/28/18 05:35 INR 1.3 05/28/18 05:35 APTT 38.8 Seconds (25.6-37.1) H 05/28/18 05:35 - Constitutional Appears: No Acute Distress - Head Exam Head Exam: NORMAL INSPECTION - Eye Exam Eye Exam: PERRL - ENT Exam ENT Exam: Normal Exam - Neck Exam Neck Exam: Normal Inspection - Respiratory Exam Respiratory Exam: NORMAL BREATHING PATTERN - Cardiovascular Exam Cardiovascular Exam: REGULAR RHYTHM - GI/Abdominal Exam GI & Abdominal Exam: Guarding (LLQ, suprapubic), Tenderness (LLQ>RLQ, suprapubic) - Extremities Exam Extremities Exam: Normal Inspection - Back Exam Back Exam: NORMAL INSPECTION - Neurological Exam Neurological Exam: Alert, Oriented x3. 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
[2018-05-30] MEDS: Meropenem 1 GM in Sodium Chloride 0.9% 100 ML IVPB SCH ×3 (00:41→18:45)
[2018-05-30] MEDS: metroNIDAZOLE 500mg/100ml NS 100 ML IVPB SCH ×2 (05:26→18:37)
[2018-05-30] MEDS ORDERED: Phytonadione 10 mg/ml Inj (Adult) IV ONE (07:37)
[2018-05-30] MEDS ORDERED: Phytonadione 10 MG in Sodium Chloride 0.9% 50 ML IV ONE (07:45)
[2018-05-30] MEDS: Enoxaparin 40 mg Syringe SC SCH (09:22)
[2018-05-30] MEDS ORDERED: Peg-Electrolyte Oral Soln 4L (Golytely) PO ONE (10:12)
--- NOTE | 2018-05-30 10:40 | CP.PCM.PN ---
Subjective - Date & Time of Evaluation Date of Evaluation: 05/30/18 Time of Evaluation: 10:38 - Subjective Subjective: SURGERY NOTE FOR DR. RG 43M seen and examined at bedside. Patient resting comfortable. States pain controlled with medication. Tolerating liquid diet, no nausea or vomiting. Continues to pass air during urination. Objective - Vital Signs/Intake and Output Vital Signs (last 24 hours): Temp Pulse Resp BP Pulse Ox 97.8 F 56 L 18 96/60 L 98 05/30/18 07:40 05/30/18 07:40 05/30/18 07:40 05/30/18 07:40 05/30/18 07:40 - Medications Medications: Current Medications Acetaminophen (Tylenol 325mg Tab) 650 mg PO Q4 PRN PRN Reason: Pain, Mild (1-3) Last Admin: 05/29/18 22:48 Dose: 650 mg Enoxaparin Sodium (Lovenox) 40 mg SC DAILY [facility]; Protocol Last Admin: 05/30/18 09:22 Dose: 40 mg Erythromycin (Erythocin) 1,000 mg PO ONCE ONE; Protocol Stop: 05/30/18 16:01 Erythromycin (Erythocin) 1,000 mg PO ONCE ONE; Protocol Stop: 05/30/18 17:01 Erythromycin (Erythocin) 1,000 mg PO ONCE ONE; Protocol Stop: 05/31/18 04:01 Meropenem 1 gm/ Sodium (Chloride) 100 mls @ 100 mls/hr IVPB Q8 [facility]; Protocol Last Admin: 05/30/18 09:24 Dose: 100 mls/hr Metronidazole (Flagyl 500mg/100ml Ns) 100 mls @ 100 mls/hr IVPB Q8@0600,1400,2200 [facility]; Protocol Last Admin: 05/30/18 05:26 Dose: 100 mls/hr Vancomycin HCl 1 gm/ Sodium (Chloride) 250 mls @ 166.667 mls/hr IVPB Q12 [facility]; Protocol Last Admin: 05/30/18 09:23 Dose: 166.667 mls/hr Dextrose/Sodium Chloride (Dextrose 5%/0.9% Ns 1000 Ml) 1,000 mls @ 80 mls/hr IV .[id number] [facility] Stop: 05/30/18 12:49 Morphine Sulfate (Morphine) 2 mg IVP Q4 PRN PRN Reason: Pain, moderate (4-7) Last Admin: 05/26/18 09:30 Dose: 2 mg Neomycin Sulfate (Neomycin Tab) 1,000 mg PO ONCE ONE Stop: 05/30/18 16:01 Neomycin Sulfate (Neomycin Tab) 1,000 mg PO ONCE ONE Stop: 05/30/18 17:01 Neomycin Sulfate (Neomycin Tab) 1,000 mg PO ONCE ONE Stop: 05/31/18 04:01 - Labs Labs: 05/28/18 05:35 05/28/18 05:35 PT 14.5 Seconds (9.8-13.1) H 05/28/18 05:35 INR 1.3 05/28/18 05:35 APTT 38.8 Seconds (25.6-37.1) H 05/28/18 05:35 - Constitutional Appears: Non-toxic, No Acute Distress - Respiratory Exam Respiratory Exam: Clear to Ausculation Bilateral, NORMAL BREATHING PATTERN - Cardiovascular Exam Cardiovascular Exam: REGULAR RHYTHM, +S1, +S2 - GI/Abdominal Exam GI & Abdominal Exam: Soft. absent: Distended, Firm, Guarding, Rigid, Tenderness, Rebound - Extremities Exam Extremities Exam: absent: Pedal Edema, Tenderness - Neurological Exam Neurological Exam: Alert, Awake - Skin Skin Exam: Dry, Intact, Normal Color, Warm Assessment and Plan - Assessment and Plan (Free Text) Assessment: 43M with diverticulitis and colovesicular fistula, possible abscess Plan: - Pre op patient - NPO after midnight - Bowel prep - Vitamin K - AM labs - Receiving ureteral stents tomorrow - OR tomorrow for Colectomy, fistula repair, colostomy Further recs discuss with Dr. Joe Calvillo, PGY3
[2018-05-30] MEDS: Dextrose 5%/0.9% NS 1,000 ML IV SCH (12:36)
--- NOTE | 2018-05-30 13:03 | CP.PCM.PN ---
<Aditi San - Last Filed: 05/30/18 13:11> Subjective - Date & Time of Evaluation Date of Evaluation: 05/30/18 Time of Evaluation: 11:00 - Subjective Subjective: GI progress note for Dr. Carter Pt seen and examined at bedside this AM. Patient denies any pain. Surgery team is planning to take patient to OR tomorrow for colectomy, fistula repair and colostomy. Objective - Vital Signs/Intake and Output Vital Signs (last 24 hours): Temp Pulse Resp BP Pulse Ox 97.8 F 56 L 18 96/60 L 98 05/30/18 07:40 05/30/18 07:40 05/30/18 07:40 05/30/18 07:40 05/30/18 07:40 - Medications Medications: Current Medications Acetaminophen (Tylenol 325mg Tab) 650 mg PO Q4 PRN PRN Reason: Pain, Mild (1-3) Last Admin: 05/29/18 22:48 Dose: 650 mg Enoxaparin Sodium (Lovenox) 40 mg SC DAILY [facility]; Protocol Last Admin: 05/30/18 09:22 Dose: 40 mg Erythromycin (Erythocin) 1,000 mg PO ONCE ONE; Protocol Stop: 05/30/18 16:01 Erythromycin (Erythocin) 1,000 mg PO ONCE ONE; Protocol Stop: 05/30/18 17:01 Erythromycin (Erythocin) 1,000 mg PO ONCE ONE; Protocol Stop: 05/31/18 04:01 Meropenem 1 gm/ Sodium (Chloride) 100 mls @ 100 mls/hr IVPB Q8 [facility]; Protocol Last Admin: 05/30/18 09:24 Dose: 100 mls/hr Metronidazole (Flagyl 500mg/100ml Ns) 100 mls @ 100 mls/hr IVPB Q8@0600,1400,2200 [facility]; Protocol Last Admin: 05/30/18 05:26 Dose: 100 mls/hr Vancomycin HCl 1 gm/ Sodium (Chloride) 250 mls @ 166.667 mls/hr IVPB Q12 [facility]; Protocol Last Admin: 05/30/18 09:23 Dose: 166.667 mls/hr Morphine Sulfate (Morphine) 2 mg IVP Q4 PRN PRN Reason: Pain, moderate (4-7) Last Admin: 01/13/19 09:30 Dose: 2 mg Neomycin Sulfate (Neomycin Tab) 1,000 mg PO ONCE ONE Stop: 05/30/18 16:01 Neomycin Sulfate (Neomycin Tab) 1,000 mg PO ONCE ONE Stop: 05/30/18 17:01 Neomycin Sulfate (Neomycin Tab) 1,000 mg PO ONCE ONE Stop: 05/31/18 04:01 - Labs Labs: 05/28/18 05:35 05/28/18 05:35 PT 14.5 Seconds (9.8-13.1) H 05/28/18 05:35 INR 1.3 05/28/18 05:35 APTT 38.8 Seconds (25.6-37.1) H 05/28/18 05:35 - Constitutional Appears: Well, Non-toxic, No Acute Distress - Head Exam Head Exam: ATRAUMATIC, NORMOCEPHALIC - Eye Exam Eye Exam: Normal appearance. absent: Conjunctival injection, Scleral icterus - ENT Exam ENT Exam: Mucous Membranes Moist, Normal Oropharynx - Respiratory Exam Respiratory Exam: NORMAL BREATHING PATTERN. absent: Accessory Muscle Use, Respiratory Distress - GI/Abdominal Exam GI & Abdominal Exam: absent: Distended - Extremities Exam Extremities Exam: absent: Pedal Edema - Neurological Exam Neurological Exam: Alert, Awake, Oriented x3 - Psychiatric Exam Psychiatric exam: Normal Affect, Normal Mood - Skin Skin Exam: Dry, Intact, Normal Color, Warm Assessment and Plan - Assessment and Plan (Free Text) Assessment: 43M with colovesicular fistula Plan: Prior endoscopy had a nodule in the rectum at 30cm which could have been an area of previous fistula--area was tattooed at that time and biopsies revealed granulation tissue with chronic inflammation No GI intervention indicated at this time--follow up surgery and urology recommendations. Will F/U patient after surgery tomorrow Discussed with Dr. Carter <Rodrick Dupree - Last Filed: 05/30/18 17:30> Objective - Vital Signs/Intake and Output Vital Signs (last 24 hours): Temp Pulse Resp BP Pulse Ox 98 F 73 18 136/83 99 05/30/18 16:29 05/30/18 16:29 05/30/18 16:29 05/30/18 16:29 05/30/18 16:29 - Medications Medications: Current Medications Acetaminophen (Tylenol 325mg Tab) 650 mg PO Q4 PRN PRN Reason: Pain, Mild (1-3) Last Admin: 05/29/18 22:48 Dose: 650 mg Enoxaparin Sodium (Lovenox) 40 mg SC DAILY [facility]; Protocol Last Admin: 05/30/18 09:22 Dose: 40 mg Erythromycin (Erythocin) 1,000 mg PO ONCE ONE; Protocol Stop: 05/31/18 04:01 Meropenem 1 gm/ Sodium (Chloride) 100 mls @ 100 mls/hr IVPB Q8 [facility]; Protocol Last Admin: 05/30/18 09:24 Dose: 100 mls/hr Metronidazole (Flagyl 500mg/100ml Ns) 100 mls @ 100 mls/hr IVPB Q8@0600,1400,2 200 [facility]; Protocol Last Admin: 05/30/18 05:26 Dose: 100 mls/hr Vancomycin HCl 1 gm/ Sodium (Chloride) 250 mls @ 166.667 mls/hr IVPB Q12 [facility]; Protocol Last Admin: 05/30/18 09:23 Dose: 166.667 mls/hr Morphine Sulfate (Morphine) 2 mg IVP Q4 PRN PRN Reason: Pain, moderate (4-7) Last Admin: 05/26/18 09:30 Dose: 2 mg Neomycin Sulfate (Neomycin Tab) 1,000 mg PO ONCE ONE Stop: 05/31/18 04:01 - Labs Labs: 05/28/18 05:35 05/28/18 05:35 PT 14.5 Seconds (9.8-13.1) H 05/28/18 05:35 INR 1.3 05/28/18 05:35 APTT 38.8 Seconds (25.6-37.1) H 05/28/18 05:35 Assessment and Plan (1) Abdominal abscess Status: Acute (2) Acute diverticulitis Status: Acute (3) Colovesical fistula Status: Acute (4) UTI due to extended-spectrum beta lactamase (ESBL) producing Escherichia coli Status: Acute
--- NOTE | 2018-05-30 15:09 | CP.PCM.PN ---
Subjective - Date & Time of Evaluation Date of Evaluation: 05/30/18 Time of Evaluation: 11:00 - Subjective Subjective: F/U Diverticulitis. passing gas trough urethra voiding in the morning no abdominal pain, patient on clear fluids Objective - Vital Signs/Intake and Output Vital Signs (last 24 hours): Temp Pulse Resp BP Pulse Ox 97.8 F 56 L 18 96/60 L 98 05/30/18 07:40 05/30/18 07:40 05/30/18 07:40 05/30/18 07:40 05/30/18 07:40 - Medications Medications: Current Medications Acetaminophen (Tylenol 325mg Tab) 650 mg PO Q4 PRN PRN Reason: Pain, Mild (1-3) Last Admin: 05/29/18 22:48 Dose: 650 mg Enoxaparin Sodium (Lovenox) 40 mg SC DAILY ROSARIO; Protocol Last Admin: 05/30/18 09:22 Dose: 40 mg Erythromycin (Erythocin) 1,000 mg PO ONCE ONE; Protocol Stop: 05/30/18 16:01 Erythromycin (Erythocin) 1,000 mg PO ONCE ONE; Protocol Stop: 05/30/18 17:01 Erythromycin (Erythocin) 1,000 mg PO ONCE ONE; Protocol Stop: 05/31/18 04:01 Meropenem 1 gm/ Sodium (Chloride) 100 mls @ 100 mls/hr IVPB Q8 ROSARIO; Protocol Last Admin: 05/30/18 09:24 Dose: 100 mls/hr Metronidazole (Flagyl 500mg/100ml Ns) 100 mls @ 100 mls/hr IVPB Q8@0600,1400,2200 ROSARIO; Protocol Last Admin: 05/30/18 05:26 Dose: 100 mls/hr Vancomycin HCl 1 gm/ Sodium (Chloride) 250 mls @ 166.667 mls/hr IVPB Q12 ROSARIO; Protocol Last Admin: 05/30/18 09:23 Dose: 166.667 mls/hr Morphine Sulfate (Morphine) 2 mg IVP Q4 PRN PRN Reason: Pain, moderate (4-7) Last Admin: 05/26/18 09:30 Dose: 2 mg Neomycin Sulfate (Neomycin Tab) 1,000 mg PO ONCE ONE Stop: 05/30/18 16:01 Neomycin Sulfate (Neomycin Tab) 1,000 mg PO ONCE ONE Stop: 05/30/18 17:01 Neomycin Sulfate (Neomycin Tab) 1,000 mg PO ONCE ONE Stop: 05/31/18 04:01 - Labs Labs: 05/28/18 05:35 05/28/18 05:35 PT 14.5 Seconds (9.8-13.1) H 05/28/18 05:35 INR 1.3 05/28/18 05:35 APTT 38.8 Seconds (25.6-37.1) H 05/28/18 05:35 - Constitutional Appears: No Acute Distress - Head Exam Head Exam: NORMAL INSPECTION - Eye Exam Eye Exam: PERRL - ENT Exam ENT Exam: Normal Exam - Neck Exam Neck Exam: Normal Inspection - Respiratory Exam Respiratory Exam: NORMAL BREATHING PATTERN - Cardiovascular Exam Cardiovascular Exam: REGULAR RHYTHM - GI/Abdominal Exam GI & Abdominal Exam: Soft, Tenderness (minimal LLQ, suprapubic), Normal Bowel Sounds. absent: Distended, Guarding, Rebound - Extremities Exam Extremities Exam: Normal Inspection - Back Exam Back Exam: NORMAL INSPECTION - Neurological Exam Neurological Exam: Alert, Oriented x3. absent: Motor Sensory Deficit - Psychiatric Exam Psychiatric exam: Normal Mood - Skin Skin Exam: Warm Assessment and Plan (1) Abdominal abscess Status: Acute (2) Acute diverticulitis Status: Acute (3) Colovesical fistula Status: Acute (4) UTI due to extended-spectrum beta lactamase (ESBL) producing Escherichia coli Status: Acute - Assessment and Plan (Free Text) Plan: continue Merren, Vanco, Flagyl IV, Surgical f/u appreciated, for OR in am
[2018-05-30] MEDS ORDERED: Erythromycin Stearat 250 mg Tab PO ONE ×2 (16:00→17:00)
[2018-05-30] MEDS: Lactated Ringer's 1,000 ML IV SCH ×2 (18:46→18:54)
[2018-05-30 21:29] LABS: INR 1.3; PROTHROMBIN TIME 15.1 Seconds (9.8-13.1)
[2018-05-30 21:32] LABS: PARTIAL THROMBOPLASTIN TIME 37.2 Seconds (25.6-37.1)
[2018-05-31] MEDS: Meropenem 1 GM in Sodium Chloride 0.9% 100 ML IVPB SCH ×4 (01:11→20:11)
[2018-05-31] MEDS: metroNIDAZOLE 500mg/100ml NS 100 ML IVPB SCH ×3 (02:18→20:25)
[2018-05-31] MEDS ORDERED: Erythromycin Stearat 250 mg Tab PO ONE (04:00)
[2018-05-31] MEDS ORDERED: ERYTHROMYCIN IVPB ONE (04:00)
[2018-05-31] MEDS ORDERED: SODIUM CHLORIDE 0.9% IVPB ONE (04:00)
[2018-05-31 06:57] LABS: BASO # 0.1 K/uL (0.0-0.2); BASO % 0.5 % (0.0-2.0); EOS # 0.2 K/uL (0.0-0.7); EOS % 1.6 % (0.0-4.0); HEMOGLOBIN 15.1 g/dL (12.0-18.0); LYMPH % 19.9 % (20.0-40.0); MEAN CELL VOLUME 90.8 fl (80.0-94.0); MEAN CORPUSCULAR HEMOGLOBIN 31.9 pg (27.0-31.0); MEAN CORPUSCULAR HGB CONC 35.1 g/dL (33.0-37.0); MEAN PLATELET VOLUME 8.9 fl (7.2-11.7); MONO % 9.3 % (0.0-10.0); NEUT # 7.1 K/uL (1.8-7.0); NEUT % 68.7 % (50.0-75.0); NRBC % 0.1 % (0.0-0.0); RBC 4.74 Mil/uL (4.40-5.90); RED CELL DISTRIBUTION WIDTH 13.1 % (11.5-14.5); WHITE BLOOD COUNT 10.3 K/uL (4.8-10.8)
[2018-05-31 07:25] LABS: ALBUMIN 3.6 g/dL (3.5-5.0); ALT/SGPT 55 U/L (21-72); AST/SGOT 62 U/L (17-59); BLOOD UREA NITROGEN 6 mg/dl (9-20); CALCIUM 9.1 mg/dL (8.4-10.2); GFR NON-AFRICAN AMERICAN > 60
[2018-05-31] MEDS ORDERED: Phytonadione 10 mg/ml Inj (Adult) IV ONE (07:54)
[2018-05-31] MEDS ORDERED: Phytonadione 10 MG in Sodium Chloride 0.9% 50 ML IV ONE (08:00)
[2018-05-31] MEDS: Lactated Ringer's 1,000 ML IV SCH ×2 (10:48→20:25)
--- NOTE | 2018-05-31 11:44 | US ---
Date of service: 05/30/2018 PROCEDURE: Left Upper Extremity Venous Duplex Exam HISTORY: pain in left forearm, cool to touch PRIORS: None. TECHNIQUE: Left upper extremity, internal jugular, subclavian, axillary, brachial, ulnar, radial, basilic and upper cephalic veins were evaluated. Flow was assessed with color Doppler, compressibility, assessment of phasic flow and augmentation response. Report prepared by x ray technologist. FINDINGS: LEFT: 1. Internal Jugular: 1.1. Compressibility - Fully compressible: Thrombus - None : Flow - Phasic: Augmentation -Normal: Reflux - None. 2. Subclavian: 2.1. Compressibility - Fully compressible: Thrombus - None : Flow - Phasic: Augmentation -Normal: Reflux - None. 3. Axillary: 3.1. Compressibility - Fully compressible: Thrombus - None : Flow - Phasic: Augmentation -Normal: Reflux - None. 4. Brachial: 4.1. Compressibility - Fully compressible: Thrombus - None: Flow - Phasic: Augmentation -Normal: Reflux - None. 5. Cephalic: 5.1. Compressibility - Fully compressible: Thrombus - None: Flow - Phasic: Augmentation -Normal: Reflux - None. 6. Basilic: 6.1. Compressibility - Fully compressible: Thrombus - None: Flow - Phasic: Augmentation -Normal: Reflux - None. OTHER FINDINGS: Left: None. IMPRESSION: Left: No evidence of vein thrombosis of the left upper extremity with excellent venous flow. Normal valve function noted of the left side. Normal venous flow noted in the right internal jugular and right subclavian veins. Concordant findings (preliminary report) provided by [facility].
--- NOTE | 2018-05-31 12:30 | CP.PCM.PN ---
Subjective - Date & Time of Evaluation Date of Evaluation: 05/31/18 - Subjective Subjective: F/U Abdominal abscess/Diverticulitis. no AD, no abdominal pain, NPO Objective - Vital Signs/Intake and Output Vital Signs (last 24 hours): Temp Pulse Resp BP Pulse Ox 98.1 F 70 18 108/66 97 05/31/18 08:01 05/31/18 08:01 05/31/18 08:01 05/31/18 08:01 05/31/18 08:01 - Medications Medications: Current Medications Acetaminophen (Tylenol 325mg Tab) 650 mg PO Q4 PRN PRN Reason: Pain, Mild (1-3) Last Admin: 05/29/18 22:48 Dose: 650 mg Enoxaparin Sodium (Lovenox) 40 mg SC DAILY ROSARIO; Protocol Last Admin: 05/30/18 09:22 Dose: 40 mg Meropenem 1 gm/ Sodium (Chloride) 100 mls @ 100 mls/hr IVPB Q8 ROSARIO; Protocol Last Admin: 05/31/18 10:49 Dose: 100 mls/hr Vancomycin HCl 1 gm/ Sodium (Chloride) 250 mls @ 166.667 mls/hr IVPB Q12 ROSARIO; Protocol Last Admin: 05/30/18 20:54 Dose: 166.667 mls/hr Lactated Ringer's (Lactated Ringer's) 1,000 mls @ 125 mls/hr IV .Q8H ROSARIO Last Admin: 05/31/18 10:48 Dose: Not Given Metronidazole (Flagyl 500mg/100ml Ns) 100 mls @ 100 mls/hr IVPB Q8@0200,1000,1800 ROSARIO; Protocol Last Admin: 05/31/18 02:18 Dose: 100 mls/hr Morphine Sulfate (Morphine) 2 mg IVP Q4 PRN PRN Reason: Pain, moderate (4-7) Last Admin: 05/26/18 09:30 Dose: 2 mg - Labs Labs: 05/31/18 05:45 05/31/18 05:45 PT 15.1 Seconds (9.8-13.1) H 05/30/18 21:00 INR 1.3 05/30/18 21:00 APTT 37.2 Seconds (25.6-37.1) H 05/30/18 21:00 - Constitutional Appears: No Acute Distress - Head Exam Head Exam: NORMAL INSPECTION - Eye Exam Eye Exam: PERRL - ENT Exam ENT Exam: Normal Exam - Neck Exam Neck Exam: Normal Inspection - Respiratory Exam Respiratory Exam: NORMAL BREATHING PATTERN - Cardiovascular Exam Cardiovascular Exam: REGULAR RHYTHM - GI/Abdominal Exam GI & Abdominal Exam: Soft, Tenderness (minimal LLQ), Normal Bowel Sounds. absent: Distended, Guarding, Rigid, Rebound - Extremities Exam Extremities Exam: Normal Inspection - Back Exam Back Exam: NORMAL INSPECTION - Neurological Exam Neurological Exam: Alert, Oriented x3. absent: Motor Sensory Deficit - Psychiatric Exam Psychiatric exam: Normal Mood - Skin Skin Exam: Warm Assessment and Plan (1) Abdominal abscess Status: Acute (2) Acute diverticulitis Status: Acute (3) Colovesical fistula Status: Acute (4) UTI due to extended-spectrum beta lactamase (ESBL) producing Escherichia coli Status: Acute - Assessment and Plan (Free Text) Plan: OR today, continue Merren, Flagyl, Vanco and rest of treatment
[2018-05-31] MEDS ORDERED: Propofol 10 mg/ml Inj (20 ML) ONE (13:49)
[2018-05-31] MEDS ORDERED: Rocuronium 10 mg/ml (5 ml) ONE ×3 (13:50→15:50)
[2018-05-31] MEDS ORDERED: Lidocaine 1% 5ml Abboject ONE (13:50)
[2018-05-31] MEDS ORDERED: Neostigmine 1:1000 (1 mg/ml) Inj ONE (13:50)
[2018-05-31] MEDS ORDERED: Midazolam 2 MG/2 ML VIAL ONE (13:50)
[2018-05-31] MEDS ORDERED: Lidocaine 4% (Laryng-O-Jet) Kit MM ONE (13:52)
[2018-05-31] MEDS ORDERED: Succinylcholine 200 mg/10 ml Inj IV ONE (13:52)
[2018-05-31] MEDS ORDERED: SODIUM CHLORIDE 0.9% IJ ONE (14:26)
[2018-05-31] MEDS ORDERED: Gentamicin 80mg/50ml NS 0 MG/0 ML BAG IVPB ONE (14:26)
[2018-05-31] MEDS ORDERED: BUPIVACAINE HCL 0.5% IJ ONE (14:26)
[2018-05-31] MEDS ORDERED: Iohexol 300 100 ML IJ ONE (14:27)
[2018-05-31] MEDS ORDERED: Lactated Ringer's 1,000 ML IV ONE ×3 (14:37→18:00)
[2018-05-31] MEDS ORDERED: Vancomycin 1 g Inj ONE (14:45)
[2018-05-31] MEDS ORDERED: ePHEDrine 50 mg/ml Inj ONE (15:10)
[2018-05-31] MEDS ORDERED: Lactated Ringer's 1,000 ML IV SCH (15:15)
[2018-05-31] MEDS ORDERED: Bupivacaine 0.5% Inj(30mL) ONE (15:43)
--- NOTE | 2018-05-31 16:50 | RAD ---
Date of service: 05/31/2018 PROCEDURE: Intraoperative Fluoroscopy. HISTORY: CYSTOSCOPY FINDINGS: Fluoroscopic assistance was provided for retrograde bilateral stent placement. Please refer to the operative report from TOMMY Lucas. Total fluoroscopic time (continuous mode) utilized during the procedure twelve seconds.
[2018-05-31] MEDS: HYDROmorphone 0.5 mg/0.5 ml ISec IVP PRN ×4 (18:46→19:17)
--- NOTE | 2018-05-31 19:12 | PCM.SURG1 ---
Surgeon's Initial Post Op Note - Surgeon's Notes Surgeon: Kishor Diaz MD Single St[employer] Operator: Barry Calvillo, PGY3. Matt Cannon, PGY3 Pre-Operative Diagnosis: Diverticulitis, Colovesicular fistula Operative Findings: Chronic colonic inflammation, chronic cystitis Post-Operative Diagnosis: Diverticulitis, colovesicular fistula Operation Performed: Exploratory laparotomy, sigmoid colectomy, creation of end colostomy, repair of bladder Specimen/Specimens Removed: sigmoid colon, piece of bladder wall Estimated Blood Loss: EBL {In ML}: 150 Date of Surgery/Procedure: 05/31/18 Time of Surgery/Procedure: 15:30
--- NOTE | 2018-05-31 20:02 | PN ---
DATE: 05/31/2018 I spoke to both the daughter and the patient. I advised again that he needs an operation for colovesical fistula. The patient is having renal catheter was placed by Dr. Frank. CAT is reviewed showing incredible inflammation of the transverse, sigmoid with a large abscess in the pelvis and a large prostate. We are going to do multiple manipulations, hopefully do a sigmoid resection and disconnect the bladder and remove the abscess; however, this could be very difficult very impossible. At the very least, he is going to need a colostomy.. At the very most, he will have resection of the sigmoid with Issac's procedure with drains as necessary. We might end up just doing a colostomy basically to come back later and do the operation, but for now, we will plan laparotomy we have to do. The patient is advised that chances of bleeding, infection, heart and lung problems and almost certainly needing a colostomy. Kishor Diaz MD
[2018-05-31 21:45] LABS: HEMOGLOBIN 14.7 g/dL (12.0-18.0); MEAN CELL VOLUME 93.4 fl (80.0-94.0); MEAN CORPUSCULAR HEMOGLOBIN 30.7 pg (27.0-31.0); MEAN CORPUSCULAR HGB CONC 32.9 g/dL (33.0-37.0); RBC 4.79 Mil/uL (4.40-5.90); RED CELL DISTRIBUTION WIDTH 13.2 % (11.5-14.5); WHITE BLOOD COUNT 18.1 K/uL (4.8-10.8)
[2018-05-31 21:55] LABS: BLOOD UREA NITROGEN 9 mg/dl (9-20); CALCIUM 8.5 mg/dL (8.4-10.2); GFR NON-AFRICAN AMERICAN > 60
[2018-05-31] MEDS ORDERED: Magnesium Sulfate 2 gm/50 ml 2 GM/50 ML BAG IVPB ONE (23:25)
[2018-06-01] MEDS: Meropenem 1 GM in Sodium Chloride 0.9% 100 ML IVPB SCH ×3 (00:51→16:50)
[2018-06-01] MEDS: metroNIDAZOLE 500mg/100ml NS 100 ML IVPB SCH ×3 (02:23→18:21)
[2018-06-01] MEDS: Lactated Ringer's 1,000 ML IV SCH ×7 (02:51→21:01)
[2018-06-01 07:39] LABS: BASO % 0.1 % (0.0-2.0); EOS % 0.1 % (0.0-4.0); HEMOGLOBIN 14.7 g/dL (12.0-18.0); LYMPH # 1.3 K/uL (1.0-4.3); LYMPH % 8.3 % (20.0-40.0); MEAN CELL VOLUME 93.7 fl (80.0-94.0); MEAN CORPUSCULAR HEMOGLOBIN 31.4 pg (27.0-31.0); MEAN CORPUSCULAR HGB CONC 33.5 g/dL (33.0-37.0); MEAN PLATELET VOLUME 9.4 fl (7.2-11.7); MONO % 6.6 % (0.0-10.0); NEUT % 84.9 % (50.0-75.0); PLATELET COUNT 302 K/uL (130-400); WHITE BLOOD COUNT 15.3 K/uL (4.8-10.8)
[2018-06-01 07:48] LABS: BLOOD UREA NITROGEN 9 mg/dl (9-20); CALCIUM 8.5 mg/dL (8.4-10.2); GFR NON-AFRICAN AMERICAN > 60
--- NOTE | 2018-06-01 08:24 | CP.PCM.PN ---
Subjective - Date & Time of Evaluation Date of Evaluation: 06/01/18 Time of Evaluation: 05:45 - Subjective Subjective: Patient seen and examined. No acute events over night. Reports incisional site pain.Stoma is pink. No flatus/BM. 1650/ 12 hrs UOP. Serosanguinous drainage from FRANCINE drain. Objective - Vital Signs/Intake and Output Vital Signs (last 24 hours): Temp Pulse Resp BP Pulse Ox 100.0 F H 95 H 18 112/70 99 06/01/18 08:08 06/01/18 08:08 06/01/18 08:08 06/01/18 08:08 06/01/18 08:08 Intake and Output: 06/01/18 06/01/18 06:59 18:59 Intake Total 100 Output Total 800 Balance -700 - Medications Medications: Current Medications Acetaminophen (Tylenol 325mg Tab) 650 mg PO Q4 PRN PRN Reason: Pain, Mild (1-3) Last Admin: 06/01/18 05:57 Dose: 650 mg Enoxaparin Sodium (Lovenox) 40 mg SC DAILY ROSARIO; Protocol Last Admin: 05/30/18 09:22 Dose: 40 mg Hydromorphone HCl (Dilaudid) 1 mg IVP Q4 PRN PRN Reason: Pain, severe (8-10) Last Admin: 05/31/18 21:38 Dose: 1 mg Meropenem 1 gm/ Sodium (Chloride) 100 mls @ 100 mls/hr IVPB Q8 ROSARIO; Protocol Last Admin: 06/01/18 00:51 Dose: 100 mls/hr Vancomycin HCl 1 gm/ Sodium (Chloride) 250 mls @ 166.667 mls/hr IVPB Q12 ROSARIO; Protocol Last Admin: 05/31/18 21:43 Dose: 166.667 mls/hr Lactated Ringer's (Lactated Ringer's) 1,000 mls @ 125 mls/hr IV .Q8H ROSARIO Last Admin: 06/01/18 06:03 Dose: 125 mls/hr Metronidazole (Flagyl 500mg/100ml Ns) 100 mls @ 100 mls/hr IVPB Q8@0200,1000,1800 ROSARIO; Protocol Last Admin: 06/01/18 02:23 Dose: 100 mls/hr Bupivacaine HCl 150 ml/ Sodium (Chloride) 600 mls @ 5 mls/hr IJ .Q24H ONE Stop: 06/01/18 14:25 Last Admin: 05/31/18 19:25 Dose: 0 mls - Labs Labs: 06/01/18 05:30 06/01/18 05:30 PT 15.1 Seconds (9.8-13.1) H 05/30/18 21:00 INR 1.3 05/30/18 21:00 APTT 37.2 Seconds (25.6-37.1) H 05/30/18 21:00 - Constitutional Appears: No Acute Distress - Head Exam Head Exam: NORMOCEPHALIC - Eye Exam Eye Exam: EOMI, Normal appearance - ENT Exam ENT Exam: Mucous Membranes Moist - Respiratory Exam Respiratory Exam: NORMAL BREATHING PATTERN - Cardiovascular Exam Cardiovascular Exam: +S1, +S2 - GI/Abdominal Exam GI & Abdominal Exam: Soft, Tenderness - Neurological Exam Neurological Exam: Alert, Awake, Oriented x3 - Psychiatric Exam Psychiatric exam: Normal Mood - Skin Skin Exam: Dry, Intact, Warm Assessment and Plan - Assessment and Plan (Free Text) Assessment: 43F with colovesicular fistula s/p Issac's POD1 Plan: Clear liquid diet IVF C/w ABx Analgesic prn Anti-emetic prn Encourage incentive spirometer use OOB to chair Encourage ambulation I&O's DVT ppx Chow will remain in place Further recs per Dr. Joe Carlos PGY3
[2018-06-01] MEDS: Enoxaparin 40 mg Syringe SC SCH (11:35)
[2018-06-01 12:56] LABS: BANDS 6 % (0-2); LYMPHOCYTE 8 % (20-50); MONOCYTE 8 % (0-10); NEUTROPHIL 78 % (42-75); PLATELET ESTIMATE NORMAL (NORMAL); TOTAL CELLS COUNTED 100
--- NOTE | 2018-06-01 13:37 | CP.PCM.PN ---
Subjective - Date & Time of Evaluation Date of Evaluation: 06/01/18 Time of Evaluation: 12:00 - Subjective Subjective: F/U abdominal abscess. Diverticulitis. ambulating with Family help, minimal post surgical abdominal pain, at times requiring pain medication Objective - Vital Signs/Intake and Output Vital Signs (last 24 hours): Temp Pulse Resp BP Pulse Ox 100.0 F H 95 H 18 112/70 99 06/01/18 08:08 06/01/18 08:08 06/01/18 08:08 06/01/18 08:08 06/01/18 08:08 Intake and Output: 06/01/18 06/01/18 06:59 18:59 Intake Total 100 Output Total 800 Balance -700 - Medications Medications: Current Medications Acetaminophen (Tylenol 325mg Tab) 650 mg PO Q4 PRN PRN Reason: Pain, Mild (1-3) Last Admin: 06/01/18 05:57 Dose: 650 mg Enoxaparin Sodium (Lovenox) 40 mg SC DAILY ROSARIO; Protocol Last Admin: 06/01/18 11:35 Dose: 40 mg Hydromorphone HCl (Dilaudid) 1 mg IVP Q4 PRN PRN Reason: Pain, severe (8-10) Last Admin: 06/01/18 09:15 Dose: 1 mg Meropenem 1 gm/ Sodium (Chloride) 100 mls @ 100 mls/hr IVPB Q8 ROSARIO; Protocol Last Admin: 06/01/18 09:16 Dose: 100 mls/hr Vancomycin HCl 1 gm/ Sodium (Chloride) 250 mls @ 166.667 mls/hr IVPB Q12 ROSARIO; Protocol Last Admin: 06/01/18 11:34 Dose: 166.667 mls/hr Lactated Ringer's (Lactated Ringer's) 1,000 mls @ 125 mls/hr IV .Q8H ROSARIO Last Admin: 06/01/18 11:40 Dose: Not Given Metronidazole (Flagyl 500mg/100ml Ns) 100 mls @ 100 mls/hr IVPB Q8@0200,1000,1800 ROSARIO; Protocol Last Admin: 06/01/18 10:17 Dose: 100 mls/hr Bupivacaine HCl 150 ml/ Sodium (Chloride) 600 mls @ 5 mls/hr IJ .Q24H ONE Stop: 06/01/18 14:25 Last Admin: 05/31/18 19:25 Dose: 0 mls - Labs Labs: 06/01/18 05:30 06/01/18 05:30 PT 15.1 Seconds (9.8-13.1) H 05/30/18 21:00 INR 1.3 05/30/18 21:00 APTT 37.2 Seconds (25.6-37.1) H 05/30/18 21:00 - Constitutional Appears: No Acute Distress - Head Exam Head Exam: NORMAL INSPECTION - Eye Exam Eye Exam: PERRL - ENT Exam ENT Exam: Normal Exam - Neck Exam Neck Exam: Normal Inspection - Respiratory Exam Respiratory Exam: NORMAL BREATHING PATTERN - Cardiovascular Exam Cardiovascular Exam: REGULAR RHYTHM - GI/Abdominal Exam GI & Abdominal Exam: Soft, Tenderness (mild tenderness surgical incision, Colostomy, serosanguineous drainage FRANCINE drain ), Normal Bowel Sounds. absent: Distended, Guarding, Rebound - Exam Additional comments: Chow Cath - Extremities Exam Extremities Exam: Normal Inspection - Back Exam Back Exam: NORMAL INSPECTION - Neurological Exam Neurological Exam: Alert, Oriented x3. absent: Motor Sensory Deficit - Psychiatric Exam Psychiatric exam: Normal Mood - Skin Skin Exam: Warm Assessment and Plan (1) History of open sigmoidectomy Assessment & Plan: s/p Status: Acute (2) S/P bladder repair Status: Acute (3) S/P laparotomy Status: Acute (4) Abdominal abscess Status: Acute (5) Colostomy in place Status: Acute (6) Acute diverticulitis Status: Acute (7) Colovesical fistula Status: Acute (8) UTI due to extended-spectrum beta lactamase (ESBL) producing Escherichia coli - Assessment and Plan (Free Text) Plan: continue Merren, Flagyl, Morphine an rest of treatment
[2018-06-02] MEDS: Meropenem 1 GM in Sodium Chloride 0.9% 100 ML IVPB SCH ×3 (00:29→17:35)
[2018-06-02] MEDS: metroNIDAZOLE 500mg/100ml NS 100 ML IVPB SCH ×3 (02:00→17:35)
[2018-06-02] MEDS: Lactated Ringer's 1,000 ML IV SCH ×4 (02:44→17:35)
[2018-06-02 08:14] LABS: BASO # 0.1 K/uL (0.0-0.2); BASO % 0.4 % (0.0-2.0); EOS # 0.1 K/uL (0.0-0.7); EOS % 0.4 % (0.0-4.0); HEMOGLOBIN 13.4 g/dL (12.0-18.0); LYMPH # 2.1 K/uL (1.0-4.3); LYMPH % 14.1 % (20.0-40.0); MEAN CORPUSCULAR HGB CONC 33.7 g/dL (33.0-37.0); MEAN PLATELET VOLUME 8.9 fl (7.2-11.7); MONO # 1.2 K/uL (0.0-0.8); MONO % 7.9 % (0.0-10.0); NEUT # 11.6 K/uL (1.8-7.0); NEUT % 77.2 % (50.0-75.0); RBC 4.33 Mil/uL (4.40-5.90); RED CELL DISTRIBUTION WIDTH 13.5 % (11.5-14.5)
[2018-06-02 08:34] LABS: BLOOD UREA NITROGEN 7 mg/dl (9-20); GFR NON-AFRICAN AMERICAN > 60
[2018-06-02 08:35] LABS: CALCIUM 8.9 mg/dL (8.4-10.2)
--- NOTE | 2018-06-02 08:36 | CP.PCM.PN ---
Subjective - Date & Time of Evaluation Date of Evaluation: 06/02/18 Time of Evaluation: 07:00 - Subjective Subjective: Surgery progress note for Dr. Diaz Pt seen and examiend at bedside this AM. Patient complains of some abdominal pain when he eats liquids as well as some upper back pain but no nausea or vomiting, fevers or chills. Scant serosanguingous output from the ostomy as well as the bonnie drain. Bloody urine from the portillo. Objective - Vital Signs/Intake and Output Vital Signs (last 24 hours): Temp Pulse Resp BP Pulse Ox 98.1 F 92 H 20 117/80 96 06/02/18 08:19 06/02/18 08:19 06/02/18 08:19 06/02/18 08:19 06/02/18 08:19 Intake and Output: 06/02/18 06/02/18 06:59 18:59 Intake Total 2340 Output Total 2390 Balance -50 - Medications Medications: Current Medications Acetaminophen (Tylenol 325mg Tab) 650 mg PO Q4 PRN PRN Reason: Pain, Mild (1-3) Last Admin: 06/01/18 05:57 Dose: 650 mg Enoxaparin Sodium (Lovenox) 40 mg SC DAILY ROSARIO; Protocol Last Admin: 06/01/18 11:35 Dose: 40 mg Hydromorphone HCl (Dilaudid) 1 mg IVP Q4 PRN PRN Reason: Pain, severe (8-10) Last Admin: 06/02/18 01:04 Dose: 1 mg Meropenem 1 gm/ Sodium (Chloride) 100 mls @ 100 mls/hr IVPB Q8 ROSARIO; Protocol Last Admin: 06/02/18 00:29 Dose: 100 mls/hr Lactated Ringer's (Lactated Ringer's) 1,000 mls @ 125 mls/hr IV .Q8H ROSARIO Last Admin: 06/02/18 05:26 Dose: 125 mls/hr Metronidazole (Flagyl 500mg/100ml Ns) 100 mls @ 100 mls/hr IVPB Q8@0200,1000,1800 ROSARIO; Protocol Last Admin: 06/02/18 02:00 Dose: 100 mls/hr Oxycodone/Acetaminophen (Percocet 5/325 Mg Tab) 1 tab PO Q4 PRN PRN Reason: Pain, moderate (4-7) Stop: 06/05/18 06:19 - Labs Labs: 06/02/18 07:45 06/01/18 05:30 PT 15.1 Seconds (9.8-13.1) H 05/30/18 21:00 INR 1.3 05/30/18 21:00 APTT 37.2 Seconds (25.6-37.1) H 05/30/18 21:00 - Constitutional Appears: Well, Non-toxic, No Acute Distress - Head Exam Head Exam: ATRAUMATIC, NORMOCEPHALIC - Eye Exam Eye Exam: Normal appearance. absent: Conjunctival injection, Scleral icterus - ENT Exam ENT Exam: Mucous Membranes Moist, Normal Oropharynx - Respiratory Exam Respiratory Exam: NORMAL BREATHING PATTERN. absent: Accessory Muscle Use, Respiratory Distress - Cardiovascular Exam Cardiovascular Exam: RRR - GI/Abdominal Exam GI & Abdominal Exam: Soft, Tenderness (RLQ and LLQ). absent: Distended Additional comments: Dressing over midline incision C/D/I, lower dressing with moderate amount serosanuinous drainage. ostomy pink, patent, and productive of scan serosanguinous fluid, easily digitized - Extremities Exam Extremities Exam: absent: Calf Tenderness, Pedal Edema, Tenderness - Neurological Exam Neurological Exam: Alert, Awake, Oriented x3 - Psychiatric Exam Psychiatric exam: Normal Affect, Normal Mood - Skin Skin Exam: Dry, Normal Color, Warm Assessment and Plan - Assessment and Plan (Free Text) Assessment: 43M with colovesicular fistula POD#2 s/p pallavi's procedure Plan: Continue to trend CBC and BMP, mg, phos--supplement as needed Continue to monitor strict intake and output Continue CLD PRN pain and nausea medication Continue to encourage ambulation and Incentive spirometer use Continue antibiotics Discussed with Dr. Diaz, Aditi San, PGY2
[2018-06-02] MEDS ORDERED: Morphine 4 MG/ML VIAL IVP PRN (08:38)
[2018-06-02] MEDS ORDERED: Magnesium Sulfate 1 gm in D5W 1 GM/100 ML BAG IVPB ONE (08:44)
[2018-06-02] MEDS ORDERED: Potassium & Sodium Phosphate PO ONE (08:44)
[2018-06-02] MEDS: Oxycodone/Acetaminophen 5/325 mg Tab PO PRN ×2 (08:50→19:46)
[2018-06-02] MEDS: Enoxaparin 40 mg Syringe SC SCH (08:53)
[2018-06-02] MEDS ORDERED: BUPIVACAINE HCL 0.5% IJ ONE ×2 (09:33→09:36)
[2018-06-02] MEDS ORDERED: SODIUM CHLORIDE 0.9% IJ ONE ×2 (09:33→09:36)
--- NOTE | 2018-06-02 14:24 | CP.PCM.PN ---
Subjective - Date & Time of Evaluation Date of Evaluation: 06/02/18 Time of Evaluation: 11:30 - Subjective Subjective: F/U Abdominal abscess. Diverticulitis. ambulating in the room with help of family, mild post surgical pain, mild abdominal pain drinking fluid Objective - Vital Signs/Intake and Output Vital Signs (last 24 hours): Temp Pulse Resp BP Pulse Ox 98.1 F 92 H 20 117/80 96 06/02/18 08:19 06/02/18 08:19 06/02/18 08:19 06/02/18 08:19 06/02/18 08:19 Intake and Output: 06/02/18 06/02/18 06:59 18:59 Intake Total 2340 Output Total 2390 Balance -50 - Medications Medications: Current Medications Acetaminophen (Tylenol 325mg Tab) 650 mg PO Q4 PRN PRN Reason: Pain, Mild (1-3) Last Admin: 06/01/18 05:57 Dose: 650 mg Enoxaparin Sodium (Lovenox) 40 mg SC DAILY ROSARIO; Protocol Last Admin: 06/02/18 08:53 Dose: 40 mg Famotidine (Pepcid) 20 mg PO DAILY ROSARIO Last Admin: 06/02/18 12:54 Dose: 20 mg Meropenem 1 gm/ Sodium (Chloride) 100 mls @ 100 mls/hr IVPB Q8 ROSARIO; Protocol Last Admin: 06/02/18 08:52 Dose: 100 mls/hr Lactated Ringer's (Lactated Ringer's) 1,000 mls @ 125 mls/hr IV .Q8H ROSARIO Last Admin: 06/02/18 12:20 Dose: Not Given Metronidazole (Flagyl 500mg/100ml Ns) 100 mls @ 100 mls/hr IVPB Q8@0200,1000,1800 ROSARIO; Protocol Last Admin: 06/02/18 09:00 Dose: 100 mls/hr Bupivacaine HCl 150 ml/ Sodium (Chloride) 600 mls @ 7 mls/hr IJ .Q24H ONE Stop: 06/03/18 09:32 Last Admin: 06/02/18 12:20 Dose: 7 mls/hr Morphine Sulfate (Morphine) 4 mg IVP Q4 PRN PRN Reason: Pain, severe (8-10) Oxycodone/Acetaminophen (Percocet 5/325 Mg Tab) 1 tab PO Q4 PRN PRN Reason: Pain, moderate (4-7) Stop: 06/05/18 06:19 Last Admin: 06/02/18 08:50 Dose: 1 tab - Labs Labs: 06/02/18 07:45 06/02/18 07:45 PT 15.1 Seconds (9.8-13.1) H 05/30/18 21:00 INR 1.3 05/30/18 21:00 APTT 37.2 Seconds (25.6-37.1) H 05/30/18 21:00 - Constitutional Appears: No Acute Distress - Head Exam Head Exam: NORMAL INSPECTION - Eye Exam Eye Exam: PERRL - ENT Exam ENT Exam: Normal Exam - Neck Exam Neck Exam: Normal Inspection - Respiratory Exam Respiratory Exam: NORMAL BREATHING PATTERN - Cardiovascular Exam Cardiovascular Exam: REGULAR RHYTHM - GI/Abdominal Exam GI & Abdominal Exam: Soft, Tenderness (mild tenderness surgical incision, Colostomy, serosanguineous drainage FRANCINE drain), Normal Bowel Sounds. absent: Distended, Guarding, Rebound - Exam Additional comments: Chow cath - Extremities Exam Extremities Exam: Normal Inspection - Neurological Exam Neurological Exam: Alert, Oriented x3. absent: Motor Sensory Deficit - Psychiatric Exam Psychiatric exam: Normal Mood - Skin Skin Exam: Warm Assessment and Plan (1) S/P laparotomy Status: Acute (2) History of open sigmoidectomy Assessment & Plan: s/p Status: Acute (3) S/P bladder repair Status: Acute (4) Colostomy in place Status: Acute (5) Abdominal abscess Status: Acute (6) Acute diverticulitis Status: Acute (7) Colovesical fistula Status: Acute (8) UTI due to extended-spectrum beta lactamase (ESBL) producing Escherichia coli Status: Acute - Assessment and Plan (Free Text) Plan: continue Merren, Flagyl, on Percocet po, continue rest of treatment, Surgical f/u appreciated
[2018-06-03] MEDS: Meropenem 1 GM in Sodium Chloride 0.9% 100 ML IVPB SCH ×3 (00:49→17:31)
[2018-06-03] MEDS: metroNIDAZOLE 500mg/100ml NS 100 ML IVPB SCH ×3 (02:14→17:31)
[2018-06-03] MEDS: Lactated Ringer's 1,000 ML IV SCH ×2 (02:45→04:04)
[2018-06-03 07:08] LABS: BASO % 0.4 % (0.0-2.0); EOS # 0.5 K/uL (0.0-0.7); EOS % 4.6 % (0.0-4.0); HEMOGLOBIN 12.2 g/dL (12.0-18.0); LYMPH # 1.9 K/uL (1.0-4.3); LYMPH % 18.2 % (20.0-40.0); MEAN CELL VOLUME 92.2 fl (80.0-94.0); MEAN CORPUSCULAR HEMOGLOBIN 31.6 pg (27.0-31.0); MEAN CORPUSCULAR HGB CONC 34.3 g/dL (33.0-37.0); MONO # 1.1 K/uL (0.0-0.8); MONO % 10.6 % (0.0-10.0); NEUT # 6.8 K/uL (1.8-7.0); NEUT % 66.2 % (50.0-75.0); RBC 3.87 Mil/uL (4.40-5.90); RED CELL DISTRIBUTION WIDTH 13.1 % (11.5-14.5); WHITE BLOOD COUNT 10.2 K/uL (4.8-10.8)
[2018-06-03 07:32] LABS: BLOOD UREA NITROGEN 7 mg/dl (9-20); CALCIUM 8.6 mg/dL (8.4-10.2); GFR NON-AFRICAN AMERICAN > 60
[2018-06-03] MEDS: Enoxaparin 40 mg Syringe SC SCH (08:37)
[2018-06-03] MEDS ORDERED: Potassium Phosphate 3 mmol/ml Inj IV ONE (08:39)
[2018-06-03] MEDS ORDERED: Magnesium Sulfate 2 gm/50 ml 2 GM/50 ML BAG IVPB ONE (08:39)
--- NOTE | 2018-06-03 08:47 | CP.PCM.PN ---
Subjective - Date & Time of Evaluation Date of Evaluation: 06/03/18 Time of Evaluation: 08:47 - Subjective Subjective: Patient seen and examined. No acute events over night. Passing flatus from stoma. No BM. Abdominal dressings removed. Jarocho drain 5cc serous ouput over 24hrs. Jarocho drain removed. On Q catheters removed. Objective - Vital Signs/Intake and Output Vital Signs (last 24 hours): Temp Pulse Resp BP Pulse Ox 97.9 F 97 H 22 129/70 99 06/03/18 08:42 06/03/18 08:42 06/03/18 08:42 06/03/18 08:42 06/03/18 08:42 Intake and Output: 06/03/18 06/03/18 06:59 18:59 Intake Total 1500 Output Total 1853 Balance -353 - Medications Medications: Current Medications Acetaminophen (Tylenol 325mg Tab) 650 mg PO Q4 PRN PRN Reason: Pain, Mild (1-3) Last Admin: 06/01/18 05:57 Dose: 650 mg Enoxaparin Sodium (Lovenox) 40 mg SC DAILY [facility]; Protocol Last Admin: 06/03/18 08:37 Dose: 40 mg Famotidine (Pepcid) 20 mg PO DAILY [facility] Last Admin: 06/03/18 08:38 Dose: 20 mg Meropenem 1 gm/ Sodium (Chloride) 100 mls @ 100 mls/hr IVPB Q8 [facility]; Protocol Last Admin: 06/03/18 00:49 Dose: 100 mls/hr Metronidazole (Flagyl 500mg/100ml Ns) 100 mls @ 100 mls/hr IVPB Q8@0200,1000,1 800 [facility]; Protocol Last Admin: 06/03/18 02:14 Dose: 100 mls/hr Bupivacaine HCl 150 ml/ Sodium (Chloride) 600 mls @ 7 mls/hr IJ .Q24H ONE Stop: 06/03/18 09:32 Last Admin: 06/02/18 12:20 Dose: 7 mls/hr Magnesium Oxide (Mag-Ox) 400 mg PO BID [facility] Morphine Sulfate (Morphine) 4 mg IVP Q4 PRN PRN Reason: Pain, severe (8-10) Last Admin: 06/02/18 22:07 Dose: 4 mg Oxycodone/Acetaminophen (Percocet 5/325 Mg Tab) 1 tab PO Q4 PRN PRN Reason: Pain, moderate (4-7) Stop: 06/05/18 06:19 Last Admin: 06/02/18 19:46 Dose: 1 tab Potassium Phos/Sodium Phos (Neutra-Phos) 1 pkt PO Q8 [facility] Stop: 06/04/18 01:01 - Labs Labs: 06/03/18 06:55 06/03/18 06:55 PT 15.1 Seconds (9.8-13.1) H 05/30/18 21:00 INR 1.3 05/30/18 21:00 APTT 37.2 Seconds (25.6-37.1) H 05/30/18 21:00 - Constitutional Appears: No Acute Distress - Head Exam Head Exam: NORMOCEPHALIC - Eye Exam Eye Exam: EOMI, Normal appearance - Respiratory Exam Respiratory Exam: NORMAL BREATHING PATTERN - Cardiovascular Exam Cardiovascular Exam: +S1, +S2 - GI/Abdominal Exam GI & Abdominal Exam: Soft, Tenderness. absent: Distended, Firm, Guarding, Rigid, Rebound Additional comments: incision site tenderness - Neurological Exam Neurological Exam: Alert, Awake, Oriented x3 - Skin Skin Exam: Dry, Intact, Warm Assessment and Plan - Assessment and Plan (Free Text) Assessment: 43M with colovesicular fistula POD#3 s/p pallavi's procedure Plan: Supplement mg, phos as needed Adv to Reg diet D/c jarocho drain PRN pain and nausea medication Continue to encourage ambulation and Incentive spirometer use Continue antibiotics C/w Chow DVT ppx Discussed with Dr. Joe Carlos PGY3
[2018-06-03] MEDS: Magnesium Oxide 400 mg Tab UD PO SCH ×2 (10:43→17:27)
[2018-06-03] MEDS: Potassium & Sodium Phosphate PO SCH ×2 (10:43→17:27)
--- NOTE | 2018-06-03 15:54 | CP.PCM.PN ---
Subjective - Date & Time of Evaluation Date of Evaluation: 06/03/18 Time of Evaluation: 14:30 - Subjective Subjective: S/P Laparotomy, Sigmoidectomy and Bladder repair. Mild abdominal pain after meals Objective - Vital Signs/Intake and Output Vital Signs (last 24 hours): Temp Pulse Resp BP Pulse Ox 97.9 F 97 H 22 129/70 98 06/03/18 08:42 06/03/18 08:42 06/03/18 08:42 06/03/18 08:42 06/03/18 13:41 Intake and Output: 06/03/18 06/03/18 06:59 18:59 Intake Total 1500 Output Total 1853 Balance -353 - Medications Medications: Current Medications Acetaminophen (Tylenol 325mg Tab) 650 mg PO Q4 PRN PRN Reason: Pain, Mild (1-3) Last Admin: 06/01/18 05:57 Dose: 650 mg Enoxaparin Sodium (Lovenox) 40 mg SC DAILY [facility]; Protocol Last Admin: 06/03/18 08:37 Dose: 40 mg Famotidine (Pepcid) 20 mg PO DAILY [facility] Last Admin: 06/03/18 08:38 Dose: 20 mg Meropenem 1 gm/ Sodium (Chloride) 100 mls @ 100 mls/hr IVPB Q8 [facility]; Protocol Last Admin: 06/03/18 13:00 Dose: 100 mls/hr Metronidazole (Flagyl 500mg/100ml Ns) 100 mls @ 100 mls/hr IVPB Q8@0200,1000,1800 [facility]; Protocol Last Admin: 06/03/18 12:00 Dose: 100 mls/hr Magnesium Oxide (Mag-Ox) 400 mg PO BID [facility] Last Admin: 06/03/18 10:43 Dose: 400 mg Morphine Sulfate (Morphine) 4 mg IVP Q4 PRN PRN Reason: Pain, severe (8-10) Last Admin: 06/02/18 22:07 Dose: 4 mg Oxycodone/Acetaminophen (Percocet 5/325 Mg Tab) 1 tab PO Q4 PRN PRN Reason: Pain, moderate (4-7) Stop: 06/05/18 06:19 Last Admin: 06/02/18 19:46 Dose: 1 tab Potassium Phos/Sodium Phos (Neutra-Phos) 1 pkt PO Q8 [facility] Stop: 06/04/18 01:01 Last Admin: 06/03/18 10:43 Dose: 1 pkt - Labs Labs: 06/03/18 06:55 06/03/18 06:55 PT 15.1 Seconds (9.8-13.1) H 05/30/18 21:00 INR 1.3 05/30/18 21:00 APTT 37.2 Seconds (25.6-37.1) H 05/30/18 21:00 - Constitutional Appears: No Acute Distress - Head Exam Head Exam: NORMAL INSPECTION - Eye Exam Eye Exam: PERRL - ENT Exam ENT Exam: Normal Exam - Neck Exam Neck Exam: Normal Inspection - Respiratory Exam Respiratory Exam: NORMAL BREATHING PATTERN - Cardiovascular Exam Cardiovascular Exam: REGULAR RHYTHM - GI/Abdominal Exam GI & Abdominal Exam: Soft, Tenderness (mild surgical incision, ), Normal Bowel Sounds. absent: Distended, Guarding, Rebound Additional comments: Abdominal midline surgical incision with jolene. LUQ Colostomy, RJP drainage out - Exam Additional comments: Chow Cath - Extremities Exam Extremities Exam: Normal Inspection - Neurological Exam Neurological Exam: Alert, Oriented x3 - Psychiatric Exam Psychiatric exam: Normal Mood - Skin Skin Exam: Warm Assessment and Plan (1) S/P laparotomy Status: Acute (2) History of open sigmoidectomy Status: Acute (3) S/P bladder repair Status: Acute (4) Colostomy in place Status: Acute (5) Abdominal abscess Status: Acute (6) Acute diverticulitis Status: Acute (7) Colovesical fistula Status: Acute (8) UTI due to extended-spectrum beta lactamase (ESBL) producing Escherichia coli - Assessment and Plan (Free Text) Plan: Continue regular diet, Flagyl, Merren, Percocet and rest of Tx. Surgical f/u.
[2018-06-03] MEDS: Oxycodone/Acetaminophen 5/325 mg Tab PO PRN (22:24)
--- NOTE | 2018-06-03 22:58 | CP.PCM.PN ---
Subjective - Date & Time of Evaluation Date of Evaluation: 06/03/18 Time of Evaluation: 21:58 - Subjective Subjective: I D NOTE 3RDDAY S/P LAPOROTOMY,SIGMOID RESECTION AND BLADDER REPAIR(REPAIR OF COLOVESICULAR FISTULA WBC:10.2,NORMAL DIFF COTINUE MEROPENEM/FLAGYL/VANCOMYCIN Objective - Vital Signs/Intake and Output Vital Signs (last 24 hours): Temp Pulse Resp BP Pulse Ox 98.4 F 81 20 117/81 98 06/03/18 16:45 06/03/18 16:45 06/03/18 16:45 06/03/18 16:45 06/03/18 16:45 - Medications Medications: Current Medications Acetaminophen (Tylenol 325mg Tab) 650 mg PO Q4 PRN PRN Reason: Pain, Mild (1-3) Last Admin: 06/01/18 05:57 Dose: 650 mg Enoxaparin Sodium (Lovenox) 40 mg SC DAILY [facility]; Protocol Last Admin: 06/03/18 08:37 Dose: 40 mg Famotidine (Pepcid) 20 mg PO DAILY [facility] Last Admin: 06/03/18 08:38 Dose: 20 mg Meropenem 1 gm/ Sodium (Chloride) 100 mls @ 100 mls/hr IVPB Q8 [facility]; Protocol Last Admin: 06/03/18 17:31 Dose: 100 mls/hr Metronidazole (Flagyl 500mg/100ml Ns) 100 mls @ 100 mls/hr IVPB Q8@0200 ,1000,1800 [facility]; Protocol Last Admin: 06/03/18 17:31 Dose: 100 mls/hr Magnesium Oxide (Mag-Ox) 400 mg PO BID [facility] Last Admin: 06/03/18 17:27 Dose: 400 mg Morphine Sulfate (Morphine) 4 mg IVP Q4 PRN PRN Reason: Pain, severe (8-10) Last Admin: 06/02/18 22:07 Dose: 4 mg Oxycodone/Acetaminophen (Percocet 5/325 Mg Tab) 1 tab PO Q4 PRN PRN Reason: Pain, moderate (4-7) Stop: 06/05/18 06:19 Last Admin: 06/03/18 22:24 Dose: 1 tab Potassium Phos/Sodium Phos (Neutra-Phos) 1 pkt PO Q8 [facility] Stop: 06/04/18 01:01 Last Admin: 06/03/18 17:27 Dose: 1 pkt - Labs Labs: 06/03/18 06:55 06/03/18 06:55 PT 15.1 Seconds (9.8-13.1) H 05/30/18 21:00 INR 1.3 05/30/18 21:00 APTT 37.2 Seconds (25.6-37.1) H 05/30/18 21:00
[2018-06-04] MEDS: Meropenem 1 GM in Sodium Chloride 0.9% 100 ML IVPB SCH ×3 (00:02→17:02)
[2018-06-04] MEDS: Potassium & Sodium Phosphate PO SCH (00:02)
[2018-06-04] MEDS: metroNIDAZOLE 500mg/100ml NS 100 ML IVPB SCH ×3 (01:13→17:02)
--- NOTE | 2018-06-04 01:48 | OP ---
PROCEDURE DATE: 05/31/2018 SURGEON: Kishor Diaz MD ASSISTANTS: Marc Calvillo DO; Matt Cannon DO PREOPERATIVE DIAGNOSES: Chronic diverticulitis, colovesical fistula. POSTOPERATIVE DIAGNOSES: Chronic diverticulitis, colovesical fistula. PROCEDURE PERFORMED: Repair of colovesical fistula, sigmoid resection, and colostomy formation. ANESTHESIA: General. ANESTHESIOLOGIST: Dr. Gomez. ESTIMATED BLOOD LOSS: 150 mL. DESCRIPTION OF OPERATION: Upon administration of general anesthesia and intubation, the patient was in a supine position and was prepped and draped in the usual sterile fashion. Upon performing time out, left paramedian incision was done from the level of the umbilicus to the pubis using a scalpel. Dissection was done all the way to the fascia using electrocautery. Intraabdominal cavity was reached. Any active oozing in the abdominal wall was cauterized with electrocautery bovi. Upon reaching the intraabdominal cavity, inspection of the anatomy showed a thickened sigmoid mass from chronic infection. Further inspection also showed thickening of the dome of the bladder. The dome of the bladder was seemed to be somewhat attached to the thickened portion of the colon. Blunt dissection was done with the hands to separate the bladder from the colon. Inspection of the dome of the bladder showed indents that may have represented prior sites of the fistula from the bladder to the colon. To test if these indents were indeed prior holes from the fistula, a leak test was performed. A large bag of IV was connected to the Chow catheter and injected via the Chow catheter into the bladder. The bladder was inspected for any form of leak of the fluid from the IV bag. The bladder was seen distended without any signs of leak. With this, the thickened portion of the bladder with the indents was approximated together. The fluid that was injected in the bladder was then taken out via gravity. Upon approximating the thickened portion of the bladder and repairing the bladder, care was directed towards the thickened portion of the sigmoid. Distal portion of the left descending colon was mobilized away from the abdominal wall to gain more length for ostomy creation. The distal portion to the chronic sigmoid mass was attained and shown to be normal in texture and in size. Proximal portion to the thickened portion of the sigmoid was also seemed to be normal in texture and size. Distal portion to the mass was transected using a DEONTE, which was done with no signs of any leak. Proximal portion to the sigmoid mass was also transected with the DEONTE. The colon was then taken away from its mesentery using a harmonic. Care was taken to cauterize the large vessels going to that portion of the colon. Upon dissecting the colon off its mesentery, care was taken to make sure there were no signs of any bleeding. Proximal portion of the colon was then brought up through a lateral incision in the abdominal wall that was used for the stoma creation. This incision in the lateral wall along the line of semilunar at the same level of the umbilicus fit two fingers allowing for it to have enough space for the colon to be brought out through. The intraabdominal space was then thoroughly irrigated with approximately 500 mL of irrigation fluid and suctioned also. An intraabdominal drain was placed into the pelvic region and attached to the suction bulb. On-Q ball catheters were also placed in the preperitoneal space on both sides of the incision. The fascia of the abdomen was closed with 0 loop PDS coming from both the superior and inferior portion and meeting in the middle where they were tied off. The paramedian skin incision was closed with jolene. Upon closure of the abdominal incision, care was then directed towards the site made for the stoma creation. The colon that was brought up through the lateral incision was opened up at the suture line and stoma was created using 3-0 Vicryl in a circumferential manner suturing the colon to the skin. Inspection of the colon showed it was viable and pink in color on the inside. Abdomen was cleaned with wet laps and dry laps. An ostomy bag was placed over the site of the stoma. Dressing was placed in the midline incision using 4 x 4 and tape. The patient tolerated the procedure well and was extubated and moved to the PACU without any complications. Estimated blood loss was approximately 150 mL. Marc Calvillo DO Kishor Diaz MD [facility] # [id number] MTDD
[2018-06-04 06:45] LABS: BASO % 0.6 % (0.0-2.0); EOS # 0.5 K/uL (0.0-0.7); EOS % 8.9 % (0.0-4.0); HEMOGLOBIN 12.3 g/dL (12.0-18.0); LYMPH # 1.8 K/uL (1.0-4.3); LYMPH % 30.3 % (20.0-40.0); MEAN CORPUSCULAR HEMOGLOBIN 31.9 pg (27.0-31.0); MONO # 0.7 K/uL (0.0-0.8); MONO % 11.8 % (0.0-10.0); NEUT # 2.8 K/uL (1.8-7.0); NEUT % 48.4 % (50.0-75.0); NRBC % 0.1 % (0.0-0.0); RBC 3.85 Mil/uL (4.40-5.90); RED CELL DISTRIBUTION WIDTH 12.9 % (11.5-14.5); WHITE BLOOD COUNT 5.8 K/uL (4.8-10.8)
[2018-06-04 07:15] LABS: BLOOD UREA NITROGEN 11 mg/dl (9-20); CALCIUM 8.8 mg/dL (8.4-10.2); GFR NON-AFRICAN AMERICAN > 60
--- NOTE | 2018-06-04 08:25 | CP.PCM.PN ---
Subjective - Date & Time of Evaluation Date of Evaluation: 06/04/18 Time of Evaluation: 07:00 - Subjective Subjective: Patient seen and examined. No acute events over night. Tolerating regular diet. Having stool output from stoma. Objective - Vital Signs/Intake and Output Vital Signs (last 24 hours): Temp Pulse Resp BP Pulse Ox 98.2 F 71 20 116/79 98 06/04/18 08:01 06/04/18 08:01 06/04/18 08:01 06/04/18 08:01 06/04/18 08:01 Intake and Output: 06/04/18 06/04/18 06:59 18:59 Intake Total 2000 Output Total 2100 Balance -100 - Medications Medications: Current Medications Acetaminophen (Tylenol 325mg Tab) 650 mg PO Q4 PRN PRN Reason: Pain, Mild (1-3) Last Admin: 06/01/18 05:57 Dose: 650 mg Enoxaparin Sodium (Lovenox) 40 mg SC DAILY [facility]; Protocol Last Admin: 06/03/18 08:37 Dose: 40 mg Famotidine (Pepcid) 20 mg PO DAILY [facility] Last Admin: 06/03/18 08:38 Dose: 20 mg Meropenem 1 gm/ Sodium (Chloride) 100 mls @ 100 mls/hr IVPB Q8 [facility]; Protocol Last Admin: 06/04/18 00:02 Dose: 100 mls/hr Metronidazole (Flagyl 500mg/100ml Ns) 100 mls @ 100 mls/hr IVPB Q8@0200 ,1000,1800 [facility]; Protocol Last Admin: 06/04/18 01:13 Dose: 100 mls/hr Vancomycin HCl 1 gm/ Sodium (Chloride) 250 mls @ 166.667 mls/hr IVPB Q12 [facility]; Protocol Magnesium Oxide (Mag-Ox) 400 mg PO BID [facility] Last Admin: 06/03/18 17:27 Dose: 400 mg Magnesium Oxide (Mag-Ox) 800 mg PO DAILY [facility] Morphine Sulfate (Morphine) 4 mg IVP Q4 PRN PRN Reason: Pain, severe (8-10) Last Admin: 06/02/18 22:07 Dose: 4 mg Oxycodone/Acetaminophen (Percocet 5/325 Mg Tab) 1 tab PO Q4 PRN PRN Reason: Pain, moderate (4-7) Stop: 06/05/18 06:19 Last Admin: 06/03/18 22:24 Dose: 1 tab - Labs Labs: 06/04/18 05:45 06/04/18 05:45 PT 15.1 Seconds (9.8-13.1) H 05/30/18 21:00 INR 1.3 05/30/18 21:00 APTT 37.2 Seconds (25.6-37.1) H 05/30/18 21:00 - Constitutional Appears: No Acute Distress - Head Exam Head Exam: NORMOCEPHALIC - Eye Exam Eye Exam: EOMI, Normal appearance - ENT Exam ENT Exam: Mucous Membranes Moist - Respiratory Exam Respiratory Exam: NORMAL BREATHING PATTERN - Cardiovascular Exam Cardiovascular Exam: +S1, +S2 - GI/Abdominal Exam GI & Abdominal Exam: Soft, Tenderness. absent: Distended, Firm, Guarding, Rigid, Rebound Additional comments: incisional site tenderness - Neurological Exam Neurological Exam: Alert, Awake, Oriented x3 - Psychiatric Exam Psychiatric exam: Normal Mood - Skin Skin Exam: Dry, Intact, Warm Assessment and Plan - Assessment and Plan (Free Text) Assessment: 43M s/p Issac's procedure Plan: -Regular diet -ABx per ID -Encourage ambulation -DVT ppx -Ostomy education -C/w portillo -Portillo management per urology -Further recs per Dr. Joe Carlos PGY3
--- NOTE | 2018-06-04 08:27 | CP.PCM.PN ---
Subjective - Date & Time of Evaluation Date of Evaluation: 06/04/18 Time of Evaluation: 08:00 - Subjective Subjective: GI progress note for Dr. Carter Pt seen and examined this AM. Patient underwent a pallavi's procedure for a colovesicular fistula 3 days ago. Patient started having soft stool in ostomy bag, states pain is improved, and is tolerating diet, denies any fevers, chills nausea, vomiting. Objective - Vital Signs/Intake and Output Vital Signs (last 24 hours): Temp Pulse Resp BP Pulse Ox 98.2 F 71 20 116/79 98 06/04/18 08:01 06/04/18 08:01 06/04/18 08:01 06/04/18 08:01 06/04/18 08:01 Intake and Output: 06/04/18 06/04/18 06:59 18:59 Intake Total 2000 Output Total 2100 Balance -100 - Medications Medications: Current Medications Acetaminophen (Tylenol 325mg Tab) 650 mg PO Q4 PRN PRN Reason: Pain, Mild (1-3) Last Admin: 06/01/18 05:57 Dose: 650 mg Enoxaparin Sodium (Lovenox) 40 mg SC DAILY [facility]; Protocol Last Admin: 06/03/18 08:37 Dose: 40 mg Famotidine (Pepcid) 20 mg PO DAILY [facility] Last Admin: 06/03/18 08:38 Dose: 20 mg Meropenem 1 gm/ Sodium (Chloride) 100 mls @ 100 mls/hr IVPB Q8 [facility]; Protocol Last Admin: 06/04/18 00:02 Dose: 100 mls/hr Metronidazole (Flagyl 500mg/100ml Ns) 100 mls @ 100 mls/hr IVPB Q8@0200,1000,1800 [facility]; Protocol Last Admin: 06/04/18 01:13 Dose: 100 mls/hr Vancomycin HCl 1 gm/ Sodium (Chloride) 250 mls @ 166.667 mls/hr IVPB Q12 [facility]; Protocol Magnesium Oxide (Mag-Ox) 400 mg PO BID [facility] Last Admin: 06/03/18 17:27 Dose: 400 mg Magnesium Oxide (Mag-Ox) 800 mg PO DAILY [facility] Morphine Sulfate (Morphine) 4 mg IVP Q4 PRN PRN Reason: Pain, severe (8-10) Last Admin: 06/02/18 22:07 Dose: 4 mg Oxycodone/Acetaminophen (Percocet 5/325 Mg Tab) 1 tab PO Q4 PRN PRN Reason: Pain, moderate (4-7) Stop: 06/05/18 06:19 Last Admin: 06/03/18 22:24 Dose: 1 tab - Labs Labs: 06/04/18 05:45 06/04/18 05:45 PT 15.1 Seconds (9.8-13.1) H 05/30/18 21:00 INR 1.3 05/30/18 21:00 APTT 37.2 Seconds (25.6-37.1) H 05/30/18 21:00 - Constitutional Appears: Well, Non-toxic, No Acute Distress - Head Exam Head Exam: ATRAUMATIC, NORMOCEPHALIC - Eye Exam Eye Exam: Normal appearance. absent: Conjunctival injection, Scleral icterus - ENT Exam ENT Exam: Mucous Membranes Moist, Normal Oropharynx - Respiratory Exam Respiratory Exam: NORMAL BREATHING PATTERN. absent: Accessory Muscle Use, Re spiratory Distress - GI/Abdominal Exam GI & Abdominal Exam: Soft, Tenderness (twan-incisional, RLQ). absent: Distended Additional comments: midline incision well approximated with jolene, bonnie draine removed, ostomy in the LLQ pink, productive of soft, normal colored stool - Extremities Exam Extremities Exam: absent: Calf Tenderness, Pedal Edema - Neurological Exam Neurological Exam: Alert, Awake, Oriented x3 - Psychiatric Exam Psychiatric exam: Normal Affect, Normal Mood Assessment and Plan - Assessment and Plan (Free Text) Assessment: 43M with colovesicular fistula POD#3 s/p pallavi's procedure, recovering well with stool ostomy output Plan: Continue management per primary and surgery teams PRN pain and nausea medication No GI intervention at this time Discussed with Dr. Raul San, PGY2
[2018-06-04] MEDS ORDERED: Magnesium Oxide 400 mg Tab UD PO SCH (09:00)
[2018-06-04] MEDS: Enoxaparin 40 mg Syringe SC SCH (10:00)
[2018-06-04] MEDS: Magnesium Oxide 400 mg Tab UD PO SCH ×2 (10:00→17:03)
--- NOTE | 2018-06-04 15:37 | CP.PCM.PN ---
Subjective - Date & Time of Evaluation Date of Evaluation: 06/04/18 Time of Evaluation: 11:40 - Subjective Subjective: F/U S/P Laparotomy, Sigmoidectomy, Bladder repair Mild abdominal pain after meals. Ambulating by himself. Objective - Vital Signs/Intake and Output Vital Signs (last 24 hours): Temp Pulse Resp BP Pulse Ox 98.2 F 71 20 116/79 98 06/04/18 08:01 06/04/18 08:01 06/04/18 08:01 06/04/18 08:01 06/04/18 08:01 Intake and Output: 06/04/18 06/04/18 06:59 18:59 Intake Total 2000 Output Total 2100 Balance -100 - Medications Medications: Current Medications Acetaminophen (Tylenol 325mg Tab) 650 mg PO Q4 PRN PRN Reason: Pain, Mild (1-3) Last Admin: 06/01/18 05:57 Dose: 650 mg Enoxaparin Sodium (Lovenox) 40 mg SC DAILY [facility]; Protocol Last Admin: 06/04/18 10:00 Dose: 40 mg Famotidine (Pepcid) 20 mg PO DAILY [facility] Last Admin: 06/04/18 10:00 Dose: 20 mg Meropenem 1 gm/ Sodium (Chloride) 100 mls @ 100 mls/hr IVPB Q8 [facility]; Protocol Last Admin: 06/04/18 09:57 Dose: 100 mls/hr Metronidazole (Flagyl 500mg/100ml Ns) 100 mls @ 100 mls/hr IVPB Q8@0200,10 00,1800 [facility]; Protocol Last Admin: 06/04/18 09:58 Dose: 100 mls/hr Vancomycin HCl 1 gm/ Sodium (Chloride) 250 mls @ 166.667 mls/hr IVPB Q12 [facility]; Protocol Last Admin: 06/04/18 09:59 Dose: 166.667 mls/hr Magnesium Oxide (Mag-Ox) 400 mg PO BID [facility] Last Admin: 06/04/18 10:00 Dose: 400 mg Morphine Sulfate (Morphine) 4 mg IVP Q4 PRN PRN Reason: Pain, severe (8-10) Last Admin: 06/02/18 22:07 Dose: 4 mg Oxycodone/Acetaminophen (Percocet 5/325 Mg Tab) 1 tab PO Q4 PRN PRN Reason: Pain, moderate (4-7) Stop: 06/05/18 06:19 Last Admin: 06/03/18 22:24 Dose: 1 tab - Labs Labs: 06/04/18 05:45 06/04/18 05:45 PT 15.1 Seconds (9.8-13.1) H 05/30/18 21:00 INR 1.3 05/30/18 21:00 APTT 37.2 Seconds (25.6-37.1) H 05/30/18 21:00 - Constitutional Appears: No Acute Distress - Head Exam Head Exam: NORMAL INSPECTION - Eye Exam Eye Exam: PERRL - ENT Exam ENT Exam: Normal Exam - Neck Exam Neck Exam: Normal Inspection - Respiratory Exam Respiratory Exam: NORMAL BREATHING PATTERN - Cardiovascular Exam Cardiovascular Exam: REGULAR RHYTHM - GI/Abdominal Exam GI & Abdominal Exam: Soft, Tenderness (mild surgical incision), Normal Bowel Sounds. absent: Distended, Guarding, Rebound Additional comments: Colostomy LUQ. Mid-abdomen surgical incision with jolene, open to air, no drainage. - Exam Additional comments: Chow cath - Extremities Exam Extremities Exam: Normal Inspection - Neurological Exam Neurological Exam: Alert, Oriented x3 - Psychiatric Exam Psychiatric exam: Normal Mood - Skin Skin Exam: Warm Assessment and Plan (1) S/P laparotomy Status: Acute (2) History of open sigmoidectomy Status: Acute (3) S/P bladder repair Status: Acute (4) Colostomy in place Status: Acute (5) Abdominal abscess Status: Acute (6) Acute diverticulitis Status: Acute (7) Colovesical fistula Status: Acute (8) UTI due to extended-spectrum beta lactamase (ESBL) producing Escherichia coli - Assessment and Plan (Free Text) Plan: Continue regular diet, Vanco, Merren, Falgyl and rest of Tx.
[2018-06-05] MEDS: Meropenem 1 GM in Sodium Chloride 0.9% 100 ML IVPB SCH ×3 (00:10→16:40)
[2018-06-05] MEDS: Magnesium Oxide 400 mg Tab UD PO SCH ×2 (09:18→16:41)
[2018-06-05] MEDS: Enoxaparin 40 mg Syringe SC SCH (09:18)
[2018-06-05] MEDS: metroNIDAZOLE 500mg/100ml NS 100 ML IVPB SCH ×2 (09:21→17:00)
--- NOTE | 2018-06-05 12:05 | CP.PCM.PN ---
Subjective - Date & Time of Evaluation Date of Evaluation: 06/05/18 Time of Evaluation: 12:03 - Subjective Subjective: SURGERY NOTE FOR DR. RG 43M seen and examined at bedside. Patient denies pain, denies nausea or vomiting, denies fevers or chills. Tolerating diet, having stool output from stoma. Objective - Vital Signs/Intake and Output Vital Signs (last 24 hours): Temp Pulse Resp BP Pulse Ox 98.1 F 76 18 120/77 98 06/05/18 08:23 06/05/18 08:23 06/05/18 08:23 06/05/18 08:23 06/05/18 08:23 Intake and Output: 06/05/18 06/05/18 06:59 18:59 Output Total 2300 Balance -2300 - Medications Medications: Current Medications Acetaminophen (Tylenol 325mg Tab) 650 mg PO Q4 PRN PRN Reason: Pain, Mild (1-3) Last Admin: 06/01/18 05:57 Dose: 650 mg Enoxaparin Sodium (Lovenox) 40 mg SC DAILY [facility]; Protocol Last Admin: 06/05/18 09:18 Dose: 40 mg Famotidine (Pepcid) 20 mg PO DAILY [facility] Last Admin: 06/05/18 09:18 Dose: 20 mg Meropenem 1 gm/ Sodium (Chloride) 100 mls @ 100 mls/hr IVPB Q8 [facility]; Protocol Last Admin: 06/05/18 09:21 Dose: 100 mls/hr Metronidazole (Flagyl 500mg/100ml Ns) 100 mls @ 100 mls/hr IVPB Q8@0200,1000,1800 [facility]; Protocol Last Admin: 06/05/18 09:21 Dose: 100 mls/hr Vancomycin HCl 1 gm/ Sodium (Chloride) 250 mls @ 166.667 mls/hr IVPB Q12 [facility]; Protocol Last Admin: 06/05/18 09:22 Dose: 166.667 mls/hr Magnesium Oxide (Mag-Ox) 400 mg PO BID [facility] Last Admin: 06/05/18 09:18 Dose: 400 mg Morphine Sulfate (Morphine) 4 mg IVP Q4 PRN PRN Reason: Pain, severe (8-10) Last Admin: 06/02/18 22:07 Dose: 4 mg - Labs Labs: 06/04/18 05:45 06/04/18 05:45 PT 15.1 Seconds (9.8-13.1) H 05/30/18 21:00 INR 1.3 05/30/18 21:00 APTT 37.2 Seconds (25.6-37.1) H 05/30/18 21:00 - Constitutional Appears: Non-toxic, No Acute Distress - Respiratory Exam Respiratory Exam: Clear to Ausculation Bilateral, NORMAL BREATHING PATTERN - Cardiovascular Exam Cardiovascular Exam: REGULAR RHYTHM, +S1, +S2 - GI/Abdominal Exam GI & Abdominal Exam: Soft. absent: Distended, Firm, Guarding, Rigid, Tenderness, Rebound Additional comments: stoma pink and patent - Extremities Exam Extremities Exam: absent: Pedal Edema, Tenderness Additional comments: incision CDI - Neurological Exam Neurological Exam: Alert, Awake - Skin Skin Exam: Dry, Intact, Normal Color, Warm Assessment and Plan - Assessment and Plan (Free Text) Assessment: 43M s/p pallavi's procedure POD#4 Plan: - continue regular - continue ostomy care - clear for discharge from surgery standpoint - ID recs for PO antibiotics if needed - Clear for DC Further rec discuss with Dr. Joe Calvillo, PGY3
--- NOTE | 2018-06-05 18:05 | CP.PCM.PN ---
Subjective - Date & Time of Evaluation Date of Evaluation: 06/05/18 Time of Evaluation: 12:20 - Subjective Subjective: F/U S/P Laparotomy, Sigmoidectomy and Bladder repair. Eating well, minimal abdominal pain post-pandrial. Objective - Vital Signs/Intake and Output Vital Signs (last 24 hours): Temp Pulse Resp BP Pulse Ox 98.1 F 84 20 108/68 97 06/05/18 15:51 06/05/18 15:51 06/05/18 15:51 06/05/18 15:51 06/05/18 15:51 Intake and Output: 06/05/18 06/05/18 06:59 18:59 Output Total 2300 Balance -2300 - Medications Medications: Current Medications Acetaminophen (Tylenol 325mg Tab) 650 mg PO Q4 PRN PRN Reason: Pain, Mild (1-3) Last Admin: 06/05/18 16:46 Dose: 650 mg Enoxaparin Sodium (Lovenox) 40 mg SC DAILY [facility]; Protocol Last Admin: 06/05/18 09:18 Dose: 40 mg Famotidine (Pepcid) 20 mg PO DAILY [facility] Last Admin: 06/05/18 09:18 Dose: 20 mg Meropenem 1 gm/ Sodium (Chloride) 100 mls @ 100 mls/hr IVPB Q8 [facility]; Protocol Last Admin: 06/05/18 16:40 Dose: 100 mls/hr Metronidazole (Flagyl 500mg/100ml Ns) 100 mls @ 100 mls/hr IVPB Q8@0200,1000,1800 [facility]; Protocol Last Admin: 06/05/18 17:00 Dose: 100 mls/hr Vancomycin HCl 1 gm/ Sodium (Chloride) 250 mls @ 166.667 mls/hr IVPB Q12 [facility]; Protocol Last Admin: 06/05/18 09:22 Dose: 166.667 mls/hr Magnesium Oxide (Mag-Ox) 400 mg PO BID [facility] Last Admin: 06/05/18 16:41 Dose: 400 mg Morphine Sulfate (Morphine) 4 mg IVP Q4 PRN PRN Reason: Pain, severe (8-10) Last Admin: 06/02/18 22:07 Dose: 4 mg - Labs Labs: 06/04/18 05:45 06/04/18 05:45 PT 15.1 Seconds (9.8-13.1) H 05/30/18 21:00 INR 1.3 05/30/18 21:00 APTT 37.2 Seconds (25.6-37.1) H 05/30/18 21:00 - Constitutional Appears: No Acute Distress - Head Exam Head Exam: NORMAL INSPECTION - Eye Exam Eye Exam: PERRL - ENT Exam ENT Exam: Normal Exam - Neck Exam Neck Exam: Normal Inspection - Respiratory Exam Respiratory Exam: NORMAL BREATHING PATTERN - Cardiovascular Exam Cardiovascular Exam: REGULAR RHYTHM - GI/Abdominal Exam GI & Abdominal Exam: Soft, Tenderness (Mild surgical incision), Normal Bowel Sounds. absent: Distended, Guarding, Rebound Additional comments: [place] to mid abdomen, no drainage. - Extremities Exam Extremities Exam: Normal Inspection - Neurological Exam Neurological Exam: Alert, Oriented x3 - Psychiatric Exam Psychiatric exam: Normal Mood - Skin Skin Exam: Warm Assessment and Plan (1) S/P laparotomy Status: Acute (2) History of open sigmoidectomy Status: Acute (3) S/P bladder repair Status: Acute (4) Colostomy in place Status: Acute (5) Abdominal abscess Status: Acute (6) Acute diverticulitis Status: Acute (7) Colovesical fistula Status: Acute (8) UTI due to extended-spectrum beta lactamase (ESBL) producing Escherichia coli - Assessment and Plan (Free Text) Plan: Continue Aristeo Dumont Vanco, Surgical F/U.
[2018-06-06] MEDS: Meropenem 1 GM in Sodium Chloride 0.9% 100 ML IVPB SCH ×2 (01:46→08:33)
[2018-06-06] MEDS: metroNIDAZOLE 500mg/100ml NS 100 ML IVPB SCH ×2 (02:51→09:05)
[2018-06-06 07:08] LABS: MEAN CORPUSCULAR HEMOGLOBIN 31.7 pg (27.0-31.0); MEAN CORPUSCULAR HGB CONC 33.7 g/dL (33.0-37.0); RBC 4.11 Mil/uL (4.40-5.90); RED CELL DISTRIBUTION WIDTH 12.9 % (11.5-14.5); WHITE BLOOD COUNT 7.8 K/uL (4.8-10.8)
--- NOTE | 2018-06-06 08:28 | CP.PCM.PN ---
Subjective - Date & Time of Evaluation Date of Evaluation: 06/06/18 Time of Evaluation: 08:26 - Subjective Subjective: SURGERY NOTE FOR DR. RG 43M seen and examined out of bed. Patient up and ambulating, denies pain, denies nausea, vomiting, denies fevers or chills. Patient tolerating regular diet. Passing gas and stool from ostomy. Objective - Vital Signs/Intake and Output Vital Signs (last 24 hours): Temp Pulse Resp BP Pulse Ox 98.5 F 80 19 113/77 98 06/06/18 00:07 06/06/18 00:07 06/06/18 00:07 06/06/18 00:07 06/06/18 00:07 Intake and Output: 06/06/18 06/06/18 06:59 18:59 Output Total 2300 Balance -2300 - Medications Medications: Current Medications Acetaminophen (Tylenol 325mg Tab) 650 mg PO Q4 PRN PRN Reason: Pain, Mild (1-3) Last Admin: 06/05/18 16:46 Dose: 650 mg Enoxaparin Sodium (Lovenox) 40 mg SC DAILY [facility]; Protocol Last Admin: 06/05/18 09:18 Dose: 40 mg Famotidine (Pepcid) 20 mg PO DAILY [facility] Last Admin: 06/05/18 09:18 Dose: 20 mg Meropenem 1 gm/ Sodium (Chloride) 100 mls @ 100 mls/hr IVPB Q8 [facility]; Protocol Last Admin: 06/06/18 01:46 Dose: 100 mls/hr Metronidazole (Flagyl 500mg/100ml Ns) 100 mls @ 100 mls/hr IVPB Q8@0200,1000,1800 [facility]; Protocol Last Admin: 06/06/18 02:51 Dose: 100 mls/hr Vancomycin HCl 1 gm/ Sodium (Chloride) 250 mls @ 166.667 mls/hr IVPB Q12 [facility]; Protocol Last Admin: 06/05/18 20:58 Dose: 166.667 mls/hr Magnesium Oxide (Mag-Ox) 400 mg PO BID [facility] Last Admin: 06/05/18 16:41 Dose: 400 mg Morphine Sulfate (Morphine) 4 mg IVP Q4 PRN PRN Reason: Pain, severe (8-10) Last Admin: 06/02/18 22:07 Dose: 4 mg - Labs Labs: 06/06/18 06:00 06/04/18 05:45 PT 15.1 Seconds (9.8-13.1) H 05/30/18 21:00 INR 1.3 05/30/18 21:00 APTT 37.2 Seconds (25.6-37.1) H 05/30/18 21:00 - Constitutional Appears: Non-toxic, No Acute Distress - Respiratory Exam Respiratory Exam: Clear to Ausculation Bilateral, NORMAL BREATHING PATTERN - Cardiovascular Exam Cardiovascular Exam: REGULAR RHYTHM, +S1, +S2 - GI/Abdominal Exam GI & Abdominal Exam: Soft. absent: Distended, Firm, Guarding, Rigid, Tenderness, Rebound Additional comments: stoma pink and patent - Extremities Exam Extremities Exam: absent: Pedal Edema, Tenderness - Neurological Exam Neurological Exam: Alert, Awake - Skin Skin Exam: Dry, Intact, Normal Color, Warm Assessment and Plan - Assessment and Plan (Free Text) Assessment: 43M s/p pallavi's procedure POD#5 Plan: - cont diet - monitor ostomy - portillo in place, will keep in - ambulate/OOB - Incentive spirometer - ID recs - Clear from surgery Further recs discuss with Dr. Joe Calvillo, PGY3
[2018-06-06] MEDS: Enoxaparin 40 mg Syringe SC SCH (08:29)
[2018-06-06] MEDS: Magnesium Oxide 400 mg Tab UD PO SCH (08:32)
[2018-06-06 08:59] VITALS: BP 102/68; PULSE 78; RESP 20; TEMP 98.4; O2SAT 99
--- NOTE | 2018-06-06 16:28 | PN ---
DATE: 06/06/2018 SUBJECTIVE: This 43-year-old status post Issac procedure for diverticulitis. I feel that the Chow in place, making loss of urine. The abdomen is soft and nontender. We will discuss removing the Chow, but from my point of view, it is no longer necessary. The pathology report from 05/31/2018, showed severe chronic acute inflammation of the bladder wall, diverticulitis. There is no evidence of cancer, but it was highly inflamed, probably knew that. In any case, from my point of review, the patient can be discharged to my office when he is cleared by medicine. Kishor Diaz MD
--- NOTE | 2018-06-06 19:18 | CP.PCM.DIS ---
Provider - Provider Date of Admission: 05/24/18 18:14 Attending physician: Rodrick Dupree MD Consults: 05/25/18 16:55 Surgical [General Surgery Consult] Routine Comment: Consulting Provider: Kishor Diaz Consulting Physician: Kishor Diaz Reason for Consult: Colovesicular dx 05/26/18 11:32 Infectious Disease Consult Routine Comment: Consulting Provider: Yan Yi Consulting Physician: Yan Yi Reason for Consult: esbl + urine 05/26/18 18:51 Gastroenterology Consult Routine Comment: Consulting Provider: Cayden Carter Consulting Physician: Cayden Carter Reason for Consult: colovesicular fistula Urology Consult Routine Comment: Consulting Provider: Mark Frank Jr. Consulting Physician: Mark Frank Jr. 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0 g/dL (12.0-18.0) 06/06/18 06:00 Hct 38.6 % (35.0-51.0) 06/06/18 06:00 MCV 94.0 fl (80.0-94.0) D 06/06/18 06:00 MCH 31.7 pg (27.0-31.0) H 06/06/18 06:00 MCHC 33.7 g/dL (33.0-37.0) 06/06/18 06:00 RDW 12.9 % (11.5-14.5) 06/06/18 06:00 Plt Count 360 K/uL (130-400) D 06/06/18 06:00 MPV 9.0 fl (7.2-11.7) 06/04/18 05:45 Neut % (Auto) 48.4 % (50.0-75.0) L 06/04/18 05:45 Lymph % (Auto) 30.3 % (20.0-40.0) 06/04/18 05:45 Park % (Auto) 11.8 % (0.0-10.0) H 06/04/18 05:45 Eos % (Auto) 8.9 % (0.0-4.0) H 06/04/18 05:45 Baso % (Auto) 0.6 % (0.0-2.0) 06/04/18 05:45 Neut # (Auto) 2.8 K/uL (1.8-7.0) 06/04/18 05:45 Lymph # (Auto) 1.8 K/uL (1.0-4.3) 06/04/18 05:45 Park # (Auto) 0.7 K/uL (0.0-0.8) 06/04/18 05:45 Eos # (Auto) 0.5 K/uL (0.0-0.7) 06/04/18 05:45 Baso # (Auto) 0.0 K/uL (0.0-0.2) 06/04/18 05:45 Neutrophils % (Manual) 78 % (42-75) H 06/01/18 05:30 Band Neutrophils % 6 % (0-2) H 06/01/18 05:30 Lymphocytes % (Manual) 8 % (20-50) L 06/01/18 05:30 Monocytes % (Manual) 8 % (0-10) 06/01/18 05:30 Platelet Estimate Normal (NORMAL) 06/01/18 05:30 RBC Morphology Normal (NORMAL) 06/01/18 05:30 PT 15.1 Seconds (9.8-13.1) H 05/30/18 21:00 INR 1.3 05/30/18 21:00 APTT 37.2 Seconds (25.6-37.1) H 05/30/18 21:00 Sodium 138 mmol/l (132-148) 06/04/18 05:45 Potassium 3.6 MMOL/L (3.6-5.0) 06/04/18 05:45 Chloride 100 mmol/L (98-107) 06/04/18 05:45 Carbon Dioxide 33 mmol/L (22-30) H 06/04/18 05:45 Anion Gap 9 (10-20) L 06/04/18 05:45 BUN 11 mg/dl (9-20) 06/04/18 05:45 Creatinine 0.8 mg/dl (0.8-1.5) 06/04/18 05:45 Est GFR ( Amer) > 60 06/04/18 05:45 Est GFR (Non-Af Amer) > 60 06/04/18 05:45 Random Glucose 101 mg/dL (75-110) 06/04/18 05:45 Calcium 8.8 mg/dL (8.4-10.2) 06/04/18 05:45 Phosphorus 3.6 mg/dl (2.5-4.5) 06/04/18 05:45 Magnesium 1.7 MG/DL (1.6-2.3) 06/04/18 05:45 Total Bilirubin 1.2 mg/dl (0.2-1.3) 05/31/18 05:45 AST 62 U/L (17-59) H D 05/31/18 05:45 ALT 55 U/L (21-72) 05/31/18 05:45 Alkaline Phosphatase 72 U/L (38-126) 05/31/18 05:45 Total Protein 7.2 G/DL (6.3-8.2) 05/31/18 05:45 Albumin 3.6 g/dL (3.5-5.0) 05/31/18 05:45 Globulin 3.6 gm/dL (2.2-3.9) 05/31/18 05:45 Albumin/Globulin Ratio 1.0 (1.0-2.1) 05/31/18 05:45 Triglycerides 83 mg/DL (0-149) 05/25/18 05:30 Cholesterol 134 mg/dL (0-199) 05/25/18 05:30 LDL Cholesterol Direct 93 mg/dL (0-129) 05/25/18 05:30 HDL Cholesterol 29 MG/DL (30-70) L 05/25/18 05:30 Thyroxine (T4) 8.32 ug/dl (5.5-11.0) 05/25/18 05:30 TSH 3rd Generation 3.11 mIU/ML (0.46-4.68) 05/25/18 05:30 Urine Color Yellow (YELLOW) 05/24/18 17:30 Urine Clarity Cloudy (Clear) 05/24/18 17:30 Urine pH 6.0 (5.0-8.0) 05/24/18 17:30 Ur Specific [place] 1.008 (1.003-1.030) 05/24/18 17:30 Urine Protein Negative mg/dL (NEGATIVE) 05/24/18 17:30 Urine Glucose (UA) Neg mg/dL (NEGATIVE) 05/24/18 17:30 Urine Ketones Negative mg/dL (NEGATIVE) 05/24/18 17:30 Urine Blood Large (NEGATIVE) 05/24/18 17:30 Urine Nitrate Negative (NEGATIVE) 05/24/18 17:30 Urine Bilirubin Negative (NEGATIVE) 05/24/18 17:30 Urine Urobilinogen 0.2-1.0 mg/dL (0.2-1.0) 05/24/18 17:30 Ur Leukocyte Esterase Large Archie/uL (Negative) 05/24/18 17:30 Urine RBC (Auto) 129 /hpf (0-3) H 05/24/18 17:30 Urine WBC Clumps (Auto) Few /hpf (NONE) H 05/24/18 17:30 Urine Microscopic WBC 268 /hpf (0-5) H 05/24/18 17:30 Urine Bacteria Rare (<OCC) 05/24/18 17:30 Vancomycin Trough 9.9 ug/mL (5.0-10.0) 06/05/18 20:30 Blood Type O POSITIVE 05/29/18 06:10 Blood Type Confirm O POSITIVE 05/29/18 08:01 Antibody Screen Negative 05/29/18 06:10 Crossmatch See Detail 05/29/18 06:10 BBK History Checked No verified bt 05/29/18 06:10 Discharge Exam - Head Exam Head Exam: NORMAL INSPECTION Discharge Plan - Discharge Medications Prescriptions: Cefuroxime Axetil [Cefuroxime] 500 mg PO DAILY #7 tablet - Follow Up Plan Condition: STABLE Disposition: HOME/ ROUTINE Instructions: How to Care for Your Ostomy, Adult, Chow Catheter, Male, Col ostomy Care Additional Instructions: follow up with primary MD 1 week Follow up with Dr. Diaz in 1 week follow up with dr frank in 1 week Referrals: Mark Frank Jr., MD [Staff Provider] - Yan Yi MD [Medical Doctor] - Cayden Carter MD [Staff Provider] - Kishor Diaz MD [Staff Provider] -
== END 2018-06-06 15:08 | disposition home or self-care (01) | DRG 441 ==
LOC: H.ER 16:23 → H.ERHOLD 18:14 → H.MEDSURG1 22:05
PROVIDERS: ADMIT Internal Medicine Pulmonary Disease; ATTEND Internal Medicine Pulmonary Disease
PROC: 0DTN0ZZ Resection of Sigmoid Colon, Open Approach (ICD-10-PCS; 2018-05-31)
PROC: 0TQB0ZZ Repair Bladder, Open Approach (ICD-10-PCS; principal; 2018-05-31 13:45)
PROC: 0D1M0Z4 Bypass Descending Colon to Cutaneous, Open Approach (ICD-10-PCS; 2018-05-31 13:45)
DX: N32.1 Vesicointestinal fistula (principal); K57.20 Diverticulitis of large intestine with perforation and abscess without bleeding; B96.20 Unspecified Escherichia coli [E. coli] as the cause of diseases classified elsewhere; R39.89 Other symptoms and signs involving the genitourinary system; N30.20 Other chronic cystitis without hematuria; K59.00 Constipation, unspecified